=== PATIENT | female | born 1965 | race Hispanic/Latino ===

== ENCOUNTER 2017-10-26 04:34 | Emergency (ER) | payer SELFPAY ==
[2017-10-26 06:22] LABS: BASOPHILS % (AUTO) 0.3 % (0.0-5.0); EOSINOPHILS % (AUTO) 1.5 % (0.0-8.0); HEMATOCRIT 42.7 % (36-48); LYMPHOCYTES % (AUTO) 37.8 % (21.0-51.0); MEAN CORPUSCULAR HEMOGLOBIN 26.5 pg (27.0-33.0); MEAN CORPUSCULAR HGB CONC 34.3 g/dL (32.0-36.0); MEAN CORPUSCULAR VOLUME 77.3 fL (79-99); MONOCYTES % (AUTO) 5.7 % (3.0-13.0); NEUTROPHILS % (AUTO) 54.7 % (40.0-77.0); NUCLEATED RED BLOOD CELLS 0.1 % (0.0-0.19); PLATELET COUNT (AUTO) 179 K/uL (130-400); RED BLOOD CELL COUNT(AUTO) 5.53 MIL/uL (4.00-5.50); RED CELL DISTRIBUTION WIDTH 14.6 % (11.0-15.5); WHITE BLOOD COUNT (AUTO) 5.3 K/uL (4.8-10.8)
[2017-10-26 06:33] LABS: CREATININE 0.6 mg/dL (0.5-1.5); POTASSIUM 3.7 mmol/L (3.5-5.1)
[2017-10-26 06:36] LABS: APPEARANCE,URINE CLEAR (CLEAR); BILIRUBIN,URINE NEGATIVE (NEGATIVE); COLOR,URINE YELLOW (YELLOW); GLUCOSE, URINE (UA) >=1000 mg/dL (NEGATIVE); KETONES,URINE NEGATIVE (NEGATIVE); LEUKOCYTE ESTERASE ,URINE SMALL (NEGATIVE); NITRATE,URINE NEGATIVE (NEGATIVE); OCCULT BLOOD,URINE NEGATIVE (NEGATIVE); PROTEIN,URINE NEGATIVE (NEGATIVE); UROBILINOGEN,URINE 0.2 mg/dL (0.2-1.0)
[2017-10-26 06:39] LABS: ALBUMIN 3.9 g/dL (3.5-5.0); BILIRUBIN,TOTAL 0.3 mg/dL (0.2-1.0); TOTAL PROTEIN, SERUM 8.1 g/dL (6.0-8.3)
[2017-10-26 06:51] LABS: BACTERIA,URINE Few /HPF (None Seen); RBC,URINE 0-1 /HPF (0-1); SQUAMOUS EPITHELIAL CELL,UR Few /LPF (0-2)
[2017-10-26] MEDS ORDERED: IOPAMIDOL-370 100 ML VIAL IV ONE (08:42)
[2017-10-26] MEDS ORDERED: ONDANSETRON HCL 4 MG/2 ML VIAL ONE (09:49)
[2017-10-26] MEDS ORDERED: DiphenhydrAMINE HCL 50 MG/ML VIAL ONE (09:49)
[2017-10-26] MEDS ORDERED: METOCLOPRAMIDE 10 MG/2 ML VIAL ONE (09:49)
[2017-10-26] MEDS ORDERED: KETOROLAC TROMETHAMINE 30MG/ML ONE (09:49)
== END 2017-10-26 12:24 | disposition home or self-care (01) ==
LOC: EDH 04:34
DX: G44.209 Tension-type headache, unspecified, not intractable (principal); R10.9 Unspecified abdominal pain; R10.2 Pelvic and perineal pain; E11.9 Type 2 diabetes mellitus without complications; D64.9 Anemia, unspecified; Z90.49 Acquired absence of other specified parts of digestive tract; Z98.890 Other specified postprocedural states; Z88.5 Allergy status to narcotic agent
CPT/HCPCS: 36415; 74177; 80053; 81001; 85025; 96374; 96375; 99285; J1200; J1885; J2405; J2765; Q9967

== ENCOUNTER 2019-01-03 02:27 | Emergency (ER) | payer SELFPAY ==
[2019-01-03 03:21] LABS: BASOPHILS % (AUTO) 0.3 % (0.0-5.0); EOSINOPHILS % (AUTO) 1.8 % (0.0-8.0); HEMATOCRIT 40.2 % (36-48); MEAN CORPUSCULAR HEMOGLOBIN 26.4 pg (27.0-33.0); MEAN CORPUSCULAR HGB CONC 33.8 g/dL (32.0-36.0); NEUTROPHILS % (AUTO) 53.9 % (40.0-77.0); PLATELET COUNT (AUTO) 180 K/uL (130-400); RED BLOOD CELL COUNT(AUTO) 5.15 MIL/uL (4.00-5.50); RED CELL DISTRIBUTION WIDTH 14.1 % (11.0-15.5); WHITE BLOOD COUNT (AUTO) 5.6 K/uL (4.8-10.8)
[2019-01-03 03:22] LABS: APPEARANCE,URINE Clear (CLEAR); BILIRUBIN,URINE Negative (NEGATIVE); COLOR,URINE Yellow (YELLOW); GLUCOSE, URINE (UA) >=1000 mg/dL (NEGATIVE); KETONES,URINE Negative (NEGATIVE); LEUKOCYTE ESTERASE ,URINE Negative (NEGATIVE); NITRATE,URINE Negative (NEGATIVE); OCCULT BLOOD,URINE Negative (NEGATIVE); PH,URINE 5.5 (5.0-8.0); PROTEIN,URINE Negative (NEGATIVE); UROBILINOGEN,URINE 0.2 mg/dL (0.2-1.0)
[2019-01-03 03:28] LABS: CREATININE 0.7 mg/dL (0.5-1.5); POTASSIUM 3.8 mmol/L (3.5-5.1)
[2019-01-03 03:29] LABS: AMPHET/METH SCREEN,URINE NEGATIVE (NEGATIVE); BARBITURATE SCREEN, URINE NEGATIVE (NEGATIVE); BENZODIAZEPINES SCREEN,URINE NEGATIVE (NEGATIVE); CANNABINOID SCREEN,URINE NEGATIVE (NEGATIVE); COCAINE SCREEN,URINE NEGATIVE (NEGATIVE); OPIATE SCREEN,URINE NEGATIVE (NEGATIVE); PHENCYCLIDINE SCREEN,URINE NEGATIVE (NEGATIVE)
[2019-01-03 03:32] LABS: BILIRUBIN,TOTAL 0.3 mg/dL (0.2-1.0); TOTAL PROTEIN, SERUM 8.2 g/dL (6.0-8.3)
[2019-01-03 03:33] LABS: INR 0.84 (0.85-1.15); PARTIAL THROMBOPLASTIN TIME 27.3 SEC (26.3-35.5); PROTHROMBIN TIME 8.9 SEC (9.6-11.6)
== END 2019-01-03 05:27 | disposition home or self-care (01) ==
LOC: EDH 02:27
DX: E11.65 Type 2 diabetes mellitus with hyperglycemia (principal); E86.0 Dehydration; R53.1 Weakness; Z90.49 Acquired absence of other specified parts of digestive tract; Z98.890 Other specified postprocedural states; Z88.6 Allergy status to analgesic agent
CPT/HCPCS: 36415; 71045; 80053; 80305; 81003; 82150; 82550; 83690; 84484; 85025; 85610; 85730; 93005; 96360; 96374

== ENCOUNTER 2019-04-04 19:18 | Emergency (ER) | payer SELFPAY ==
[2019-04-04] MEDS ORDERED: FAMOTIDINE/PF 20 MG/2 ML VIAL IV ONE (19:55)
[2019-04-04 20:18] LABS: BASOPHILS % (AUTO) 0.3 % (0.0-5.0); EOSINOPHILS % (AUTO) 1.8 % (0.0-8.0); HEMATOCRIT 39.5 % (36-48); LYMPHOCYTES % (AUTO) 39.3 % (21.0-51.0); MEAN CORPUSCULAR HEMOGLOBIN 26.6 pg (27.0-33.0); MEAN CORPUSCULAR HGB CONC 33.3 g/dL (32.0-36.0); MEAN CORPUSCULAR VOLUME 79.9 fL (79-99); MONOCYTES % (AUTO) 8.8 % (3.0-13.0); NEUTROPHILS % (AUTO) 49.8 % (40.0-77.0); NUCLEATED RED BLOOD CELLS 0.1 % (0.0-0.19); PLATELET COUNT (AUTO) 137 K/uL (130-400); RED BLOOD CELL COUNT(AUTO) 4.94 MIL/uL (4.00-5.50); RED CELL DISTRIBUTION WIDTH 13.9 % (11.0-15.5); WHITE BLOOD COUNT (AUTO) 3.5 K/uL (4.8-10.8)
[2019-04-04 20:27] LABS: CREATININE 0.7 mg/dL (0.5-1.5); POTASSIUM 3.2 mmol/L (3.5-5.1)
[2019-04-04 20:34] LABS: ALBUMIN 3.7 g/dL (3.5-5.0); BILIRUBIN,DIRECT 0.1 mg/dL (0.0-0.3); BILIRUBIN,TOTAL 0.3 mg/dL (0.2-1.0); TOTAL PROTEIN, SERUM 7.7 g/dL (6.0-8.3)
[2019-04-04] MEDS ORDERED: SODIUM CHLORIDE 0.9% 1000ML 1,000 ML IV ONE (20:45)
[2019-04-04 20:49] LABS: B-TYPE NATRIURETIC PEPTIDE 13 pg/mL (0-100)
[2019-04-04 21:14] LABS: APPEARANCE,URINE Clear (CLEAR); BILIRUBIN,URINE Negative (NEGATIVE); COLOR,URINE Yellow (YELLOW); GLUCOSE, URINE (UA) >=1000 mg/dL (NEGATIVE); KETONES,URINE Trace mg/dL (NEGATIVE); LEUKOCYTE ESTERASE ,URINE Negative (NEGATIVE); NITRATE,URINE Negative (NEGATIVE); OCCULT BLOOD,URINE Negative (NEGATIVE); PROTEIN,URINE Trace mg/dL (NEGATIVE)
[2019-04-04 21:33] LABS: BACTERIA,URINE Few /HPF (None Seen); MUCUS,URINE Few LPF (None Seen); RBC,URINE 0-1 /HPF (0-1); WBC,URINE 0-1 /HPF (0-1); YEAST,URINE BUDDING Few /HPF (None Seen)
== END 2019-04-04 22:39 | disposition home or self-care (01) ==
LOC: EDH 19:18
DX: R10.13 Epigastric pain (principal); R19.7 Diarrhea, unspecified; B96.81 Helicobacter pylori [H. pylori] as the cause of diseases classified elsewhere; E11.9 Type 2 diabetes mellitus without complications; Z88.5 Allergy status to narcotic agent
CPT/HCPCS: 36415; 80048; 80076; 81001; 82550; 83690; 83880; 84484; 85025; 86677; 93005; 96361; 96374; 99285; J3490; J7030

== ENCOUNTER 2020-01-07 01:17 | Observation (INO) | payer SELFPAY ==
[2020-01-07] MEDS ORDERED: NITROGLYCERIN 1GM/1 INCH PACKET TD ONE (01:37)
[2020-01-07] MEDS ORDERED: ASPIRIN 325 MG TABLET ONE (01:37)
[2020-01-07] MEDS ORDERED: ACETAMINOPHEN EXTRA STRENGTH 500 MG TABLET ONE (01:38)
[2020-01-07 01:55] LABS: BASOPHILS % (AUTO) 0.2 % (0.0-5.0); EOSINOPHILS % (AUTO) 1.1 % (0.0-8.0); HEMATOCRIT 40.1 % (36-48); LYMPHOCYTES % (AUTO) 44.9 % (21.0-51.0); MEAN CORPUSCULAR HEMOGLOBIN 26.4 pg (27.0-33.0); MEAN CORPUSCULAR HGB CONC 33.9 g/dL (32.0-36.0); MEAN CORPUSCULAR VOLUME 77.7 fL (79-99); MONOCYTES % (AUTO) 6.8 % (3.0-13.0); PLATELET COUNT (AUTO) 179 K/uL (130-400); RED BLOOD CELL COUNT(AUTO) 5.16 MIL/uL (4.00-5.50); RED CELL DISTRIBUTION WIDTH 12.7 % (11.0-15.5); WHITE BLOOD COUNT (AUTO) 5.3 K/uL (4.8-10.8)
[2020-01-07 02:10] LABS: INR 0.9 (0.85-1.15); PARTIAL THROMBOPLASTIN TIME 25.4 SEC (26.3-35.5); PROTHROMBIN TIME 9.8 SEC (9.6-11.6)
[2020-01-07 02:14] LABS: CREATININE 0.8 mg/dL (0.5-1.5); POTASSIUM 3.8 mmol/L (3.5-5.1)
[2020-01-07 02:19] LABS: ALBUMIN 4.2 g/dL (3.5-5.0); BILIRUBIN,TOTAL 0.3 mg/dL (0.2-1.0); TOTAL PROTEIN, SERUM 8.2 g/dL (6.0-8.3)
[2020-01-07 02:29] LABS: B-TYPE NATRIURETIC PEPTIDE 10 pg/mL (0-100)
[2020-01-07] MEDS ORDERED: LACTULOSE 20 GM/30 ML UDCUP PO PRN (03:00)
[2020-01-07] MEDS ORDERED: ONDANSETRON HCL 4 MG/2 ML VIAL IV PRN (03:00)
[2020-01-07] MEDS ORDERED: NITROGLYCERIN 0.4 MG SL TAB SL PRN (03:00)
[2020-01-07] MEDS ORDERED: HYDRALAZINE HCL 20 MG/ML VIAL IV PRN (03:00)
[2020-01-07] MEDS ORDERED: ACETAMINOPHEN 325 MG TAB PO PRN (03:00)
[2020-01-07] MEDS: SODIUM CHLORIDE 0.9% 1000ML 1,000 ML IV SCH ×2 (05:10→16:58)
[2020-01-07 05:30] VITALS: BP 160/77
--- NOTE | 2020-01-07 05:30 | NUR ---
ADMISSION PT TRANSFERRED FROM ER INTO ROOM 308, AWAKE, ALERT AND VERBALLY RESPONSIVE. NO C/O PAIN OR DISCOMFORT AT THIS TIME. TELEMETRY PLACED. PT ORIENTED TO ROOM, CALL GRAMAJO WITHIN REACH, BED IN LOWEST POSITION Addendum: 01/07/20 at 0653 by YESSICA LARA RN Amended: Links added.
[2020-01-07 05:38] LABS: HEMOGLOBIN A1C 11.5 % (4.0-6.0); THYROID STIMULATING HORMONE 2.82 uIU/mL (0.36-3.74)
[2020-01-07 07:18] VITALS: BP 139/69
[2020-01-07] MEDS ORDERED: INSLAN SQ (07:41)
[2020-01-07] MEDS ORDERED: SITA100T12 PO (07:41)
[2020-01-07] MEDS ORDERED: LISI10TA7 PO (07:41)
[2020-01-07] MEDS ORDERED: ATOR40TA69 PO (07:41)
[2020-01-07] MEDS: INSULIN HUMULIN R 100 UNIT/ML 3ML SQ SCH ×3 (07:50→18:00)
[2020-01-07] MEDS ORDERED: ASPIRIN 81MG TAB.CHEW ONE (08:00)
[2020-01-07] MEDS: FAMOTIDINE 20MG TAB 20 MG TAB PO SCH ×2 (08:26→21:17)
[2020-01-07] MEDS: ASPIRIN 81MG TAB.CHEW PO SCH (08:26)
[2020-01-07] MEDS: METOPROLOL TARTRATE 25 MG TAB PO SCH ×2 (08:27→21:17)
[2020-01-07] MEDS: ENOXAPARIN SODIUM 40 MG/0.4 ML SYRINGE SQ SCH (08:36)
[2020-01-07] MEDS: ACETAMINOPHEN 325 MG TAB PO PRN (08:38)
[2020-01-07] MEDS ORDERED: LISINOPRIL 10 MG TABLET PO SCH ×2 (09:00→21:00)
[2020-01-07 10:48] VITALS: BP 110/59
[2020-01-07 15:43] VITALS: BP 103/53
--- NOTE | 2020-01-07 16:25 | NUR ---
CM NOTE/IA MEET WITH PATIENT IN ROOM. PER PATIENT IS INDEPENDENT WITH ADLS, LIVES WITH SPOUSE, DOESNT DRIVE AT THE MOMENT DUE TO CATARACT BUT SPOUSE DRIVES TO APPOINTMENTS, NO DME IN USE, NO COMMUNITY RESOURCES IN USE, AND FEELS SAFE TO RETURN HOME ONCE DISCHARGE. PATIENT IS UNINSURED, SELF PAY PACKET ALONG WITH GOOD RX COUPON GIVEN, PATIENT VERBALIZED UNDERSTANDING OF PACKET AND COUPON. Addendum: 01/07/20 at 1626 by ALEXUS CASAS RN CM Amended: Links added.
[2020-01-07 20:00] VITALS: BP 118/60
[2020-01-07] MEDS ORDERED: ATORVASTATIN CALCIUM 20 MG TABLET PO SCH (21:00)
[2020-01-08] VITALS: BP 138/68
[2020-01-08] MEDS: SODIUM CHLORIDE 0.9% 1000ML 1,000 ML IV SCH ×2 (01:42→09:37)
[2020-01-08] MEDS: ACETAMINOPHEN 325 MG TAB PO PRN (02:27)
[2020-01-08 03:56] VITALS: BP 131/62
[2020-01-08] MEDS ORDERED: KETOROLAC TROMETHAMINE 15MG/ML IV PRN (05:15)
[2020-01-08 05:30] LABS: BASOPHILS % (AUTO) 0.2 % (0.0-5.0); EOSINOPHILS % (AUTO) 1.3 % (0.0-8.0); HEMATOCRIT 34.1 % (36-48); LYMPHOCYTES % (AUTO) 37.1 % (21.0-51.0); MEAN CORPUSCULAR HEMOGLOBIN 26.4 pg (27.0-33.0); MEAN CORPUSCULAR HGB CONC 33.7 g/dL (32.0-36.0); MEAN CORPUSCULAR VOLUME 78.2 fL (79-99); NEUTROPHILS % (AUTO) 55.2 % (40.0-77.0); PLATELET COUNT (AUTO) 133 K/uL (130-400); RED BLOOD CELL COUNT(AUTO) 4.36 MIL/uL (4.00-5.50); RED CELL DISTRIBUTION WIDTH 12.7 % (11.0-15.5); WHITE BLOOD COUNT (AUTO) 5.4 K/uL (4.8-10.8)
[2020-01-08 05:37] LABS: CREATININE 0.6 mg/dL (0.5-1.5); POTASSIUM 3.5 mmol/L (3.5-5.1)
--- NOTE | 2020-01-08 06:00 | NUR ---
PATIENT COMPLAINED ON AND OFF PAIN ON RIGHT FLANK. SPOKE WITH YESIKA NAVAL ENGINEER, SHE ORDERED URINALYSIS, AND TORADOL PRN IV. COMFORT MEasures rendered. pt denied any dyspnea nor chest pain overnight. no headache nor dizziness nor nausea nor vomiting,
[2020-01-08] MEDS: INSULIN HUMULIN R 100 UNIT/ML 3ML SQ SCH ×4 (06:35→16:41)
[2020-01-08 08:00] VITALS: BP 135/61
[2020-01-08 08:39] LABS: APPEARANCE,URINE Clear (CLEAR); BILIRUBIN,URINE Negative (NEGATIVE); COLOR,URINE Yellow (YELLOW); GLUCOSE, URINE (UA) Negative (NEGATIVE); KETONES,URINE Negative (NEGATIVE); LEUKOCYTE ESTERASE ,URINE Small (NEGATIVE); NITRATE,URINE Negative (NEGATIVE); OCCULT BLOOD,URINE Negative (NEGATIVE); PROTEIN,URINE Negative (NEGATIVE); UROBILINOGEN,URINE 0.2 mg/dL (0.2-1.0)
[2020-01-08 08:58] LABS: BACTERIA,URINE Rare /HPF (None Seen); RBC,URINE None Seen /HPF (0-1)
[2020-01-08] MEDS ORDERED: LINAGLIPTIN 5 MG TABLET PO SCH (09:00)
[2020-01-08] MEDS: ASPIRIN 81MG TAB.CHEW PO SCH (09:06)
[2020-01-08] MEDS: FAMOTIDINE 20MG TAB 20 MG TAB PO SCH (09:07)
[2020-01-08] MEDS: METOPROLOL TARTRATE 25 MG TAB PO SCH (09:07)
[2020-01-08] MEDS: ENOXAPARIN SODIUM 40 MG/0.4 ML SYRINGE SQ SCH (09:08)
[2020-01-08 11:00] VITALS: BP 131/60
--- NOTE | 2020-01-08 11:30 | NUR ---
Jamil BUCHANAN, FOUNTAIN ATTENDANT Jamil BUCHANAN, FOUNTAIN ATTENDANT ROUNDING AT THIS TIME. UPDATED ON PATIENT STATUS, RIGHT FLANK PAIN CONTINUES AND PENDING URINE CULTURE RESULTS. Jamil BUCHANAN ORDERED TO ADVANCE PATIENTS DIET TOLERATED SINCE PATIENT STILL NPO.
[2020-01-08 16:00] VITALS: BP 130/58
== END 2020-01-08 18:00 | disposition home or self-care (01) ==
LOC: EDH 01:17 → EDHIP 01:18 → INTOOBSV 01:18 → OBSVTOIN 01:18 → 3BH 04:47
PROVIDERS: ADMIT Internal Medicine; ATTEND Internal Medicine
DX: I16.0 Hypertensive urgency (principal); E11.65 Type 2 diabetes mellitus with hyperglycemia; E78.5 Hyperlipidemia, unspecified; E78.00 Pure hypercholesterolemia, unspecified; Z90.721 Acquired absence of ovaries, unilateral; Z88.5 Allergy status to narcotic agent
CPT/HCPCS: 36415 ×2; 71045; 74176; 80048; 80053; 80061; 81001; 82550; 82948 ×6; 83036; 83690 ×2; 83880; 84443; 84484 ×3; 85025 ×2; 85610; 85730; 87088; 93005 ×3; 96361 ×2; 96372 ×3; 96374; 99291; A4600; G0378 ×24; J1650 ×2; J1815 ×3; J1885; J7030

== ENCOUNTER 2020-06-04 07:46 | Emergency (ER) | payer OTHER ==
[~2020-06-04 07:46] MED LIST: ATOR40TA69 PO; INSLAN SQ; LISI10TA7 PO; SITA100T12 PO
[2020-06-04] MEDS ORDERED: CLONIDINE HCL 0.2 MG TABLET PO ONE (08:22)
[2020-06-04] MEDS ORDERED: ACETAMINOPHEN EXTRA STRENGTH 500 MG TABLET ONE (08:24)
[2020-06-04 09:03] LABS: BASOPHILS % (AUTO) 0.2 % (0.0-5.0); EOSINOPHILS % (AUTO) 2.4 % (0.0-8.0); HEMATOCRIT 38.7 % (36-48); LYMPHOCYTES % (AUTO) 40.2 % (21.0-51.0); MEAN CORPUSCULAR HEMOGLOBIN 26.4 pg (27.0-33.0); MEAN CORPUSCULAR HGB CONC 33.6 g/dL (32.0-36.0); MEAN CORPUSCULAR VOLUME 78.7 fL (79-99); PLATELET COUNT (AUTO) 186 K/uL (130-400); RED BLOOD CELL COUNT(AUTO) 4.92 MIL/uL (4.00-5.50); WHITE BLOOD COUNT (AUTO) 4.7 K/uL (4.8-10.8)
[2020-06-04 09:34] LABS: ALBUMIN 3.9 g/dL (3.5-5.0); BILIRUBIN,TOTAL 0.3 mg/dL (0.2-1.0); CREATININE 0.8 mg/dL (0.5-1.5); POTASSIUM 3.7 mmol/L (3.5-5.1)
== END 2020-06-04 10:36 | disposition home or self-care (01) ==
LOC: EDH 07:46
DX: R51 Headache (principal); I10 Essential (primary) hypertension; E11.9 Type 2 diabetes mellitus without complications; E78.00 Pure hypercholesterolemia, unspecified; Z98.890 Other specified postprocedural states; Z88.6 Allergy status to analgesic agent
CPT/HCPCS: 36415; 70450; 80053; 82550; 85025

== ENCOUNTER 2020-09-19 14:07 | Emergency (ER) | payer OTHER, SELFPAY ==
[~2020-09-19 14:07] MED LIST changes: +LISI10TA24 PO; -LISI10TA7 PO
[2020-09-19] MEDS ORDERED: IBUPROFEN 600 MG TABLET ONE (15:29)
[2020-09-19] MEDS ORDERED: ONDANSETRON ODT 4MG TAB ONE (15:30)
[2020-09-19] MEDS ORDERED: AZITHROMYCIN 250 MG TABLET PO ONE (15:42)
[2020-09-19 16:09] LABS: BASOPHILS % (AUTO) 0.3 % (0.0-5.0); EOSINOPHILS % (AUTO) 0.3 % (0.0-8.0); HEMATOCRIT 39.6 % (36-48); LYMPHOCYTES % (AUTO) 34.2 % (21.0-51.0); MEAN CORPUSCULAR HGB CONC 33.3 g/dL (32.0-36.0); MEAN CORPUSCULAR VOLUME 78.1 fL (79-99); MONOCYTES % (AUTO) 8.5 % (3.0-13.0); NEUTROPHILS % (AUTO) 56.7 % (40.0-77.0); PLATELET COUNT (AUTO) 149 K/uL (130-400); RED BLOOD CELL COUNT(AUTO) 5.07 MIL/uL (4.00-5.50); RED CELL DISTRIBUTION WIDTH 12.5 % (11.0-15.5); WHITE BLOOD COUNT (AUTO) 3.1 K/uL (4.8-10.8)
[2020-09-19 16:22] LABS: CREATININE 0.7 mg/dL (0.5-1.5); POTASSIUM 4.1 mmol/L (3.5-5.1)
[2020-09-19 16:26] LABS: ALBUMIN 3.8 g/dL (3.5-5.0); BILIRUBIN,TOTAL 0.3 mg/dL (0.2-1.0); TOTAL PROTEIN, SERUM 8.2 g/dL (6.0-8.3)
== END 2020-09-19 16:51 | disposition home or self-care (01) ==
LOC: EDH 14:07
DX: U07.1 COVID-19 (principal); E11.9 Type 2 diabetes mellitus without complications; E78.00 Pure hypercholesterolemia, unspecified; I10 Essential (primary) hypertension; Z98.890 Other specified postprocedural states
CPT/HCPCS: 36415; 71045; 80053; 85025; 87426

== ENCOUNTER 2020-10-02 00:08 | Emergency (ER) | payer SELFPAY ==
[~2020-10-02 00:08] MED LIST changes: -LISI10TA24 PO; +LISI10TA7 PO
[2020-10-02 00:48] LABS: BASOPHILS % (AUTO) 0.3 % (0.0-5.0); EOSINOPHILS % (AUTO) 1.4 % (0.0-8.0); HEMATOCRIT 38.1 % (36-48); LYMPHOCYTES % (AUTO) 32.8 % (21.0-51.0); MEAN CORPUSCULAR HEMOGLOBIN 25.9 pg (27.0-33.0); MEAN CORPUSCULAR HGB CONC 33.1 g/dL (32.0-36.0); MEAN CORPUSCULAR VOLUME 78.2 fL (79-99); MONOCYTES % (AUTO) 5.9 % (3.0-13.0); NEUTROPHILS % (AUTO) 59.3 % (40.0-77.0); PLATELET COUNT (AUTO) 323 K/uL (130-400); RED BLOOD CELL COUNT(AUTO) 4.87 MIL/uL (4.00-5.50); RED CELL DISTRIBUTION WIDTH 12.2 % (11.0-15.5); WHITE BLOOD COUNT (AUTO) 5.8 K/uL (4.8-10.8)
[2020-10-02] MEDS ORDERED: ACETAMINOPHEN EXTRA STRENGTH 500 MG TABLET ONE (00:50)
[2020-10-02 00:56] LABS: APPEARANCE,URINE Clear (CLEAR); BILIRUBIN,URINE Negative (NEGATIVE); COLOR,URINE Yellow (YELLOW); GLUCOSE, URINE (UA) >=1000 mg/dL (NEGATIVE); KETONES,URINE Negative (NEGATIVE); LEUKOCYTE ESTERASE ,URINE Trace (NEGATIVE); NITRATE,URINE Negative (NEGATIVE); OCCULT BLOOD,URINE Negative (NEGATIVE); PH,URINE 7.5 (5.0-8.0); PROTEIN,URINE Negative (NEGATIVE); UROBILINOGEN,URINE 0.2 mg/dL (0.2-1.0)
[2020-10-02 01:04] LABS: CREATININE 0.8 mg/dL (0.5-1.5); POTASSIUM 3.8 mmol/L (3.5-5.1)
[2020-10-02 01:05] LABS: INR 0.98 (0.85-1.15); PROTHROMBIN TIME 10.5 SEC (9.6-11.6)
[2020-10-02 01:07] LABS: BACTERIA,URINE Few /HPF (None Seen); RBC,URINE None Seen /HPF (0-1)
[2020-10-02 01:07] LABS: PARTIAL THROMBOPLASTIN TIME 26.5 SEC (26.3-35.5)
[2020-10-02 01:08] LABS: ALBUMIN 3.5 g/dL (3.5-5.0); BILIRUBIN,TOTAL 0.2 mg/dL (0.2-1.0); MAGNESIUM 1.7 mg/dL (1.80-2.40); PHOSPHORUS 3.4 mg/dL (2.5-4.9); TOTAL PROTEIN, SERUM 8.4 g/dL (6.0-8.3)
[2020-10-02 01:18] LABS: B-TYPE NATRIURETIC PEPTIDE 39 pg/mL (0-100)
[2020-10-02] MEDS ORDERED: MAGNESIUM 2GM PREMIX 50ML 50 ML IV ONE (02:10)
== END 2020-10-02 06:40 | disposition home or self-care (01) ==
LOC: EDH 00:08
DX: U07.1 COVID-19 (principal); I10 Essential (primary) hypertension; E11.9 Type 2 diabetes mellitus without complications; E78.5 Hyperlipidemia, unspecified; Z88.6 Allergy status to analgesic agent; Z98.890 Other specified postprocedural states
CPT/HCPCS: 36415; 71045; 80053; 81001; 83605; 83735; 83880; 84100; 84145; 84484; 85025; 85378; 85610; 85730; 86140; 87040; 93005; 96365; 96366; 99285; J3475

== ENCOUNTER 2020-10-21 19:54 | Emergency (ER) | payer OTHER, SELFPAY ==
[~2020-10-21 19:54] MED LIST changes: +LISI10TA24 PO; -LISI10TA7 PO
[2020-10-21] MEDS ORDERED: METOCLOPRAMIDE 10 MG/2 ML VIAL ONE (20:15)
[2020-10-21 20:16] LABS: APPEARANCE,URINE Clear (CLEAR); BILIRUBIN,URINE Negative (NEGATIVE); COLOR,URINE Yellow (YELLOW); GLUCOSE, URINE (UA) 500 mg/dL (NEGATIVE); KETONES,URINE Negative (NEGATIVE); LEUKOCYTE ESTERASE ,URINE Small (NEGATIVE); NITRATE,URINE Negative (NEGATIVE); OCCULT BLOOD,URINE Negative (NEGATIVE); PH,URINE 6.5 (5.0-8.0); PROTEIN,URINE Negative (NEGATIVE); UROBILINOGEN,URINE 0.2 mg/dL (0.2-1.0)
[2020-10-21] MEDS ORDERED: PANTOPRAZOLE 40 MG/VIAL ONE (20:16)
[2020-10-21] MEDS ORDERED: ONDANSETRON 4MG INJ ONE (20:16)
[2020-10-21] MEDS ORDERED: FAMOTIDINE 20MG VIAL IV ONE (20:17)
[2020-10-21 20:27] LABS: BASOPHILS % (AUTO) 0.2 % (0.0-5.0); EOSINOPHILS % (AUTO) 1.5 % (0.0-8.0); HEMATOCRIT 40.3 % (36-48); LYMPHOCYTES % (AUTO) 42.7 % (21.0-51.0); MEAN CORPUSCULAR HEMOGLOBIN 26.2 pg (27.0-33.0); MEAN CORPUSCULAR HGB CONC 33.7 g/dL (32.0-36.0); MEAN CORPUSCULAR VOLUME 77.5 fL (79-99); MONOCYTES % (AUTO) 5.6 % (3.0-13.0); NEUTROPHILS % (AUTO) 49.8 % (40.0-77.0); PLATELET COUNT (AUTO) 201 K/uL (130-400); RED CELL DISTRIBUTION WIDTH 13.1 % (11.0-15.5)
[2020-10-21 20:30] LABS: BACTERIA,URINE Rare /HPF (None Seen); RBC,URINE 0-1 /HPF (0-1); SQUAMOUS EPITHELIAL CELL,UR Rare /HPF (0-2)
[2020-10-21 20:54] LABS: CREATININE 0.8 mg/dL (0.5-1.5); POTASSIUM 3.5 mmol/L (3.5-5.1)
[2020-10-21 20:58] LABS: ALBUMIN 4.4 g/dL (3.5-5.0); BILIRUBIN,TOTAL 0.5 mg/dL (0.2-1.0); TOTAL PROTEIN, SERUM 8.7 g/dL (6.0-8.3)
[2020-10-22 04:56] LABS: ABG OXYGEN SATURATION 62.4 % (95.0-99.0); BASE EXCESS,VENOUS BLOOD GAS 0.6 (-2.0-3.0); PCO2,VENOUS BLOOD GAS 45 (32-45); PH,VENOUS BLOOD GAS 7.384 (7.350-7.450)
== END 2020-10-21 22:05 | disposition home or self-care (01) ==
LOC: EDH 19:54
DX: K29.00 Acute gastritis without bleeding (principal); E86.0 Dehydration; I10 Essential (primary) hypertension; E11.9 Type 2 diabetes mellitus without complications; E78.00 Pure hypercholesterolemia, unspecified; Z88.6 Allergy status to analgesic agent; Z98.890 Other specified postprocedural states
CPT/HCPCS: 36415; 36600; 71045; 80053; 81001; 82010; 82803; 83605; 83690; 84484; 85025; 93005; 96374; 96375; 99285; C9113; J2405; J2765; J3490

== ENCOUNTER 2020-11-14 23:00 | Emergency (ER) | payer SELFPAY ==
[2020-11-14] MEDS ORDERED: METOCLOPRAMIDE 10 MG/2 ML VIAL ONE (23:25)
[2020-11-14] MEDS ORDERED: HYDROMORPHONE HCL 0.5 MG/0.5 ML ML ONE (23:26)
[2020-11-14] MEDS ORDERED: HYDRALAZINE HCL 20 MG/ML VIAL ONE (23:26)
[2020-11-14 23:39] LABS: BASOPHILS % (AUTO) 0.2 % (0.0-5.0); EOSINOPHILS % (AUTO) 0.9 % (0.0-8.0); HEMATOCRIT 36.4 % (36-48); MEAN CORPUSCULAR HEMOGLOBIN 26.4 pg (27.0-33.0); MEAN CORPUSCULAR HGB CONC 33.8 g/dL (32.0-36.0); MEAN CORPUSCULAR VOLUME 78.1 fL (79-99); MONOCYTES % (AUTO) 5.5 % (3.0-13.0); NEUTROPHILS % (AUTO) 56.2 % (40.0-77.0); PLATELET COUNT (AUTO) 179 K/uL (130-400); RED BLOOD CELL COUNT(AUTO) 4.66 MIL/uL (4.00-5.50); RED CELL DISTRIBUTION WIDTH 13.2 % (11.0-15.5); WHITE BLOOD COUNT (AUTO) 5.7 K/uL (4.8-10.8)
[2020-11-14 23:47] LABS: CREATININE 0.8 mg/dL (0.5-1.5); POTASSIUM 3.6 mmol/L (3.5-5.1)
[2020-11-14 23:52] LABS: ALBUMIN 3.9 g/dL (3.5-5.0); BILIRUBIN,TOTAL 0.2 mg/dL (0.2-1.0); TOTAL PROTEIN, SERUM 7.7 g/dL (6.0-8.3)
[2020-11-15] MEDS ORDERED: HYDROMORPHONE HCL 0.5 MG/0.5 ML ML ONE (04:17)
[2020-11-15] MEDS ORDERED: ACETAZOLAMIDE SODIUM 500 MG VIAL ONE (06:23)
[2020-11-15] MEDS ORDERED: LATANOPROST 2.5 ML DROPS OU SCH (07:15)
== END 2020-11-15 07:33 | disposition home or self-care (01) ==
LOC: EDH 23:00
DX: I10 Essential (primary) hypertension (principal); R51.9 Headache, unspecified; M54.2 Cervicalgia; Z98.890 Other specified postprocedural states; E11.9 Type 2 diabetes mellitus without complications; E78.00 Pure hypercholesterolemia, unspecified; Z88.6 Allergy status to analgesic agent; Z20.822 Contact with and (suspected) exposure to COVID-19
CPT/HCPCS: 36415; 70450; 80053; 85025; 87426; 96365; 96375 ×2; 96376; 99285; C9803; J0360; J1120; J1170 ×2; J2765; U0003

== ENCOUNTER 2020-12-05 23:32 | Emergency (ER) | payer OTHER ==
[2020-12-05 23:57] LABS: BASOPHILS % (AUTO) 0.2 % (0.0-5.0); EOSINOPHILS % (AUTO) 1.4 % (0.0-8.0); HEMATOCRIT 36.4 % (36-48); LYMPHOCYTES % (AUTO) 43.7 % (21.0-51.0); MEAN CORPUSCULAR HEMOGLOBIN 26.3 pg (27.0-33.0); MEAN CORPUSCULAR HGB CONC 33.5 g/dL (32.0-36.0); MEAN CORPUSCULAR VOLUME 78.4 fL (79-99); NEUTROPHILS % (AUTO) 48.3 % (40.0-77.0); PLATELET COUNT (AUTO) 236 K/uL (130-400); RED BLOOD CELL COUNT(AUTO) 4.64 MIL/uL (4.00-5.50); RED CELL DISTRIBUTION WIDTH 14.3 % (11.0-15.5); WHITE BLOOD COUNT (AUTO) 5.6 K/uL (4.8-10.8)
[2020-12-06 00:07] LABS: APPEARANCE,URINE Clear (CLEAR); BILIRUBIN,URINE Negative (NEGATIVE); COLOR,URINE Yellow (YELLOW); GLUCOSE, URINE (UA) 500 mg/dL (NEGATIVE); KETONES,URINE Negative (NEGATIVE); LEUKOCYTE ESTERASE ,URINE Moderate (NEGATIVE); NITRATE,URINE Negative (NEGATIVE); OCCULT BLOOD,URINE Negative (NEGATIVE); PH,URINE 6.5 (5.0-8.0); PROTEIN,URINE Negative (NEGATIVE); UROBILINOGEN,URINE 0.2 mg/dL (0.2-1.0)
[2020-12-06 00:17] LABS: BILIRUBIN,TOTAL 0.2 mg/dL (0.2-1.0); CREATININE 0.7 mg/dL (0.5-1.5)
[2020-12-06 00:20] LABS: B-TYPE NATRIURETIC PEPTIDE 14 pg/mL (0-100)
[2020-12-06 00:25] LABS: INR 0.97 (0.85-1.15); PROTHROMBIN TIME 10.6 SEC (9.6-11.6)
[2020-12-06 00:26] LABS: PARTIAL THROMBOPLASTIN TIME 25.4 SEC (26.3-35.5)
[2020-12-06 00:37] LABS: BACTERIA,URINE Few /HPF (None Seen); MUCUS,URINE Moderate LPF (None Seen); RBC,URINE 0-1 /HPF (0-1); SQUAMOUS EPITHELIAL CELL,UR Moderate /HPF (0-2)
[2020-12-06] MEDS ORDERED: LABETALOL 20 MG/4 ML DISP.SYRIN IV ONE (00:37)
[2020-12-06] MEDS ORDERED: CEFTRIAXONE SODIUM 1 GM ONE (02:32)
== END 2020-12-06 03:00 | disposition home or self-care (01) ==
LOC: EDH 23:32
DX: N39.0 Urinary tract infection, site not specified (principal); R07.89 Other chest pain; I10 Essential (primary) hypertension; E11.9 Type 2 diabetes mellitus without complications; E78.00 Pure hypercholesterolemia, unspecified; Z88.6 Allergy status to analgesic agent
CPT/HCPCS: 36415; 71045; 80053; 81001; 82550; 82948; 83880; 84484; 85025; 85610; 85730; 87088; 93005; 96374; 96375; 99285; J0696

== ENCOUNTER 2021-06-18 11:41 | Emergency (ER) | payer SELFPAY ==
[~2021-06-18] VITALS: Ht 162.6 cm; Wt 65.8 kg
[2021-06-18 12:11] LABS: BASOPHILS % (AUTO) 0.4 % (0.0-5.0); EOSINOPHILS % (AUTO) 1.2 % (0.0-8.0); LYMPHOCYTES % (AUTO) 34.2 % (21.0-51.0); MEAN CORPUSCULAR HEMOGLOBIN 25.4 pg (27.0-33.0); MEAN CORPUSCULAR VOLUME 77.1 fL (79-99); PLATELET COUNT (AUTO) 228 K/uL (130-400); RED BLOOD CELL COUNT(AUTO) 5.19 MIL/uL (4.00-5.50); RED CELL DISTRIBUTION WIDTH 13.3 % (11.0-15.5); WHITE BLOOD COUNT (AUTO) 5.6 K/uL (4.8-10.8)
[2021-06-18 12:18] LABS: APPEARANCE,URINE Cloudy (CLEAR); BILIRUBIN,URINE Negative (NEGATIVE); COLOR,URINE Yellow (YELLOW); GLUCOSE, URINE (UA) 500 mg/dL (NEGATIVE); KETONES,URINE Trace mg/dL (NEGATIVE); LEUKOCYTE ESTERASE ,URINE Moderate (NEGATIVE); NITRATE,URINE Negative (NEGATIVE); OCCULT BLOOD,URINE Negative (NEGATIVE); PROTEIN,URINE POS 2+ mg/dL (NEGATIVE)
[2021-06-18 12:21] LABS: CREATININE 0.8 mg/dL (0.5-1.5); POTASSIUM 4.1 mmol/L (3.5-5.1)
[2021-06-18 12:25] LABS: ALBUMIN 4.3 g/dL (3.5-5.0); BILIRUBIN,TOTAL 0.3 mg/dL (0.2-1.0); TOTAL PROTEIN, SERUM 8.7 g/dL (6.0-8.3)
[2021-06-18] MEDS ORDERED: MEPERIDINE-PF 25 MG/ML SYG IVP STA (12:49)
[2021-06-18] MEDS ORDERED: FAMOTIDINE 20MG TAB PO ONE (13:00)
[2021-06-18] MEDS ORDERED: KETOROLAC 30MG VIAL (30MG/ML) IVP ONE (13:00)
[2021-06-18] MEDS ORDERED: ONDANSETRON 4MG INJ IVP ONE (13:00)
[2021-06-18] MEDS ORDERED: LACTATED RINGERS 1000ML 1,000 ML IV ONE (13:00)
[2021-06-18 13:04] LABS: BACTERIA,URINE Few /HPF (None Seen); SQUAMOUS EPITHELIAL CELL,UR Moderate /HPF (0-2)
[2021-06-18] MEDS ORDERED: CEFTRIAXONE 1G VIAL IVP STA (14:00)
[2021-06-18] MEDS ORDERED: ONDA4TAB4 PO (14:20)
[2021-06-18] MEDS ORDERED: IBUP-2088 PO (14:20)
[2021-06-18] MEDS ORDERED: CIPR-278 PO (14:20)
[2021-06-18 15:22] VITALS: BP 163/71
== END 2021-06-18 15:30 | disposition home or self-care (01) ==
LOC: EDH 11:41
DX: N12 Tubulo-interstitial nephritis, not specified as acute or chronic (principal); E11.9 Type 2 diabetes mellitus without complications; I10 Essential (primary) hypertension; E78.00 Pure hypercholesterolemia, unspecified; Z79.1 Long term (current) use of non-steroidal anti-inflammatories (NSAID); Z79.4 Long term (current) use of insulin; Z79.899 Other long term (current) drug therapy; Z88.5 Allergy status to narcotic agent; Z90.49 Acquired absence of other specified parts of digestive tract
CPT/HCPCS: 36415; 76705; 80053; 81001; 82150; 83690; 85025; 87088; 96361; 96374; 96375; 99284; J0696; J1885; J2175; J2405; J7120

== ENCOUNTER 2021-09-17 22:59 | Emergency (ER) | payer MEDICAID ==
[~2021-09-17 22:59] MED LIST changes: +CIPR-278 PO; +IBUP-2088 PO; +ONDA4TAB4 PO
[2021-09-17 23:23] LABS: BASOPHILS % (AUTO) 0.2 % (0.0-5.0); EOSINOPHILS % (AUTO) 1.7 % (0.0-8.0); HEMATOCRIT 39.9 % (36-48); LYMPHOCYTES % (AUTO) 30.6 % (21.0-51.0); MEAN CORPUSCULAR HEMOGLOBIN 25.8 pg (27.0-33.0); MEAN CORPUSCULAR HGB CONC 32.6 g/dL (32.0-36.0); MEAN CORPUSCULAR VOLUME 79.3 fL (79-99); MONOCYTES % (AUTO) 8.1 % (3.0-13.0); NEUTROPHILS % (AUTO) 59.2 % (40.0-77.0); PLATELET COUNT (AUTO) 172 K/uL (130-400); RED BLOOD CELL COUNT(AUTO) 5.03 MIL/uL (4.00-5.50); RED CELL DISTRIBUTION WIDTH 13.3 % (11.0-15.5); WHITE BLOOD COUNT (AUTO) 5.9 K/uL (4.8-10.8)
[2021-09-17] MEDS ORDERED: ACETAMINOPHEN 500 MG TABLET PO ONE (23:30)
[2021-09-17 23:35] LABS: CARBON DIOXIDE 23 mmol/L (21-32); CHLORIDE 101 mmol/L (101-111); CREATININE 0.8 mg/dL (0.5-1.5); GLOMERULAR FILTR. RATE CALC 79 mL/min (>60); GLUCOSE,RANDOM 352 mg/dL (70-105); POTASSIUM 3.8 mmol/L (3.5-5.1); SODIUM SERUM 135 mmol/L (136-145); UREA NITROGEN, BLOOD 18 mg/dL (7-18)
[2021-09-17 23:42] LABS: CRP QUANTITATIVE < 2.00 mg/L (0.00-9.0)
[2021-09-17 23:48] LABS: ALANINE AMINOTRANSFERASE 41 U/L (12-78); ALBUMIN 3.9 g/dL (3.5-5.0); ASPARTATE AMINOTRANSFERASE 24 U/L (10-37); BILIRUBIN,TOTAL 0.3 mg/dL (0.2-1.0); TOTAL PROTEIN, SERUM 7.9 g/dL (6.0-8.3)
[2021-09-17 23:51] LABS: APPEARANCE,URINE Clear (CLEAR); BILIRUBIN,URINE Negative (NEGATIVE); COLOR,URINE Yellow (YELLOW); GLUCOSE, URINE (UA) >=1000 mg/dL (NEGATIVE); KETONES,URINE Negative (NEGATIVE); LEUKOCYTE ESTERASE ,URINE Negative (NEGATIVE); NITRATE,URINE Negative (NEGATIVE); OCCULT BLOOD,URINE Negative (NEGATIVE); PROTEIN,URINE POS 1+ mg/dL (NEGATIVE); UROBILINOGEN,URINE 0.2 mg/dL (0.2-1.0)
[2021-09-17 23:57] LABS: BACTERIA,URINE None Seen /HPF (None Seen); RBC,URINE 0-1 /HPF (0-1); SQUAMOUS EPITHELIAL CELL,UR Rare /HPF (0-2); WBC,URINE 0-1 /HPF (0-1); YEAST,URINE BUDDING None Seen /HPF (None Seen)
[2021-09-18 01:43] VITALS: BP 147/69
== END 2021-09-18 01:42 | disposition home or self-care (01) ==
LOC: EDH 22:59
DX: I10 Essential (primary) hypertension (principal); E11.9 Type 2 diabetes mellitus without complications; E78.00 Pure hypercholesterolemia, unspecified; Z88.5 Allergy status to narcotic agent; Z79.1 Long term (current) use of non-steroidal anti-inflammatories (NSAID); Z79.4 Long term (current) use of insulin; Z79.899 Other long term (current) drug therapy
CPT/HCPCS: 36415; 70450; 71045; 80053; 81001; 84484; 85025; 86140; 93005

== ENCOUNTER 2021-09-24 11:38 | Emergency (ER) | payer MEDICAID ==
[~2021-09-24] VITALS: Ht 154.9 cm; Wt 65.8 kg
[2021-09-24 11:59] LABS: APPEARANCE,URINE Clear (CLEAR); BILIRUBIN,URINE Negative (NEGATIVE); COLOR,URINE Yellow (YELLOW); GLUCOSE, URINE (UA) >=1000 mg/dL (NEGATIVE); KETONES,URINE Negative (NEGATIVE); LEUKOCYTE ESTERASE ,URINE Trace (NEGATIVE); NITRATE,URINE Negative (NEGATIVE); OCCULT BLOOD,URINE Negative (NEGATIVE); PH,URINE 5.5 (5.0-8.0); PROTEIN,URINE Negative (NEGATIVE); UROBILINOGEN,URINE 0.2 mg/dL (0.2-1.0)
[2021-09-24] MEDS ORDERED: KETOROLAC 15MG/ML VIAL (15MG/ML) IM SCH (12:30)
[2021-09-24 12:56] LABS: BASOPHILS % (AUTO) 0.2 % (0.0-5.0); EOSINOPHILS % (AUTO) 1.4 % (0.0-8.0); HEMATOCRIT 37.9 % (36-48); LYMPHOCYTES % (AUTO) 33.5 % (21.0-51.0); MEAN CORPUSCULAR HEMOGLOBIN 26.1 pg (27.0-33.0); MEAN CORPUSCULAR HGB CONC 33.5 g/dL (32.0-36.0); MONOCYTES % (AUTO) 5.8 % (3.0-13.0); NEUTROPHILS % (AUTO) 58.9 % (40.0-77.0); PLATELET COUNT (AUTO) 189 K/uL (130-400); RED BLOOD CELL COUNT(AUTO) 4.86 MIL/uL (4.00-5.50); RED CELL DISTRIBUTION WIDTH 13.2 % (11.0-15.5); WHITE BLOOD COUNT (AUTO) 4.3 K/uL (4.8-10.8)
[2021-09-24 13:10] LABS: CREATININE 0.7 mg/dL (0.5-1.5); POTASSIUM 4.2 mmol/L (3.5-5.1)
[2021-09-24 13:13] LABS: BACTERIA,URINE Rare /HPF (None Seen); RBC,URINE 0-1 /HPF (0-1); SQUAMOUS EPITHELIAL CELL,UR Rare /HPF (0-2); WBC,URINE 0-1 /HPF (0-1)
[2021-09-24 13:14] LABS: ALBUMIN 3.9 g/dL (3.5-5.0); BILIRUBIN,TOTAL 0.2 mg/dL (0.2-1.0); TOTAL PROTEIN, SERUM 8.1 g/dL (6.0-8.3)
[2021-09-24] MEDS ORDERED: HYDROCODONE/ACETAMINOPHEN 5/325 MG TAB PO ONE (14:00)
[2021-09-24] MEDS ORDERED: CEPHALEXIN 500 MG CAPSULE PO ONE (14:00)
[2021-09-24] MEDS ORDERED: CEPH500B PO (14:01)
[2021-09-24] MEDS ORDERED: ACET1TAB25 PO (14:01)
[2021-09-24 14:12] VITALS: BP 157/72
== END 2021-09-24 14:17 | disposition home or self-care (01) ==
LOC: EDH 11:38
DX: N39.0 Urinary tract infection, site not specified (principal); E11.9 Type 2 diabetes mellitus without complications; E78.00 Pure hypercholesterolemia, unspecified; I10 Essential (primary) hypertension; Z88.5 Allergy status to narcotic agent; Z79.1 Long term (current) use of non-steroidal anti-inflammatories (NSAID); Z79.4 Long term (current) use of insulin; Z79.899 Other long term (current) drug therapy; Z90.49 Acquired absence of other specified parts of digestive tract
CPT/HCPCS: 36415; 80053; 81001; 82150; 82550; 83690; 85025; 96372; 99283; J1885

== ENCOUNTER 2021-10-28 11:47 | Emergency (ER) | payer MEDICAID ==
[~2021-10-28] VITALS: Ht 154.9 cm; Wt 68.9 kg
[~2021-10-28 11:47] MED LIST changes: +ACET1TAB25 PO; +CEPH500B PO
[2021-10-28] MEDS ORDERED: ACETAMINOPHEN 500 MG TABLET PO ONE (12:00)
[2021-10-28] MEDS ORDERED: KETOROLAC 30MG VIAL (30MG/ML) IVP ONE (12:00)
[2021-10-28] MEDS ORDERED: ONDANSETRON 4MG INJ IVP ONE (12:00)
[2021-10-28 12:25] LABS: BASOPHILS % (AUTO) 0.2 % (0.0-5.0); EOSINOPHILS % (AUTO) 1.2 % (0.0-8.0); HEMATOCRIT 41.1 % (36-48); LYMPHOCYTES % (AUTO) 34.1 % (21.0-51.0); MEAN CORPUSCULAR HEMOGLOBIN 25.1 pg (27.0-33.0); MEAN CORPUSCULAR HGB CONC 31.9 g/dL (32.0-36.0); MEAN CORPUSCULAR VOLUME 78.7 fL (79-99); MONOCYTES % (AUTO) 4.9 % (3.0-13.0); NEUTROPHILS % (AUTO) 59.4 % (40.0-77.0); PLATELET COUNT (AUTO) 183 K/uL (130-400); RED BLOOD CELL COUNT(AUTO) 5.22 MIL/uL (4.00-5.50); RED CELL DISTRIBUTION WIDTH 13.2 % (11.0-15.5); WHITE BLOOD COUNT (AUTO) 5.7 K/uL (4.8-10.8)
[2021-10-28 12:36] LABS: APPEARANCE,URINE CLEAR (CLEAR); BILIRUBIN,URINE NEGATIVE (NEGATIVE); COLOR,URINE YELLOW (YELLOW); GLUCOSE, URINE (UA) 250 mg/dL (NEGATIVE); KETONES,URINE NEGATIVE (NEGATIVE); LEUKOCYTE ESTERASE ,URINE TRACE (NEGATIVE); NITRATE,URINE NEGATIVE (NEGATIVE); OCCULT BLOOD,URINE NEGATIVE (NEGATIVE); PROTEIN,URINE NEGATIVE (NEGATIVE); UROBILINOGEN,URINE 0.2 mg/dL (0.2-1.0)
[2021-10-28 12:41] VITALS: BP 163/82
[2021-10-28 12:45] LABS: CREATININE 0.7 mg/dL (0.5-1.5); POTASSIUM 4.1 mmol/L (3.5-5.1)
[2021-10-28 12:49] LABS: ALBUMIN 4.1 g/dL (3.5-5.0); BILIRUBIN,TOTAL 0.3 mg/dL (0.2-1.0); TOTAL PROTEIN, SERUM 8.4 g/dL (6.0-8.3)
[2021-10-28 12:55] LABS: BACTERIA,URINE Rare /HPF (None Seen); RBC,URINE None Seen /HPF (0-1); WBC,URINE 0-1 /HPF (0-1)
[2021-10-28] MEDS ORDERED: LACTULOSE 20 GM/30 ML UDCUP PO ONE (13:30)
[2021-10-28] MEDS ORDERED: CEFTRIAXONE 1G VIAL IVP ONE (13:30)
[2021-10-28] MEDS ORDERED: TAMS-1 PO (13:40)
[2021-10-28] MEDS ORDERED: DICY20TA2 PO (13:40)
[2021-10-28] MEDS ORDERED: ONDA4TAB10 PO (13:40)
[2021-10-28] MEDS ORDERED: LACT10PA5 PO (13:40)
[2021-10-28] MEDS ORDERED: CEPH500B PO (13:40)
== END 2021-10-28 14:20 | disposition home or self-care (01) ==
LOC: EDH 11:47
DX: N20.0 Calculus of kidney (principal); N39.0 Urinary tract infection, site not specified; K59.00 Constipation, unspecified; E11.65 Type 2 diabetes mellitus with hyperglycemia; I10 Essential (primary) hypertension; E78.00 Pure hypercholesterolemia, unspecified; Z79.1 Long term (current) use of non-steroidal anti-inflammatories (NSAID); Z79.4 Long term (current) use of insulin; Z79.899 Other long term (current) drug therapy; Z88.5 Allergy status to narcotic agent; Z90.49 Acquired absence of other specified parts of digestive tract
CPT/HCPCS: 36415; 71045; 74176; 80053; 81001; 83690; 84484; 85025; 96374; 96375; 99285; J0696; J1885; J2405

== ENCOUNTER 2021-10-30 03:34 | Observation (INO) | payer MEDICAID ==
[~2021-10-30] VITALS: Ht 154.9 cm; Wt 68.6 kg
[~2021-10-30 03:34] MED LIST changes: +DICY20TA2 PO; +LACT10PA5 PO; +ONDA4TAB10 PO; +TAMS-1 PO
[2021-10-30] MEDS ORDERED: NITROGLYCERIN 1GM OINT 1 INCH/1GM TD ONE (03:52)
[2021-10-30 04:19] LABS: BASOPHILS % (AUTO) 0.2 % (0.0-5.0); HEMATOCRIT 35.6 % (36-48); MEAN CORPUSCULAR HEMOGLOBIN 25.2 pg (27.0-33.0); MEAN CORPUSCULAR HGB CONC 32.3 g/dL (32.0-36.0); MEAN CORPUSCULAR VOLUME 77.9 fL (79-99); MONOCYTES % (AUTO) 7.4 % (3.0-13.0); NEUTROPHILS % (AUTO) 54.2 % (40.0-77.0); PLATELET COUNT (AUTO) 162 K/uL (130-400); RED BLOOD CELL COUNT(AUTO) 4.57 MIL/uL (4.00-5.50); WHITE BLOOD COUNT (AUTO) 5.1 K/uL (4.8-10.8)
[2021-10-30 04:26] LABS: CREATININE 0.7 mg/dL (0.5-1.5); POTASSIUM 3.8 mmol/L (3.5-5.1)
[2021-10-30 04:31] LABS: ALBUMIN 3.8 g/dL (3.5-5.0); BILIRUBIN,TOTAL 0.3 mg/dL (0.2-1.0); TOTAL PROTEIN, SERUM 7.7 g/dL (6.0-8.3)
[2021-10-30 05:05] LABS: APPEARANCE,URINE CLEAR (CLEAR); BILIRUBIN,URINE NEGATIVE (NEGATIVE); COLOR,URINE STRAW (YELLOW); GLUCOSE, URINE (UA) 100 mg/dL (NEGATIVE); KETONES,URINE NEGATIVE (NEGATIVE); LEUKOCYTE ESTERASE ,URINE NEGATIVE (NEGATIVE); NITRATE,URINE NEGATIVE (NEGATIVE); OCCULT BLOOD,URINE NEGATIVE (NEGATIVE); PROTEIN,URINE NEGATIVE (NEGATIVE); UROBILINOGEN,URINE 0.2 mg/dL (0.2-1.0)
[2021-10-30 05:15] LABS: BACTERIA,URINE None Seen /HPF (None Seen); RBC,URINE None Seen /HPF (0-1); SQUAMOUS EPITHELIAL CELL,UR Few /HPF (0-2); WBC,URINE None Seen /HPF (0-1); YEAST,URINE BUDDING None Seen /HPF (None Seen)
[2021-10-30] MEDS ORDERED: ONDANSETRON 4MG INJ IVP PRN (08:30)
[2021-10-30] MEDS ORDERED: KETOROLAC 15MG/ML VIAL (15MG/ML) IV PRN (08:30)
[2021-10-30] MEDS ORDERED: PANTOPRAZOLE 40 MG TAB DR PO SCH (08:30)
[2021-10-30] MEDS: CEPHALEXIN 500 MG CAPSULE PO SCH ×3 (08:56→20:41)
[2021-10-30] MEDS: PANTOPRAZOLE 40 MG TAB DR PO SCH (08:56)
[2021-10-30] MEDS: ASPIRIN 81 MG EC TAB PO SCH (08:56)
[2021-10-30 09:02] LABS: CHOLESTEROL 169 mg/dL (<200); CREATINE KINASE, TOTAL 104 U/L (21-232); HDL CHOLESTEROL 61 mg/dL (35-85); LDL DIRECT 90 mg/dL (0-99); MYOGLOBIN 29 ng/mL (10-92); THYROID STIMULATING HORMONE 1.55 uIU/mL (0.36-3.74); TRIGLYCERIDES 83 mg/dL (30-200)
[2021-10-30 09:08] LABS: % IRON SATURATION 18.9 % (22-44)
[2021-10-30 09:25] LABS: CRP QUANTITATIVE < 2.00 mg/L (0.00-9.0)
[2021-10-30 09:40] LABS: AMPHET/METH SCREEN,URINE NEGATIVE (NEGATIVE); BARBITURATE SCREEN, URINE NEGATIVE (NEGATIVE); BENZODIAZEPINES SCREEN,URINE NEGATIVE (NEGATIVE); CANNABINOID SCREEN,URINE NEGATIVE (NEGATIVE); COCAINE SCREEN,URINE NEGATIVE (NEGATIVE); OPIATE SCREEN,URINE NEGATIVE (NEGATIVE); PHENCYCLIDINE SCREEN,URINE NEGATIVE (NEGATIVE)
[2021-10-30] MEDS ORDERED: 0.9%NACL 1000ML 1,000 ML IV ONE (09:57)
[2021-10-30] MEDS: 0.9%NACL 1000ML 1,000 ML IV SCH (11:05)
[2021-10-30] MEDS: INSULIN HUMULIN R 100 UNIT/ML 3ML SQ SCH ×3 (11:30→21:07)
[2021-10-30] MEDS: NITROGLYCERIN PATCH 0.2 MG/HR TD SCH (11:39)
[2021-10-30] MEDS ORDERED: POLYETHYLENE GLYCOL 3350 17 GM POWD.PACK PO ONE (13:30)
[2021-10-30] MEDS ORDERED: DOCUSATE SODIUM 100 MG CAP PO SCH (13:30)
[2021-10-30] MEDS ORDERED: POLYETHYLENE GLYCOL 3350 17 GM POWD.PACK ONE (14:46)
[2021-10-30] MEDS: ACETAMINOPHEN 500 MG TABLET PO PRN ×2 (16:23→23:31)
[2021-10-30 20:00] VITALS: BP 126/68
[2021-10-30] MEDS: ATORVASTATIN 40 MG TABLET PO SCH (20:41)
[2021-10-31] VITALS (7 sets, daily range): BP systolic 97–186; BP diastolic 47–87
[2021-10-31] MEDS ORDERED: CETI10TA57 PO (01:31)
[2021-10-31] MEDS: 0.9%NACL 1000ML 1,000 ML IV SCH (05:01)
[2021-10-31] MEDS: INSULIN HUMULIN R 100 UNIT/ML 3ML SQ SCH ×4 (06:08→20:54)
[2021-10-31 06:38] LABS: BASOPHILS % (AUTO) 0.2 % (0.0-5.0); EOSINOPHILS % (AUTO) 1.1 % (0.0-8.0); HEMATOCRIT 34.5 % (36-48); LYMPHOCYTES % (AUTO) 47.9 % (21.0-51.0); MEAN CORPUSCULAR VOLUME 78.6 fL (79-99); NEUTROPHILS % (AUTO) 43.6 % (40.0-77.0); PLATELET COUNT (AUTO) 173 K/uL (130-400); RED BLOOD CELL COUNT(AUTO) 4.39 MIL/uL (4.00-5.50); RED CELL DISTRIBUTION WIDTH 13.3 % (11.0-15.5); WHITE BLOOD COUNT (AUTO) 4.7 K/uL (4.8-10.8)
[2021-10-31 06:56] LABS: CREATININE 0.6 mg/dL (0.5-1.5); MAGNESIUM 1.8 mg/dL (1.80-2.40); POTASSIUM 3.8 mmol/L (3.5-5.1)
[2021-10-31] MEDS ORDERED: REGADENOSON 0.4 MG/5 ML PF SYG IVP SCH (08:30)
[2021-10-31] MEDS: CEPHALEXIN 500 MG CAPSULE PO SCH ×3 (09:37→20:46)
[2021-10-31] MEDS: ASPIRIN 81 MG EC TAB PO SCH (09:37)
[2021-10-31] MEDS: NITROGLYCERIN PATCH 0.2 MG/HR TD SCH (09:37)
[2021-10-31] MEDS: PANTOPRAZOLE 40 MG TAB DR PO SCH (09:37)
[2021-10-31] MEDS: ATORVASTATIN 40 MG TABLET PO SCH (20:46)
[2021-10-31] MEDS: ACETAMINOPHEN 500 MG TABLET PO PRN (21:00)
[2021-11-01] MEDS ORDERED: NITROGLYCERIN 0.4 MG SL TAB SL ONE (00:51)
[2021-11-01] MEDS: NITROGLYCERIN 0.4 MG SL TAB SL PRN ×2 (01:23→01:52)
[2021-11-01 03:36] VITALS: BP 121/57
[2021-11-01 04:36] LABS: BASOPHILS % (AUTO) 0.4 % (0.0-5.0); EOSINOPHILS % (AUTO) 1.5 % (0.0-8.0); HEMATOCRIT 32.4 % (36-48); LYMPHOCYTES % (AUTO) 38.8 % (21.0-51.0); MEAN CORPUSCULAR HEMOGLOBIN 25.4 pg (27.0-33.0); MONOCYTES % (AUTO) 5.9 % (3.0-13.0); NEUTROPHILS % (AUTO) 53.2 % (40.0-77.0); PLATELET COUNT (AUTO) 174 K/uL (130-400); RED BLOOD CELL COUNT(AUTO) 4.21 MIL/uL (4.00-5.50); RED CELL DISTRIBUTION WIDTH 13.1 % (11.0-15.5); WHITE BLOOD COUNT (AUTO) 5.4 K/uL (4.8-10.8)
[2021-11-01 04:54] LABS: ALBUMIN 3.1 g/dL (3.5-5.0); BILIRUBIN,TOTAL 0.2 mg/dL (0.2-1.0); CREATININE 0.7 mg/dL (0.5-1.5); POTASSIUM 3.6 mmol/L (3.5-5.1); TOTAL PROTEIN, SERUM 6.6 g/dL (6.0-8.3)
[2021-11-01] MEDS: INSULIN HUMULIN R 100 UNIT/ML 3ML SQ SCH (06:46)
[2021-11-01 07:15] VITALS: BP 143/66
[2021-11-01] MEDS ORDERED: LACTULOSE 20 GM/30 ML UDCUP PR SCH (09:00)
[2021-11-01] MEDS: NITROGLYCERIN PATCH 0.2 MG/HR TD SCH (09:09)
[2021-11-01] MEDS: PANTOPRAZOLE 40 MG TAB DR PO SCH (09:09)
[2021-11-01] MEDS: 0.9%NACL 1000ML 1,000 ML IV SCH (09:10)
[2021-11-01] MEDS: ASPIRIN 81 MG EC TAB PO SCH (09:10)
[2021-11-01] MEDS: CEPHALEXIN 500 MG CAPSULE PO SCH (09:10)
[2021-11-01 11:15] VITALS: BP 157/74
[2021-11-01] MEDS ORDERED: PANT40TA PO (11:25)
[2021-11-01] MEDS ORDERED: AEC81 PO (11:25)
== END 2021-11-01 12:54 | disposition home or self-care (01) ==
LOC: EDH 03:34 → EDHIP 03:35 → UNDOADMOB 08:21 → EDHIP 08:21 → 4DH 10-31 01:15
PROVIDERS: ADMIT Internal Medicine; ATTEND Internal Medicine
DX: R07.89 Other chest pain (principal); Z20.822 Contact with and (suspected) exposure to COVID-19; I20.0 Unstable angina; I16.1 Hypertensive emergency; I10 Essential (primary) hypertension; E78.5 Hyperlipidemia, unspecified; E11.319 Type 2 diabetes mellitus with unspecified diabetic retinopathy without macular edema; D50.9 Iron deficiency anemia, unspecified; E78.00 Pure hypercholesterolemia, unspecified; E11.65 Type 2 diabetes mellitus with hyperglycemia; H54.61 Unqualified visual loss, right eye, normal vision left eye; Z87.442 Personal history of urinary calculi; Z79.899 Other long term (current) drug therapy; Z87.440 Personal history of urinary (tract) infections; Z90.49 Acquired absence of other specified parts of digestive tract; Z86.16 Personal history of COVID-19
CPT/HCPCS: 36415 ×3; 71045; 76705; 76770; 78452; 80048; 80053 ×2; 80061; 80305; 81001; 82550 ×4; 82728; 82948 ×10; 83036; 83540; 83550; 83735; 83874 ×4; 83880; 84145; 84443; 84484 ×6; 85025 ×3; 85651; 86140; 87635; 93005 ×2; 93017; 93306; 96361 ×2; 96372 ×2; 96374; 99285; A9500 ×2; G0378 ×49; J1815 ×3; J1885; J2785; J7030 ×2; 96376

== ENCOUNTER 2022-03-18 21:34 | Emergency (ER) | payer MEDICAID ==
[~2022-03-18] VITALS: Ht 154.9 cm; Wt 68.0 kg
[~2022-03-18 21:34] MED LIST changes: -ACET1TAB25 PO; +AEC81 PO; +CETI10TA57 PO; -CIPR-278 PO; -DICY20TA2 PO; -IBUP-2088 PO; -LACT10PA5 PO; -ONDA4TAB10 PO; -ONDA4TAB4 PO; +PANT40TA PO; -TAMS-1 PO
[2022-03-18] MEDS ORDERED: LABETALOL 20MG VIAL IV ONE (22:30)
[2022-03-18 22:32] LABS: BASOPHILS % (AUTO) 0.2 % (0.0-5.0); EOSINOPHILS % (AUTO) 1.2 % (0.0-8.0); HEMATOCRIT 35.2 % (36-48); LYMPHOCYTES % (AUTO) 34.2 % (21.0-51.0); MEAN CORPUSCULAR HEMOGLOBIN 25.9 pg (27.0-33.0); MEAN CORPUSCULAR HGB CONC 33.5 g/dL (32.0-36.0); MEAN CORPUSCULAR VOLUME 77.2 fL (79-99); MONOCYTES % (AUTO) 5.5 % (3.0-13.0); NEUTROPHILS % (AUTO) 58.7 % (40.0-77.0); PLATELET COUNT (AUTO) 185 K/uL (130-400); RED BLOOD CELL COUNT(AUTO) 4.56 MIL/uL (4.00-5.50); WHITE BLOOD COUNT (AUTO) 5.6 K/uL (4.8-10.8)
[2022-03-18 22:36] LABS: APPEARANCE,URINE Clear (CLEAR); BILIRUBIN,URINE Negative (NEGATIVE); COLOR,URINE Yellow (YELLOW); GLUCOSE, URINE (UA) >=1000 mg/dL (NEGATIVE); KETONES,URINE Negative (NEGATIVE); LEUKOCYTE ESTERASE ,URINE Negative (NEGATIVE); NITRATE,URINE Negative (NEGATIVE); OCCULT BLOOD,URINE Negative (NEGATIVE); PH,URINE 6.5 (5.0-8.0); PROTEIN,URINE Trace mg/dL (NEGATIVE); UROBILINOGEN,URINE 0.2 mg/dL (0.2-1.0)
[2022-03-18 22:48] LABS: AMPHET/METH SCREEN,URINE NEGATIVE (NEGATIVE); BARBITURATE SCREEN, URINE NEGATIVE (NEGATIVE); BENZODIAZEPINES SCREEN,URINE NEGATIVE (NEGATIVE); CANNABINOID SCREEN,URINE NEGATIVE (NEGATIVE); COCAINE SCREEN,URINE NEGATIVE (NEGATIVE); OPIATE SCREEN,URINE NEGATIVE (NEGATIVE); PHENCYCLIDINE SCREEN,URINE NEGATIVE (NEGATIVE)
[2022-03-18 22:49] LABS: CREATININE 0.7 mg/dL (0.5-1.5)
[2022-03-18 22:56] LABS: ALBUMIN 3.6 g/dL (3.5-5.0); TOTAL PROTEIN, SERUM 7.6 g/dL (6.0-8.3)
[2022-03-18 23:02] LABS: BACTERIA,URINE None Seen /HPF (None Seen); RBC,URINE None Seen /HPF (0-1); WBC,URINE None Seen /HPF (0-1)
[2022-03-18] MEDS ORDERED: LABETALOL 20MG SYG IV ONE (23:02)
[2022-03-18 23:09] LABS: B-TYPE NATRIURETIC PEPTIDE 41 pg/mL (0-100)
[2022-03-18] MEDS ORDERED: CLON0.1T PO (23:50)
[2022-03-19 00:40] VITALS: BP 132/74
== END 2022-03-19 00:41 | disposition home or self-care (01) ==
LOC: EDH 21:34
DX: I10 Essential (primary) hypertension (principal); E11.9 Type 2 diabetes mellitus without complications; E78.00 Pure hypercholesterolemia, unspecified; Z88.5 Allergy status to narcotic agent; Z79.82 Long term (current) use of aspirin; Z79.4 Long term (current) use of insulin; Z79.899 Other long term (current) drug therapy; Z87.440 Personal history of urinary (tract) infections; Z87.442 Personal history of urinary calculi; Z90.49 Acquired absence of other specified parts of digestive tract; Z90.721 Acquired absence of ovaries, unilateral
CPT/HCPCS: 36415; 70450; 71045; 80053; 80305; 81001; 83880; 84484; 85025; 93005; 96374

== ENCOUNTER 2022-05-16 18:29 | Emergency (ER) | payer MEDICAID ==
[~2022-05-16] VITALS: Ht 154.9 cm; Wt 74.8 kg
[~2022-05-16 18:29] MED LIST changes: +CLON0.1T PO
[2022-05-16 19:00] LABS: BASOPHILS % (AUTO) 0.2 % (0.0-5.0); EOSINOPHILS % (AUTO) 1.1 % (0.0-8.0); HEMATOCRIT 35.5 % (36-48); LYMPHOCYTES % (AUTO) 34.4 % (21.0-51.0); MEAN CORPUSCULAR HGB CONC 33.2 g/dL (32.0-36.0); MEAN CORPUSCULAR VOLUME 78.2 fL (79-99); MONOCYTES % (AUTO) 6.2 % (3.0-13.0); NEUTROPHILS % (AUTO) 57.6 % (40.0-77.0); PLATELET COUNT (AUTO) 183 K/uL (130-400); RED BLOOD CELL COUNT(AUTO) 4.54 MIL/uL (4.00-5.50); RED CELL DISTRIBUTION WIDTH 13.2 % (11.0-15.5); WHITE BLOOD COUNT (AUTO) 6.3 K/uL (4.8-10.8)
[2022-05-16 19:01] LABS: APPEARANCE,URINE CLEAR (CLEAR); BILIRUBIN,URINE NEGATIVE (NEGATIVE); COLOR,URINE YELLOW (YELLOW); GLUCOSE, URINE (UA) 500 mg/dL (NEGATIVE); KETONES,URINE NEGATIVE (NEGATIVE); LEUKOCYTE ESTERASE ,URINE SMALL (NEGATIVE); NITRATE,URINE NEGATIVE (NEGATIVE); OCCULT BLOOD,URINE TRACE-INTACT (NEGATIVE); PROTEIN,URINE NEGATIVE (NEGATIVE); UROBILINOGEN,URINE 0.2 mg/dL (0.2-1.0)
[2022-05-16 19:12] LABS: CREATININE 0.9 mg/dL (0.5-1.5); POTASSIUM 4.1 mmol/L (3.5-5.1)
[2022-05-16 19:19] LABS: BACTERIA,URINE Few /HPF (None Seen); MUCUS,URINE Rare LPF (None Seen); SQUAMOUS EPITHELIAL CELL,UR Few /HPF (0-2)
[2022-05-16 19:30] LABS: ALBUMIN 3.9 g/dL (3.5-5.0); TOTAL PROTEIN, SERUM 7.9 g/dL (6.0-8.3)
[2022-05-16] MEDS ORDERED: KETOROLAC 30MG VIAL (30MG/ML) IVP ONE (19:30)
[2022-05-16] MEDS ORDERED: ONDANSETRON 4MG INJ IVP ONE (19:30)
[2022-05-16] MEDS ORDERED: KETO10 PO (20:27)
[2022-05-16] MEDS ORDERED: TAMS-1 PO (20:27)
[2022-05-16 20:29] VITALS: BP 130/81
== END 2022-05-16 20:33 | disposition home or self-care (01) ==
LOC: EDH 18:29
DX: N20.0 Calculus of kidney (principal); E11.9 Type 2 diabetes mellitus without complications; E78.00 Pure hypercholesterolemia, unspecified; I10 Essential (primary) hypertension; Z88.6 Allergy status to analgesic agent; Z79.899 Other long term (current) drug therapy; Z79.82 Long term (current) use of aspirin; Z79.4 Long term (current) use of insulin; Z90.89 Acquired absence of other organs; Z98.890 Other specified postprocedural states
CPT/HCPCS: 99284; 74176; 96374; 96375; 84484; 80053; 85025; 86140; 81001; 36415; J2405; J1885

== ENCOUNTER 2022-05-28 00:06 | Observation (INO) | payer MEDICAID ==
[~2022-05-28] VITALS: Ht 154.9 cm; Wt 69.9 kg
[~2022-05-28 00:06] MED LIST changes: +KETO10 PO; +TAMS-1 PO
[2022-05-28 00:44] LABS: CREATININE 0.7 mg/dL (0.5-1.5); POTASSIUM 3.6 mmol/L (3.5-5.1)
[2022-05-28 00:46] LABS: BASOPHILS % (AUTO) 0.3 % (0.0-5.0); EOSINOPHILS % (AUTO) 2.1 % (0.0-8.0); LYMPHOCYTES % (AUTO) 43.4 % (21.0-51.0); MEAN CORPUSCULAR HEMOGLOBIN 26.3 pg (27.0-33.0); MEAN CORPUSCULAR HGB CONC 33.7 g/dL (32.0-36.0); MONOCYTES % (AUTO) 6.7 % (3.0-13.0); NEUTROPHILS % (AUTO) 47.3 % (40.0-77.0); PLATELET COUNT (AUTO) 189 K/uL (130-400); RED BLOOD CELL COUNT(AUTO) 4.49 MIL/uL (4.00-5.50); WHITE BLOOD COUNT (AUTO) 6.3 K/uL (4.8-10.8)
[2022-05-28 00:52] LABS: ALBUMIN 3.7 g/dL (3.5-5.0); TOTAL PROTEIN, SERUM 7.8 g/dL (6.0-8.3)
[2022-05-28] MEDS ORDERED: ACETAMINOPHEN 325 MG TAB PO PRN ×2 (03:00)
[2022-05-28] MEDS ORDERED: ASPIRIN 81MG CHEW TAB PO ONE (03:00)
[2022-05-28] MEDS ORDERED: CLONIDINE HCL 0.1 MG TABLET PO PRN (03:00)
[2022-05-28] MEDS ORDERED: ONDANSETRON 4MG INJ IV PRN (03:00)
[2022-05-28] MEDS ORDERED: HYDROCODONE/ACETAMINOPHEN 5/325 MG TAB PO ONE (04:30)
[2022-05-28] MEDS ORDERED: CYCLOBENZAPRINE HCL 10 MG TABLET PO ONE (04:30)
[2022-05-28] MEDS: NITROGLYCERIN 1GM OINT 1 INCH/1GM TD SCH ×2 (04:32→11:52)
[2022-05-28] MEDS: INSULIN HUMULIN R 100 UNIT/ML 3ML SQ SCH ×2 (07:44→11:52)
[2022-05-28 07:49] VITALS: BP 120/76
[2022-05-28] MEDS ORDERED: ENOXAPARIN SODIUM 40 MG/0.4 ML SYRINGE SQ SCH (09:00)
[2022-05-28] MEDS ORDERED: FAMOTIDINE 20MG TAB PO SCH (09:00)
[2022-05-28] MEDS ORDERED: ASPIRIN 81MG CHEW TAB PO SCH (09:00)
== END 2022-05-28 12:40 | disposition home or self-care (01) ==
LOC: EDH 00:06 → INTOOBSV 00:07 → EDHIP 00:07
PROVIDERS: ADMIT Hospitalist; ATTEND Hospitalist
DX: K52.9 Noninfective gastroenteritis and colitis, unspecified (principal); R07.89 Other chest pain; I16.0 Hypertensive urgency; E11.65 Type 2 diabetes mellitus with hyperglycemia; E78.5 Hyperlipidemia, unspecified; E11.319 Type 2 diabetes mellitus with unspecified diabetic retinopathy without macular edema; H54.61 Unqualified visual loss, right eye, normal vision left eye; I10 Essential (primary) hypertension; Z87.442 Personal history of urinary calculi; Z90.49 Acquired absence of other specified parts of digestive tract; Z79.899 Other long term (current) drug therapy
CPT/HCPCS: 96372; 99285; 83036; 84484 ×3; 80053; 83880; 85025; 82948 ×2; 36415; 71045; 93005; G0378 ×2; J1650; J1815 ×2

== ENCOUNTER 2022-06-19 16:35 | Emergency (ER) | payer MEDICAID ==
[~2022-06-19] VITALS: Ht 154.9 cm; Wt 70.3 kg
[~2022-06-19 16:35] MED LIST changes: -CEPH500B PO
[2022-06-19] MEDS ORDERED: LACTATED RINGERS 1000ML 1,000 ML IV ONE (17:00)
[2022-06-19] MEDS ORDERED: ACETAMINOPHEN 325 MG TAB PO ONE (17:00)
[2022-06-19 17:16] LABS: BASOPHILS % (AUTO) 0.3 % (0.0-5.0); EOSINOPHILS % (AUTO) 0.8 % (0.0-8.0); HEMATOCRIT 34.5 % (36-48); LYMPHOCYTES % (AUTO) 25.4 % (21.0-51.0); MEAN CORPUSCULAR HEMOGLOBIN 26.2 pg (27.0-33.0); MEAN CORPUSCULAR HGB CONC 33.6 g/dL (32.0-36.0); MEAN CORPUSCULAR VOLUME 78.1 fL (79-99); MONOCYTES % (AUTO) 7.2 % (3.0-13.0); NEUTROPHILS % (AUTO) 66.2 % (40.0-77.0); PLATELET COUNT (AUTO) 174 K/uL (130-400); RED BLOOD CELL COUNT(AUTO) 4.42 MIL/uL (4.00-5.50); WHITE BLOOD COUNT (AUTO) 7.1 K/uL (4.8-10.8)
[2022-06-19 17:30] LABS: CREATININE 0.8 mg/dL (0.5-1.5); POTASSIUM 4.3 mmol/L (3.5-5.1)
[2022-06-19 17:44] LABS: ALBUMIN 3.7 g/dL (3.5-5.0); TOTAL PROTEIN, SERUM 7.4 g/dL (6.0-8.3)
[2022-06-19 19:16] LABS: APPEARANCE,URINE CLEAR (CLEAR); BILIRUBIN,URINE NEGATIVE (NEGATIVE); COLOR,URINE COLORLESS (YELLOW); GLUCOSE, URINE (UA) >=1000 mg/dL (NEGATIVE); KETONES,URINE NEGATIVE (NEGATIVE); LEUKOCYTE ESTERASE ,URINE NEGATIVE Leu/uL (NEGATIVE); NITRATE,URINE NEGATIVE (NEGATIVE); OCCULT BLOOD,URINE NEGATIVE (NEGATIVE); PROTEIN,URINE NEGATIVE (NEGATIVE); UROBILINOGEN,URINE 0.2 mg/dL (0.2-1.0)
[2022-06-19 19:24] LABS: RBC,URINE 0-1 /HPF (0-1); SQUAMOUS EPITHELIAL CELL,UR FEW /HPF (0-2)
[2022-06-19] MEDS ORDERED: ONDA4TAB10 PO (21:10)
[2022-06-19] MEDS ORDERED: CEPH500B PO (21:10)
[2022-06-19 21:25] VITALS: BP 153/74
== END 2022-06-19 21:32 | disposition home or self-care (01) ==
LOC: EDH 16:35
DX: N39.0 Urinary tract infection, site not specified (principal); E11.9 Type 2 diabetes mellitus without complications; E78.00 Pure hypercholesterolemia, unspecified; I10 Essential (primary) hypertension; Z90.49 Acquired absence of other specified parts of digestive tract; Z88.6 Allergy status to analgesic agent; Z79.899 Other long term (current) drug therapy
CPT/HCPCS: 99285; 74176; 96360; 84484; 80053; 83690; 85025; 87088; 81001; 36415; 93005; J7120

== ENCOUNTER 2022-07-18 08:53 | Emergency (ER) | payer MEDICAID ==
[~2022-07-18] VITALS: Ht 154.9 cm; Wt 68.9 kg
[~2022-07-18 08:53] MED LIST changes: +CEPH500B PO; +ONDA4TAB10 PO
[2022-07-18 09:58] LABS: BASOPHILS % (AUTO) 0.5 % (0.0-5.0); EOSINOPHILS % (AUTO) 1.1 % (0.0-8.0); HEMATOCRIT 36.5 % (36-48); LYMPHOCYTES % (AUTO) 26.4 % (21.0-51.0); MEAN CORPUSCULAR HEMOGLOBIN 25.9 pg (27.0-33.0); MEAN CORPUSCULAR HGB CONC 33.4 g/dL (32.0-36.0); MEAN CORPUSCULAR VOLUME 77.5 fL (79-99); MONOCYTES % (AUTO) 10.6 % (3.0-13.0); NEUTROPHILS % (AUTO) 61.1 % (40.0-77.0); PLATELET COUNT (AUTO) 156 K/uL (130-400); RED BLOOD CELL COUNT(AUTO) 4.71 MIL/uL (4.00-5.50); RED CELL DISTRIBUTION WIDTH 12.9 % (11.0-15.5); WHITE BLOOD COUNT (AUTO) 3.7 K/uL (4.8-10.8)
[2022-07-18 10:08] LABS: CREATININE 0.6 mg/dL (0.5-1.5); POTASSIUM 3.7 mmol/L (3.5-5.1)
[2022-07-18 10:13] LABS: ALBUMIN 3.7 g/dL (3.5-5.0); TOTAL PROTEIN, SERUM 7.8 g/dL (6.0-8.3)
[2022-07-18 10:28] LABS: APPEARANCE,URINE CLEAR (CLEAR); BILIRUBIN,URINE NEGATIVE (NEGATIVE); COLOR,URINE COLORLESS (YELLOW); GLUCOSE, URINE (UA) 300 mg/dL (NEGATIVE); KETONES,URINE NEGATIVE (NEGATIVE); LEUKOCYTE ESTERASE ,URINE NEGATIVE Leu/uL (NEGATIVE); NITRATE,URINE NEGATIVE (NEGATIVE); PROTEIN,URINE 30 mg/dL (NEGATIVE); UROBILINOGEN,URINE 0.2 mg/dL (0.2-1.0)
[2022-07-18 10:29] LABS: INR 0.93 (0.85-1.15); PROTHROMBIN TIME 9.6 SEC (9.6-11.6)
[2022-07-18 10:31] LABS: PARTIAL THROMBOPLASTIN TIME 25.9 SEC (26.3-35.5)
[2022-07-18 11:11] LABS: WBC,URINE 0-1 /HPF (0-1)
[2022-07-18] MEDS ORDERED: ACETAMINOPHEN 500 MG TABLET PO ONE (12:30)
[2022-07-18 12:52] VITALS: BP 145/88
== END 2022-07-18 12:51 | disposition home or self-care (01) ==
LOC: EDH 08:53
DX: B34.9 Viral infection, unspecified (principal); E11.65 Type 2 diabetes mellitus with hyperglycemia; E78.00 Pure hypercholesterolemia, unspecified; I10 Essential (primary) hypertension; Z88.5 Allergy status to narcotic agent; Z79.84 Long term (current) use of oral hypoglycemic drugs; Z79.82 Long term (current) use of aspirin; Z79.4 Long term (current) use of insulin; Z79.1 Long term (current) use of non-steroidal anti-inflammatories (NSAID); Z20.822 Contact with and (suspected) exposure to COVID-19; Z79.899 Other long term (current) drug therapy
CPT/HCPCS: 99285; 71045; 87635; 82550; 84484; 80053; 85025; 85610; 85730; 87040 ×2; 87088; 87804 ×2; 83605; 81001; 36415; 93005; 84145; C9803

== ENCOUNTER 2022-07-24 20:13 | Emergency (ER) | payer MEDICAID ==
[~2022-07-24] VITALS: Ht 165.1 cm; Wt 71.2 kg
[2022-07-24 20:26] VITALS: BP 173/82
[2022-07-24 21:09] LABS: BASOPHILS % (AUTO) 0.2 % (0.0-5.0); HEMATOCRIT 36.5 % (36-48); LYMPHOCYTES % (AUTO) 39.6 % (21.0-51.0); MEAN CORPUSCULAR HEMOGLOBIN 25.8 pg (27.0-33.0); MEAN CORPUSCULAR HGB CONC 32.9 g/dL (32.0-36.0); MEAN CORPUSCULAR VOLUME 78.5 fL (79-99); MONOCYTES % (AUTO) 5.4 % (3.0-13.0); NEUTROPHILS % (AUTO) 52.6 % (40.0-77.0); PLATELET COUNT (AUTO) 241 K/uL (130-400); RED BLOOD CELL COUNT(AUTO) 4.65 MIL/uL (4.00-5.50); RED CELL DISTRIBUTION WIDTH 13.1 % (11.0-15.5); WHITE BLOOD COUNT (AUTO) 5.6 K/uL (4.8-10.8)
[2022-07-24 21:23] LABS: CREATININE 0.6 mg/dL (0.5-1.5); POTASSIUM 4.3 mmol/L (3.5-5.1)
== END 2022-07-24 22:21 | disposition home or self-care (01) ==
LOC: EDH 20:13
DX: B34.9 Viral infection, unspecified (principal); J06.9 Acute upper respiratory infection, unspecified; E11.9 Type 2 diabetes mellitus without complications; I10 Essential (primary) hypertension; E78.00 Pure hypercholesterolemia, unspecified; Z79.1 Long term (current) use of non-steroidal anti-inflammatories (NSAID); Z79.82 Long term (current) use of aspirin; Z79.84 Long term (current) use of oral hypoglycemic drugs; Z79.4 Long term (current) use of insulin; Z20.822 Contact with and (suspected) exposure to COVID-19; Z79.899 Other long term (current) drug therapy; Z88.6 Allergy status to analgesic agent
CPT/HCPCS: 99285; 71045; 87635; 84484; 80048; 85025; 87804 ×2; 36415; 93005; C9803

== ENCOUNTER 2022-07-29 22:59 | Emergency (ER) | payer MEDICAID ==
[~2022-07-29] VITALS: Ht 154.9 cm; Wt 70.8 kg
[2022-07-29] MEDS ORDERED: ACETAMINOPHEN 325 MG TAB PO ONE (23:30)
[2022-07-29 23:44] LABS: BASOPHILS % (AUTO) 0.1 % (0.0-5.0); EOSINOPHILS % (AUTO) 0.1 % (0.0-8.0); HEMATOCRIT 40.1 % (36-48); LYMPHOCYTES % (AUTO) 9.7 % (21.0-51.0); MEAN CORPUSCULAR HEMOGLOBIN 25.8 pg (27.0-33.0); MEAN CORPUSCULAR HGB CONC 32.9 g/dL (32.0-36.0); MEAN CORPUSCULAR VOLUME 78.3 fL (79-99); MONOCYTES % (AUTO) 3.2 % (3.0-13.0); NEUTROPHILS % (AUTO) 86.5 % (40.0-77.0); PLATELET COUNT (AUTO) 245 K/uL (130-400); RED BLOOD CELL COUNT(AUTO) 5.12 MIL/uL (4.00-5.50); RED CELL DISTRIBUTION WIDTH 12.8 % (11.0-15.5); WHITE BLOOD COUNT (AUTO) 7.6 K/uL (4.8-10.8)
[2022-07-29 23:59] LABS: APPEARANCE,URINE CLEAR (CLEAR); BILIRUBIN,URINE NEGATIVE (NEGATIVE); COLOR,URINE LIGHT-YELLOW (YELLOW); GLUCOSE, URINE (UA) >=1000 mg/dL (NEGATIVE); KETONES,URINE 40 mg/dL (NEGATIVE); LEUKOCYTE ESTERASE ,URINE 250 Leu/uL (NEGATIVE); NITRATE,URINE NEGATIVE (NEGATIVE); OCCULT BLOOD,URINE SMALL (NEGATIVE); PH,URINE 5.5 (5.0-8.0); PROTEIN,URINE 100 mg/dL (NEGATIVE); UROBILINOGEN,URINE 0.2 mg/dL (0.2-1.0)
[2022-07-30 00:01] LABS: SQUAMOUS EPITHELIAL CELL,UR RARE /HPF (0-2)
[2022-07-30 00:08] LABS: CREATININE 0.8 mg/dL (0.5-1.5); TOTAL PROTEIN, SERUM 8.8 g/dL (6.0-8.3)
[2022-07-30] MEDS ORDERED: MAG/ALUM/SIMETH 30 ML UDCUP PO SCH (00:30)
[2022-07-30] MEDS ORDERED: FAMOTIDINE 20MG VIAL IV ONE (00:30)
[2022-07-30] MEDS ORDERED: CEFTRIAXONE 1G VIAL IVP ONE (00:30)
[2022-07-30] MEDS ORDERED: INSULIN HUMULIN R 100 UNIT/ML 3ML IV ONE (00:30)
[2022-07-30] MEDS ORDERED: ONDANSETRON 4MG INJ IVP ONE (00:30)
[2022-07-30] MEDS ORDERED: 0.9%NACL 1000ML 1,000 ML IV ONE (00:30)
[2022-07-30] MEDS ORDERED: PANTOPRAZOLE 40 MG/VIAL ONE (02:27)
[2022-07-30] MEDS ORDERED: HYOSCYAMINE SULFATE 0.125 MG TAB.SUBL SL SCH (02:30)
[2022-07-30] MEDS ORDERED: SUCRALFATE 1 GM TABLET PO SCH (02:30)
[2022-07-30] MEDS ORDERED: PANTOPRAZOLE 40 MG/VIAL IVP ONE (02:30)
[2022-07-30] MEDS ORDERED: FENTANYL CITRATE PF 50 MCG/1 ML 2ML VIAL IVP ONE (04:30)
[2022-07-30] MEDS ORDERED: MACR100 PO (04:54)
[2022-07-30] MEDS ORDERED: SUCR1TAB28 PO (04:54)
[2022-07-30] MEDS ORDERED: PANT40TA55 PO (04:54)
[2022-07-30 05:12] VITALS: BP 132/74
== END 2022-07-30 05:13 | disposition home or self-care (01) ==
LOC: EDH 22:59
DX: N30.00 Acute cystitis without hematuria (principal); E11.65 Type 2 diabetes mellitus with hyperglycemia; Z20.822 Contact with and (suspected) exposure to COVID-19; E78.00 Pure hypercholesterolemia, unspecified; I10 Essential (primary) hypertension; Z88.5 Allergy status to narcotic agent; Z79.899 Other long term (current) drug therapy; Z79.82 Long term (current) use of aspirin; Z79.4 Long term (current) use of insulin; Z79.84 Long term (current) use of oral hypoglycemic drugs; Z90.89 Acquired absence of other organs; Z98.890 Other specified postprocedural states
CPT/HCPCS: 99285; 71045; 87635; 84484; 80053; 83690; 85025; 87040 ×2; 87088; 87804 ×2; 82948; 83605; 81001; 36415; 93005 ×2; 96375; 74176; 96374; C9803; J1815; J3010; J7030; J0696; J2405; S0028; S0164; C9113; J3490

== ENCOUNTER 2022-08-20 07:34 | Emergency (ER) | payer MEDICAID ==
[~2022-08-20] VITALS: Ht 154.9 cm; Wt 69.9 kg
[~2022-08-20 07:34] MED LIST changes: +MACR100 PO; +PANT40TA55 PO; +SUCR1TAB28 PO
[2022-08-20 07:58] LABS: APPEARANCE,URINE CLEAR (CLEAR); BILIRUBIN,URINE NEGATIVE (NEGATIVE); COLOR,URINE LIGHT-YELLOW (YELLOW); GLUCOSE, URINE (UA) 300 mg/dL (NEGATIVE); KETONES,URINE NEGATIVE (NEGATIVE); LEUKOCYTE ESTERASE ,URINE NEGATIVE Leu/uL (NEGATIVE); NITRATE,URINE NEGATIVE (NEGATIVE); OCCULT BLOOD,URINE NEGATIVE (NEGATIVE); PH,URINE 5.5 (5.0-8.0); PROTEIN,URINE 20 mg/dL (NEGATIVE); UROBILINOGEN,URINE 0.2 mg/dL (0.2-1.0)
[2022-08-20 08:06] LABS: BASOPHILS % (AUTO) 0.2 % (0.0-5.0); EOSINOPHILS % (AUTO) 0.8 % (0.0-8.0); HEMATOCRIT 38.9 % (36-48); MEAN CORPUSCULAR HEMOGLOBIN 25.5 pg (27.0-33.0); MEAN CORPUSCULAR HGB CONC 32.9 g/dL (32.0-36.0); MEAN CORPUSCULAR VOLUME 77.5 fL (79-99); MONOCYTES % (AUTO) 5.1 % (3.0-13.0); NEUTROPHILS % (AUTO) 75.5 % (40.0-77.0); PLATELET COUNT (AUTO) 223 K/uL (130-400); RED BLOOD CELL COUNT(AUTO) 5.02 MIL/uL (4.00-5.50); RED CELL DISTRIBUTION WIDTH 13.2 % (11.0-15.5); WHITE BLOOD COUNT (AUTO) 8.4 K/uL (4.8-10.8)
[2022-08-20 08:07] LABS: RBC,URINE 0-1 /HPF (0-1); SQUAMOUS EPITHELIAL CELL,UR RARE /HPF (0-2)
[2022-08-20] MEDS: 0.9%NACL 1000ML 1,000 ML IV ONE (08:08)
[2022-08-20 08:13] LABS: CREATININE 0.8 mg/dL (0.5-1.5); POTASSIUM 3.8 mmol/L (3.5-5.1)
[2022-08-20 08:23] LABS: ALBUMIN 3.6 g/dL (3.5-5.0); TOTAL PROTEIN, SERUM 7.9 g/dL (6.0-8.3)
[2022-08-20] MEDS: KETOROLAC 30MG VIAL (30MG/ML) IVP ONE (08:29)
[2022-08-20] MEDS: ONDANSETRON 4MG INJ IVP ONE (08:30)
[2022-08-20] MEDS ORDERED: ONDA4TAB10 PO (09:16)
[2022-08-20] MEDS ORDERED: HYOS0.124 SL (09:16)
[2022-08-20 09:44] VITALS: BP 148/69
== END 2022-08-20 09:50 | disposition home or self-care (01) ==
LOC: EDH 07:34
DX: R10.11 Right upper quadrant pain (principal); E11.9 Type 2 diabetes mellitus without complications; E78.00 Pure hypercholesterolemia, unspecified; I10 Essential (primary) hypertension; Z88.6 Allergy status to analgesic agent; Z79.899 Other long term (current) drug therapy; Z79.82 Long term (current) use of aspirin; Z79.84 Long term (current) use of oral hypoglycemic drugs; Z79.4 Long term (current) use of insulin; Z90.89 Acquired absence of other organs; Z98.890 Other specified postprocedural states
CPT/HCPCS: 99285; 96374; 76705; 96361; 96375; 84484; 80053; 83690; 85025; 81001; 36415; 93005; J7030; J2405; J1885

== ENCOUNTER 2022-08-27 00:51 | Emergency (ER) | payer MEDICAID ==
[~2022-08-27] VITALS: Ht 154.9 cm; Wt 69.9 kg
[~2022-08-27 00:51] MED LIST changes: +HYOS0.124 SL
[2022-08-27 01:19] VITALS: BP 158/77
[2022-08-27 01:21] LABS: BASOPHILS % (AUTO) 0.2 % (0.0-5.0); EOSINOPHILS % (AUTO) 1.2 % (0.0-8.0); HEMATOCRIT 35.7 % (36-48); LYMPHOCYTES % (AUTO) 19.8 % (21.0-51.0); MEAN CORPUSCULAR HEMOGLOBIN 25.5 pg (27.0-33.0); MEAN CORPUSCULAR HGB CONC 32.2 g/dL (32.0-36.0); MEAN CORPUSCULAR VOLUME 79.2 fL (79-99); MONOCYTES % (AUTO) 6.1 % (3.0-13.0); NEUTROPHILS % (AUTO) 72.4 % (40.0-77.0); PLATELET COUNT (AUTO) 171 K/uL (130-400); RED BLOOD CELL COUNT(AUTO) 4.51 MIL/uL (4.00-5.50); RED CELL DISTRIBUTION WIDTH 13.5 % (11.0-15.5); WHITE BLOOD COUNT (AUTO) 5.8 K/uL (4.8-10.8)
[2022-08-27 01:29] LABS: CREATININE 0.8 mg/dL (0.5-1.5); POTASSIUM 3.7 mmol/L (3.5-5.1)
[2022-08-27 01:33] LABS: ALBUMIN 3.4 g/dL (3.5-5.0); TOTAL PROTEIN, SERUM 7.3 g/dL (6.0-8.3)
[2022-08-27] MEDS ORDERED: ONDANSETRON 4MG INJ IVP ONE (02:00)
[2022-08-27] MEDS ORDERED: 0.9%NACL 1000ML 2,000 ML IV ONE (02:00)
[2022-08-27] MEDS ORDERED: DIPHENOXYLATE HCL/ATROPINE 2.5/0.025 MG TAB PO ONE (02:00)
[2022-08-27] MEDS ORDERED: DIPH1TAB PO (02:02)
[2022-08-27] MEDS ORDERED: ONDA-104 PO (02:02)
== END 2022-08-27 03:33 | disposition home or self-care (01) ==
LOC: EDH 00:53
DX: A08.4 Viral intestinal infection, unspecified (principal); E11.9 Type 2 diabetes mellitus without complications; E78.00 Pure hypercholesterolemia, unspecified; I10 Essential (primary) hypertension; Z90.49 Acquired absence of other specified parts of digestive tract; Z98.890 Other specified postprocedural states; Z88.5 Allergy status to narcotic agent; Z79.899 Other long term (current) drug therapy
CPT/HCPCS: 99283; 96374; 80053; 85025; 36415; J7030; J2405; 96361

== ENCOUNTER 2022-09-17 05:06 | Emergency (ER) | payer MEDICAID ==
[~2022-09-17] VITALS: Ht 154.9 cm; Wt 70.3 kg
[~2022-09-17 05:06] MED LIST changes: +DIPH1TAB PO; +ONDA-104 PO
[2022-09-17] MEDS ORDERED: IBUPROFEN 400 MG TABLET ONE (05:11)
[2022-09-17] MEDS ORDERED: ALBUHFA IH (05:49)
[2022-09-17] MEDS ORDERED: D-ME118S47 PO (05:49)
[2022-09-17] MEDS ORDERED: GUAIFENESIN-DM 200/20 MG 10 ML PO ONE (06:00)
[2022-09-17 06:14] VITALS: BP 147/74
== END 2022-09-17 06:18 | disposition home or self-care (01) ==
LOC: EDH 05:06
DX: U07.1 COVID-19 (principal); I10 Essential (primary) hypertension; E78.00 Pure hypercholesterolemia, unspecified; E11.9 Type 2 diabetes mellitus without complications; Z88.5 Allergy status to narcotic agent; Z79.899 Other long term (current) drug therapy; Z90.89 Acquired absence of other organs

== ENCOUNTER 2022-10-22 18:33 | Emergency (ER) | payer MEDICAID ==
[~2022-10-22] VITALS: Ht 154.9 cm; Wt 69.9 kg
[~2022-10-22 18:33] MED LIST changes: +ALBUHFA IH; +D-ME118S47 PO
[2022-10-22 18:42] VITALS: BP 195/80
[2022-10-22] MEDS ORDERED: IBUP-2070 PO (21:47)
[2022-10-22] MEDS ORDERED: BACI30OI6 TP (21:47)
[2022-10-22] MEDS ORDERED: IBUPROFEN 600 MG TABLET PO ONE (22:00)
== END 2022-10-22 22:11 | disposition home or self-care (01) ==
LOC: EDH 18:33
DX: T23.142A Burn of first degree of multiple left fingers (nail), including thumb, initial encounter (principal); E11.9 Type 2 diabetes mellitus without complications; E78.00 Pure hypercholesterolemia, unspecified; I10 Essential (primary) hypertension; Z79.82 Long term (current) use of aspirin; Z79.84 Long term (current) use of oral hypoglycemic drugs; Z79.899 Other long term (current) drug therapy; Z88.5 Allergy status to narcotic agent; Z90.49 Acquired absence of other specified parts of digestive tract; Z98.890 Other specified postprocedural states; W86.8XXA Exposure to other electric current, initial encounter; Y93.E4 Activity, ironing; Y92.89 Other specified places as the place of occurrence of the external cause; Y99.8 Other external cause status
CPT/HCPCS: 99282

== ENCOUNTER 2023-01-12 20:37 | Emergency (ER) | payer MEDICAID ==
[~2023-01-12] VITALS: Ht 154.9 cm; Wt 69.4 kg
[~2023-01-12 20:37] MED LIST changes: +BACI30OI6 TP; +IBUP-2070 PO; +PHEN-847 PO
[2023-01-12] MEDS ORDERED: ONDANSETRON 4MG INJ ONE (20:51)
[2023-01-12] MEDS ORDERED: ONDANSETRON 4MG INJ IVP ONE (21:00)
[2023-01-12] MEDS ORDERED: 0.9%NACL 1000ML 1,000 ML IV ONE (21:00)
[2023-01-12 21:08] LABS: BASOPHILS % (AUTO) 0.1 % (0.0-5.0); EOSINOPHILS % (AUTO) 1.9 % (0.0-8.0); HEMATOCRIT 38.4 % (36-48); MEAN CORPUSCULAR HEMOGLOBIN 26.1 pg (27.0-33.0); MEAN CORPUSCULAR VOLUME 81.4 fL (79-99); MONOCYTES % (AUTO) 6.5 % (3.0-13.0); NEUTROPHILS % (AUTO) 67.3 % (40.0-77.0); PLATELET COUNT (AUTO) 198 K/uL (130-400); RED BLOOD CELL COUNT(AUTO) 4.72 MIL/uL (4.00-5.50); RED CELL DISTRIBUTION WIDTH 13.2 % (11.0-15.5); WHITE BLOOD COUNT (AUTO) 8.6 K/uL (4.8-10.8)
[2023-01-12 21:27] LABS: CREATININE 0.9 mg/dL (0.5-1.5); POTASSIUM 3.9 mmol/L (3.5-5.1)
[2023-01-12] MEDS ORDERED: LOPERAMIDE HCL 2 MG CAP PO ONE (21:30)
[2023-01-12 21:32] LABS: ALBUMIN 4.2 g/dL (3.5-5.0); TOTAL PROTEIN, SERUM 8.3 g/dL (6.0-8.3)
[2023-01-12 23:03] VITALS: BP 127/63
[2023-01-12 23:10] LABS: APPEARANCE,URINE CLEAR (CLEAR); BILIRUBIN,URINE NEGATIVE (NEGATIVE); COLOR,URINE COLORLESS (YELLOW); GLUCOSE, URINE (UA) 500 mg/dL (NEGATIVE); KETONES,URINE NEGATIVE (NEGATIVE); LEUKOCYTE ESTERASE ,URINE NEGATIVE Leu/uL (NEGATIVE); NITRATE,URINE NEGATIVE (NEGATIVE); OCCULT BLOOD,URINE NEGATIVE (NEGATIVE); PROTEIN,URINE NEGATIVE (NEGATIVE); UROBILINOGEN,URINE 0.2 mg/dL (0.2-1.0)
[2023-01-12 23:11] LABS: SQUAMOUS EPITHELIAL CELL,UR RARE /HPF (0-2); WBC,URINE 0-1 /HPF (0-1)
[2023-01-12] MEDS ORDERED: LOPE2CAP PO (23:31)
[2023-01-12] MEDS ORDERED: ONDA4TAB10 PO (23:31)
== END 2023-01-12 23:54 | disposition home or self-care (01) ==
LOC: EDH 20:37
DX: K52.9 Noninfective gastroenteritis and colitis, unspecified (principal); I10 Essential (primary) hypertension; E11.9 Type 2 diabetes mellitus without complications; E78.00 Pure hypercholesterolemia, unspecified; Z79.82 Long term (current) use of aspirin; Z79.84 Long term (current) use of oral hypoglycemic drugs; Z79.899 Other long term (current) drug therapy; Z88.5 Allergy status to narcotic agent; Z90.49 Acquired absence of other specified parts of digestive tract; Z98.890 Other specified postprocedural states
CPT/HCPCS: 99284; 96374; 96361; 80053; 83690; 85025; 81001; 36415; J7030; J2405

== ENCOUNTER 2023-02-10 15:21 | Emergency (ER) | payer MEDICAID ==
[~2023-02-10] VITALS: Ht 154.9 cm; Wt 67.1 kg
[~2023-02-10 15:21] MED LIST changes: +LOPE2CAP PO
[2023-02-10 17:36] LABS: BASOPHILS % (AUTO) 0.1 % (0.0-5.0); HEMATOCRIT 35.6 % (36-48); LYMPHOCYTES % (AUTO) 21.2 % (21.0-51.0); MEAN CORPUSCULAR HEMOGLOBIN 25.8 pg (27.0-33.0); MEAN CORPUSCULAR HGB CONC 32.6 g/dL (32.0-36.0); MEAN CORPUSCULAR VOLUME 79.3 fL (79-99); MONOCYTES % (AUTO) 5.5 % (3.0-13.0); PLATELET COUNT (AUTO) 245 K/uL (130-400); RED BLOOD CELL COUNT(AUTO) 4.49 MIL/uL (4.00-5.50); RED CELL DISTRIBUTION WIDTH 12.9 % (11.0-15.5)
[2023-02-10 17:46] LABS: APPEARANCE,URINE CLEAR (CLEAR); BILIRUBIN,URINE NEGATIVE (NEGATIVE); COLOR,URINE COLORLESS (YELLOW); GLUCOSE, URINE (UA) >=1000 mg/dL (NEGATIVE); KETONES,URINE NEGATIVE (NEGATIVE); LEUKOCYTE ESTERASE ,URINE NEGATIVE Leu/uL (NEGATIVE); NITRATE,URINE NEGATIVE (NEGATIVE); OCCULT BLOOD,URINE NEGATIVE (NEGATIVE); PROTEIN,URINE 10 mg/dL (NEGATIVE); UROBILINOGEN,URINE 0.2 mg/dL (0.2-1.0)
[2023-02-10 17:48] LABS: RBC,URINE 0-1 /HPF (0-1); WBC,URINE 0-1 /HPF (0-1)
[2023-02-10 18:02] LABS: ALBUMIN 3.5 g/dL (3.5-5.0); CREATININE 0.8 mg/dL (0.5-1.5); POTASSIUM 4.4 mmol/L (3.5-5.1); TOTAL PROTEIN, SERUM 7.9 g/dL (6.0-8.3)
[2023-02-10] MEDS ORDERED: MONT-39 PO (19:03)
[2023-02-10] MEDS ORDERED: BENZ200C53 PO (19:03)
[2023-02-10 19:05] VITALS: BP 161/78
== END 2023-02-10 19:16 | disposition home or self-care (01) ==
LOC: EDH 15:21
DX: R05.9 Cough, unspecified (principal); E11.9 Type 2 diabetes mellitus without complications; E78.00 Pure hypercholesterolemia, unspecified; I10 Essential (primary) hypertension; Z79.4 Long term (current) use of insulin; Z79.82 Long term (current) use of aspirin; Z79.84 Long term (current) use of oral hypoglycemic drugs; Z79.899 Other long term (current) drug therapy; Z88.5 Allergy status to narcotic agent; Z90.49 Acquired absence of other specified parts of digestive tract
CPT/HCPCS: 36415; 70450; 71045; 80053; 81001; 83605; 84484; 85025

== ENCOUNTER 2023-04-18 02:23 | Emergency (ER) | payer MEDICAID ==
[~2023-04-18] VITALS: Ht 154.9 cm; Wt 69.9 kg
[~2023-04-18 02:23] MED LIST changes: +BENZ200C53 PO; +MONT-39 PO
[2023-04-18] MEDS ORDERED: ASPIRIN 325MG TAB PO ONE (03:00)
[2023-04-18 03:29] LABS: BASOPHILS # (AUTO) 0.02 K/uL (0.00-0.20); BASOPHILS % (AUTO) 0.3 % (0.0-5.0); EOSINOPHILS # (AUTO) 0.08 K/uL (0.00-0.70); EOSINOPHILS % (AUTO) 1.3 % (0.0-8.0); HEMATOCRIT 38.7 % (36-48); IMMATURE GRANULOCYTE ABSOLUTE 0.02 K/uL (0-1); LYMPHOCYTES # (AUTO) 1.9 K/uL (1.0-4.8); LYMPHOCYTES % (AUTO) 32.2 % (21.0-51.0); MEAN CORPUSCULAR HEMOGLOBIN 25.6 pg (27.0-33.0); MEAN CORPUSCULAR HGB CONC 33.1 g/dL (32.0-36.0); MEAN CORPUSCULAR VOLUME 77.4 fL (79-99); MONOCYTES # (AUTO) 0.4 K/uL (0.1-1.0); NEUTROPHILS # (AUTO) 3.6 K/uL (1.8-7.7); NEUTROPHILS % (AUTO) 59.9 % (40.0-77.0); PLATELET COUNT (AUTO) 180 K/uL (130-400); RED CELL DISTRIBUTION WIDTH 13.2 % (11.0-15.5)
[2023-04-18 03:37] LABS: CREATININE 0.8 mg/dL (0.5-1.5); POTASSIUM 3.6 mmol/L (3.5-5.1)
[2023-04-18] MEDS ORDERED: DIAZEPAM 5 MG/ML 2 ML SYG IVP ONE (04:00)
[2023-04-18] MEDS ORDERED: NAPR-1192 PO (04:40)
[2023-04-18] MEDS ORDERED: CYCL10TA16 PO (04:40)
[2023-04-18 04:53] VITALS: BP 148/77; PULSE 75; RESP 16; O2SAT 100
== END 2023-04-18 05:06 | disposition home or self-care (01) ==
LOC: EDH 02:23
DX: M62.838 Other muscle spasm (principal); I16.0 Hypertensive urgency; E11.9 Type 2 diabetes mellitus without complications; E78.00 Pure hypercholesterolemia, unspecified; Z79.4 Long term (current) use of insulin; Z79.82 Long term (current) use of aspirin; Z79.84 Long term (current) use of oral hypoglycemic drugs; Z79.899 Other long term (current) drug therapy; Z88.5 Allergy status to narcotic agent; Z90.49 Acquired absence of other specified parts of digestive tract
CPT/HCPCS: 99285; 96374; 71045; 84484; 80048; 85025; 85378; 36415; 93005; J3360

== ENCOUNTER 2023-06-10 20:32 | Emergency (ER) | payer MEDICAID ==
[~2023-06-10] VITALS: Ht 154.9 cm; Wt 69.4 kg
[~2023-06-10 20:32] MED LIST changes: +BROM118S48 PO; +CYCL10TA16 PO; -D-ME118S47 PO; +NAPR-1192 PO
[2023-06-10] MEDS ORDERED: METOCLOPRAMIDE 10 MG/2 ML VIAL IVP ONE (22:00)
[2023-06-10] MEDS ORDERED: DiphenhydrAMINE HCL 50 MG/ML VIAL IV ONE (22:00)
[2023-06-10] MEDS ORDERED: KETOROLAC 15MG/ML VIAL (15MG/ML) IV ONE (22:00)
[2023-06-10 22:29] LABS: BASOPHILS # (AUTO) 0.01 K/uL (0.00-0.20); BASOPHILS % (AUTO) 0.2 % (0.0-5.0); EOSINOPHILS # (AUTO) 0.08 K/uL (0.00-0.70); EOSINOPHILS % (AUTO) 1.3 % (0.0-8.0); IMMATURE GRANULOCYTE ABSOLUTE 0.01 K/uL (0-1); LYMPHOCYTES # (AUTO) 2.2 K/uL (1.0-4.8); LYMPHOCYTES % (AUTO) 34.9 % (21.0-51.0); MEAN CORPUSCULAR HEMOGLOBIN 25.9 pg (27.0-33.0); MEAN CORPUSCULAR HGB CONC 33.1 g/dL (32.0-36.0); MEAN CORPUSCULAR VOLUME 78.3 fL (79-99); MONOCYTES # (AUTO) 0.3 K/uL (0.1-1.0); MONOCYTES % (AUTO) 5.4 % (3.0-13.0); NEUTROPHILS # (AUTO) 3.7 K/uL (1.8-7.7); PLATELET COUNT (AUTO) 202 K/uL (130-400); RED CELL DISTRIBUTION WIDTH 13.8 % (11.0-15.5); WHITE BLOOD COUNT (AUTO) 6.3 K/uL (4.8-10.8)
[2023-06-10 22:40] LABS: CREATININE 0.8 mg/dL (0.5-1.5); POTASSIUM 4.3 mmol/L (3.5-5.1)
[2023-06-10 22:45] LABS: ALBUMIN 3.6 g/dL (3.5-5.0); BILIRUBIN,TOTAL 0.2 mg/dL (0.2-1.0); TOTAL PROTEIN, SERUM 7.5 g/dL (6.0-8.3)
[2023-06-10 23:13] LABS: APPEARANCE,URINE CLEAR (CLEAR); BILIRUBIN,URINE NEGATIVE (NEGATIVE); COLOR,URINE COLORLESS (YELLOW); GLUCOSE, URINE (UA) 500 mg/dL (NEGATIVE); KETONES,URINE NEGATIVE (NEGATIVE); LEUKOCYTE ESTERASE ,URINE NEGATIVE Leu/uL (NEGATIVE); NITRATE,URINE NEGATIVE (NEGATIVE); OCCULT BLOOD,URINE NEGATIVE (NEGATIVE); PROTEIN,URINE NEGATIVE (NEGATIVE); UROBILINOGEN,URINE 0.2 mg/dL (0.2-1.0)
[2023-06-10 23:16] LABS: ADD UA MICROSCOPIC YES
[2023-06-10 23:17] LABS: RBC,URINE 0-1 /HPF (0-1); SQUAMOUS EPITHELIAL CELL,UR RARE /HPF (0-2)
[2023-06-10 23:20] VITALS: BP 151/78; PULSE 80; RESP 16; O2SAT 99
== END 2023-06-10 23:29 | disposition home or self-care (01) ==
LOC: EDH 20:32
DX: I10 Essential (primary) hypertension (principal); R51.9 Headache, unspecified; R53.1 Weakness; E11.9 Type 2 diabetes mellitus without complications; E78.00 Pure hypercholesterolemia, unspecified; Z79.4 Long term (current) use of insulin; Z79.82 Long term (current) use of aspirin; Z79.84 Long term (current) use of oral hypoglycemic drugs; Z79.899 Other long term (current) drug therapy; Z88.5 Allergy status to narcotic agent; Z90.49 Acquired absence of other specified parts of digestive tract
CPT/HCPCS: 99285; 96374; 70450; 96375; 80053; 85025; 81001; 36415; J1200; J2765; J1885

== ENCOUNTER 2023-06-13 19:03 | Emergency (ER) | payer MEDICAID ==
[2023-06-13 19:40] LABS: BASOPHILS # (AUTO) 0.02 K/uL (0.00-0.20); BASOPHILS % (AUTO) 0.4 % (0.0-5.0); EOSINOPHILS # (AUTO) 0.08 K/uL (0.00-0.70); EOSINOPHILS % (AUTO) 1.4 % (0.0-8.0); HEMATOCRIT 34.9 % (36-48); IMMATURE GRANULOCYTE ABSOLUTE 0.01 K/uL (0-1); LYMPHOCYTES % (AUTO) 34.9 % (21.0-51.0); MEAN CORPUSCULAR HEMOGLOBIN 25.8 pg (27.0-33.0); MEAN CORPUSCULAR HGB CONC 32.7 g/dL (32.0-36.0); MONOCYTES # (AUTO) 0.4 K/uL (0.1-1.0); MONOCYTES % (AUTO) 6.7 % (3.0-13.0); NEUTROPHILS # (AUTO) 3.2 K/uL (1.8-7.7); NEUTROPHILS % (AUTO) 56.4 % (40.0-77.0); PLATELET COUNT (AUTO) 206 K/uL (130-400); RED BLOOD CELL COUNT(AUTO) 4.42 MIL/uL (4.00-5.50); RED CELL DISTRIBUTION WIDTH 13.4 % (11.0-15.5); WHITE BLOOD COUNT (AUTO) 5.7 K/uL (4.8-10.8)
[2023-06-13 19:42] LABS: APPEARANCE,URINE CLEAR (CLEAR); BILIRUBIN,URINE NEGATIVE (NEGATIVE); COLOR,URINE COLORLESS (YELLOW); GLUCOSE, URINE (UA) 150 mg/dL (NEGATIVE); KETONES,URINE NEGATIVE (NEGATIVE); LEUKOCYTE ESTERASE ,URINE NEGATIVE Leu/uL (NEGATIVE); NITRATE,URINE NEGATIVE (NEGATIVE); OCCULT BLOOD,URINE NEGATIVE (NEGATIVE); PH,URINE 6.5 (5.0-8.0); PROTEIN,URINE NEGATIVE (NEGATIVE); UROBILINOGEN,URINE 0.2 mg/dL (0.2-1.0)
[2023-06-13 19:45] LABS: ADD UA MICROSCOPIC YES
[2023-06-13 19:47] LABS: SQUAMOUS EPITHELIAL CELL,UR RARE /HPF (0-2); WBC,URINE 0-1 /HPF (0-1)
[2023-06-13] MEDS ORDERED: KETOROLAC 60 MG VIAL (30MG/ML) IM ONE (19:53)
[2023-06-13 20:00] LABS: POTASSIUM 5.3 mmol/L (3.5-5.1)
[2023-06-13] MEDS ORDERED: KETOROLAC 30MG VIAL (30MG/ML) IVP ONE (20:00)
[2023-06-13] MEDS ORDERED: FAMOTIDINE 20MG VIAL IV ONE (20:00)
[2023-06-13] MEDS ORDERED: METOCLOPRAMIDE 10 MG/2 ML VIAL IVP ONE (20:00)
[2023-06-13 20:05] LABS: ALBUMIN 3.7 g/dL (3.5-5.0); BILIRUBIN,TOTAL 0.3 mg/dL (0.2-1.0); TOTAL PROTEIN, SERUM 7.6 g/dL (6.0-8.3)
[2023-06-13 20:17] LABS: B-TYPE NATRIURETIC PEPTIDE 10 pg/mL (0-100)
[2023-06-13 21:31] VITALS: BP 156/77; PULSE 75; RESP 16; O2SAT 98
== END 2023-06-13 21:32 | disposition home or self-care (01) ==
LOC: EDH 19:03
DX: I10 Essential (primary) hypertension (principal); G44.209 Tension-type headache, unspecified, not intractable; E11.9 Type 2 diabetes mellitus without complications; E78.00 Pure hypercholesterolemia, unspecified; Z79.4 Long term (current) use of insulin; Z79.82 Long term (current) use of aspirin; Z79.84 Long term (current) use of oral hypoglycemic drugs; Z79.899 Other long term (current) drug therapy; Z88.5 Allergy status to narcotic agent; Z90.49 Acquired absence of other specified parts of digestive tract
CPT/HCPCS: 99285; 96374; 70450; 71045; 96375; 84484; 80053; 83880; 85025; 81001; 36415; 96372; 93005; J1885; J2765; S0028; J3490

== ENCOUNTER 2023-09-28 07:02 | Emergency (ER) | payer MEDICAID ==
[~2023-09-28] VITALS: Ht 154.9 cm; Wt 69.9 kg
[2023-09-28 07:57] LABS: BASOPHILS # (AUTO) 0.01 K/uL (0.00-0.20); BASOPHILS % (AUTO) 0.2 % (0.0-5.0); EOSINOPHILS # (AUTO) 0.01 K/uL (0.00-0.70); EOSINOPHILS % (AUTO) 0.2 % (0.0-8.0); HEMATOCRIT 35.1 % (36-48); IMMATURE GRANULOCYTE ABSOLUTE 0.01 K/uL (0-1); LYMPHOCYTES % (AUTO) 16.5 % (21.0-51.0); MEAN CORPUSCULAR HEMOGLOBIN 26.9 pg (27.0-33.0); MEAN CORPUSCULAR HGB CONC 33.9 g/dL (32.0-36.0); MEAN CORPUSCULAR VOLUME 79.4 fL (79-99); MONOCYTES # (AUTO) 0.5 K/uL (0.1-1.0); MONOCYTES % (AUTO) 8.3 % (3.0-13.0); NEUTROPHILS # (AUTO) 4.6 K/uL (1.8-7.7); NEUTROPHILS % (AUTO) 74.6 % (40.0-77.0); PLATELET COUNT (AUTO) 163 K/uL (130-400); RED BLOOD CELL COUNT(AUTO) 4.42 MIL/uL (4.00-5.50); RED CELL DISTRIBUTION WIDTH 12.8 % (11.0-15.5); WHITE BLOOD COUNT (AUTO) 6.2 K/uL (4.8-10.8)
[2023-09-28 08:07] LABS: INR < 0.93 (0.85-1.15); PROTHROMBIN TIME 10.3 SEC (9.6-11.6)
[2023-09-28 08:09] LABS: ALBUMIN 3.6 g/dL (3.5-5.0); BILIRUBIN,TOTAL 0.2 mg/dL (0.2-1.0); CREATININE 0.6 mg/dL (0.5-1.5); PARTIAL THROMBOPLASTIN TIME 29.1 SEC (26.3-35.5); TOTAL PROTEIN, SERUM 7.8 g/dL (6.0-8.3)
[2023-09-28 08:53] LABS: B-TYPE NATRIURETIC PEPTIDE 37 pg/mL (0-100)
[2023-09-28 08:59] LABS: APPEARANCE,URINE CLEAR (CLEAR); BILIRUBIN,URINE NEGATIVE (NEGATIVE); COLOR,URINE COLORLESS (YELLOW); GLUCOSE, URINE (UA) >=1000 mg/dL (NEGATIVE); KETONES,URINE NEGATIVE (NEGATIVE); LEUKOCYTE ESTERASE ,URINE NEGATIVE Leu/uL (NEGATIVE); NITRATE,URINE NEGATIVE (NEGATIVE); PH,URINE 5.5 (5.0-8.0); PROTEIN,URINE 30 mg/dL (NEGATIVE); UROBILINOGEN,URINE 0.2 mg/dL (0.2-1.0)
[2023-09-28 09:14] LABS: ADD UA MICROSCOPIC YES; RBC,URINE 0-1 /HPF (0-1); SQUAMOUS EPITHELIAL CELL,UR RARE /HPF (0-2); WBC,URINE 0-1 /HPF (0-1)
[2023-09-28 10:02] LABS: SARS-CoV-2, RNA, NAAT POSITIVE SARS CoV-2 (NEGATIVE)
[2023-09-28 10:25] VITALS: BP 142/57; PULSE 86; RESP 18; O2SAT 99
[2023-09-28] MEDS ORDERED: NIRM1TAB PO (11:44)
[2023-09-28] MEDS ORDERED: BENZ-39 PO (11:48)
[2023-09-28] MEDS ORDERED: ALBUHFA IH (11:48)
[2023-09-28] MEDS ORDERED: BUDE180H IH (11:48)
== END 2023-09-28 12:18 | disposition home or self-care (01) ==
LOC: EDH 07:02
DX: U07.1 COVID-19 (principal); J06.9 Acute upper respiratory infection, unspecified; I10 Essential (primary) hypertension; E11.9 Type 2 diabetes mellitus without complications; E78.00 Pure hypercholesterolemia, unspecified; Z90.49 Acquired absence of other specified parts of digestive tract; Z90.710 Acquired absence of both cervix and uterus; Z79.82 Long term (current) use of aspirin; Z79.899 Other long term (current) drug therapy; Z98.890 Other specified postprocedural states
CPT/HCPCS: 36415; 71045; 80053; 81001; 82550; 83880; 84484; 85025; 85610; 85730; 87635; 93005

== ENCOUNTER 2024-02-21 23:21 | Emergency (ER) | payer MEDICAID ==
[~2024-02-21] VITALS: Ht 154.9 cm; Wt 69.9 kg
[~2024-02-21 23:21] MED LIST changes: -AEC81 PO; -ALBUHFA IH; +ASPI-1005 PO; -BACI30OI6 TP; -BENZ200C53 PO; -BROM118S48 PO; -CEPH500B PO; -CLON0.1T PO; -CYCL10TA16 PO; -DIPH1TAB PO; -HYOS0.124 SL; -IBUP-2070 PO; -INSLAN SQ; +INSU100V12 SQ; -KETO10 PO; -LISI10TA24 PO; +LISI2.5T13 PO; -LOPE2CAP PO; -MACR100 PO; +METO25TA3 PO; -MONT-39 PO; -NAPR-1192 PO; -ONDA-104 PO; -ONDA4TAB10 PO; -PANT40TA PO; -PANT40TA55 PO; -PHEN-847 PO; -SUCR1TAB28 PO; -TAMS-1 PO
[2024-02-21 23:54] LABS: BASOPHILS # (AUTO) 0.01 K/uL (0.00-0.20); BASOPHILS % (AUTO) 0.2 % (0.0-5.0); EOSINOPHILS # (AUTO) 0.09 K/uL (0.00-0.70); EOSINOPHILS % (AUTO) 1.8 % (0.0-8.0); IMMATURE GRANULOCYTE ABSOLUTE 0.02 K/uL (0-1); LYMPHOCYTES # (AUTO) 2.1 K/uL (1.0-4.8); LYMPHOCYTES % (AUTO) 43.1 % (21.0-51.0); MEAN CORPUSCULAR HEMOGLOBIN 25.9 pg (27.0-33.0); MEAN CORPUSCULAR HGB CONC 32.8 g/dL (32.0-36.0); MEAN CORPUSCULAR VOLUME 78.9 fL (79-99); MONOCYTES # (AUTO) 0.3 K/uL (0.1-1.0); MONOCYTES % (AUTO) 6.1 % (3.0-13.0); NEUTROPHILS # (AUTO) 2.4 K/uL (1.8-7.7); NEUTROPHILS % (AUTO) 48.4 % (40.0-77.0); PLATELET COUNT (AUTO) 202 K/uL (130-400); RED BLOOD CELL COUNT(AUTO) 4.56 MIL/uL (4.00-5.50); RED CELL DISTRIBUTION WIDTH 13.5 % (11.0-15.5); WHITE BLOOD COUNT (AUTO) 4.9 K/uL (4.8-10.8)
[2024-02-22 00:17] LABS: ALBUMIN 3.7 g/dL (3.5-5.0); CREATININE 0.9 mg/dL (0.5-1.0); POTASSIUM 4.4 mmol/L (3.5-5.1)
[2024-02-22 00:18] LABS: APPEARANCE,URINE CLEAR (CLEAR); BILIRUBIN,URINE NEGATIVE (NEGATIVE); COLOR,URINE COLORLESS (YELLOW); GLUCOSE, URINE (UA) >=1000 mg/dL (NEGATIVE); KETONES,URINE NEGATIVE (NEGATIVE); LEUKOCYTE ESTERASE ,URINE 25 Leu/uL (NEGATIVE); NITRATE,URINE NEGATIVE (NEGATIVE); OCCULT BLOOD,URINE NEGATIVE (NEGATIVE); PH,URINE 5.5 (5.0-8.0); PROTEIN,URINE 10 mg/dL (NEGATIVE); UROBILINOGEN,URINE 0.2 mg/dL (0.2-1.0)
[2024-02-22 00:19] LABS: BILIRUBIN,TOTAL 0.1 mg/dL (0.2-1.0); TOTAL PROTEIN, SERUM 7.7 g/dL (6.0-8.3)
[2024-02-22 00:19] LABS: ADD UA MICROSCOPIC YES
[2024-02-22 00:22] LABS: SQUAMOUS EPITHELIAL CELL,UR RARE /HPF (0-2)
[2024-02-22] MEDS: PANTOPRAZOLE 40 MG/VIAL IVP ONE (00:50)
[2024-02-22] MEDS: INSULIN HUMULIN R 100 UNIT/ML 3ML IV ONE (00:50)
[2024-02-22] MEDS: 0.9%NACL 1000ML 1,000 ML IV ONE (00:50)
[2024-02-22] MEDS: KETOROLAC 15MG/ML VIAL (15MG/ML) IV ONE (00:51)
[2024-02-22 01:59] VITALS: BP 135/64; PULSE 70; RESP 16; O2SAT 97
[2024-02-22] MEDS ORDERED: SENN8.6T32 PO (02:08)
== END 2024-02-22 02:44 | disposition home or self-care (01) ==
LOC: EDH 23:21
DX: R10.31 Right lower quadrant pain (principal); I10 Essential (primary) hypertension; E11.65 Type 2 diabetes mellitus with hyperglycemia; K59.00 Constipation, unspecified; N20.0 Calculus of kidney; E78.00 Pure hypercholesterolemia, unspecified; Z79.82 Long term (current) use of aspirin; Z79.84 Long term (current) use of oral hypoglycemic drugs; Z79.899 Other long term (current) drug therapy; Z88.5 Allergy status to narcotic agent; Z90.49 Acquired absence of other specified parts of digestive tract; Z90.710 Acquired absence of both cervix and uterus
CPT/HCPCS: 99285; 71045; 84484; 80053; 83690; 85025; 82948; 82010; 81001; 36415 ×2; 93005; 74176; 96374; 96375; 96361; J1815; J7030; J1885; S0164; C9113

== ENCOUNTER 2024-05-08 19:19 | Emergency (ER) | payer MEDICAID ==
[~2024-05-08] VITALS: Ht 154.9 cm; Wt 69.4 kg
[~2024-05-08 19:19] MED LIST changes: +SENN8.6T32 PO
[2024-05-08 19:57] LABS: BASOPHILS # (AUTO) 0.02 K/uL (0.00-0.20); BASOPHILS % (AUTO) 0.2 % (0.0-5.0); EOSINOPHILS # (AUTO) 0.06 K/uL (0.00-0.70); EOSINOPHILS % (AUTO) 0.7 % (0.0-8.0); HEMATOCRIT 33.9 % (36-48); IMMATURE GRANULOCYTE ABSOLUTE 0.03 K/uL (0-1); LYMPHOCYTES # (AUTO) 1.7 K/uL (1.0-4.8); LYMPHOCYTES % (AUTO) 19.4 % (21.0-51.0); MEAN CORPUSCULAR HEMOGLOBIN 25.9 pg (27.0-33.0); MEAN CORPUSCULAR HGB CONC 32.7 g/dL (32.0-36.0); MONOCYTES # (AUTO) 0.5 K/uL (0.1-1.0); MONOCYTES % (AUTO) 5.2 % (3.0-13.0); NEUTROPHILS # (AUTO) 6.4 K/uL (1.8-7.7); NEUTROPHILS % (AUTO) 74.2 % (40.0-77.0); PLATELET COUNT (AUTO) 174 K/uL (130-400); RED BLOOD CELL COUNT(AUTO) 4.29 MIL/uL (4.00-5.50); RED CELL DISTRIBUTION WIDTH 13.7 % (11.0-15.5); WHITE BLOOD COUNT (AUTO) 8.7 K/uL (4.8-10.8)
[2024-05-08 20:06] LABS: CREATININE 0.9 mg/dL (0.5-1.0); POTASSIUM 3.9 mmol/L (3.5-5.1)
[2024-05-08] MEDS: ONDANSETRON 4MG INJ IVP ONE (20:16)
[2024-05-08] MEDS: LACTATED RINGERS 1000ML 1,000 ML IV ONE (20:16)
[2024-05-08] MEDS: PANTOPRAZOLE 40 MG/VIAL IVP ONE (20:16)
[2024-05-08 20:18] LABS: ALBUMIN 3.3 g/dL (3.5-5.0); BILIRUBIN,DIRECT 0.1 mg/dL (0.0-0.3); BILIRUBIN,TOTAL 0.1 mg/dL (0.2-1.0); TOTAL PROTEIN, SERUM 6.8 g/dL (6.0-8.3)
[2024-05-08] MEDS ORDERED: IOHEXOL-350 75 ML VIAL IV ONE (21:10)
[2024-05-08 21:36] LABS: ADD UA MICROSCOPIC YES; APPEARANCE,URINE CLEAR (CLEAR); BILIRUBIN,URINE NEGATIVE (NEGATIVE); COLOR,URINE COLORLESS (YELLOW); GLUCOSE, URINE (UA) >=1000 mg/dL (NEGATIVE); KETONES,URINE NEGATIVE (NEGATIVE); LEUKOCYTE ESTERASE ,URINE NEGATIVE Leu/uL (NEGATIVE); NITRATE,URINE NEGATIVE (NEGATIVE); PH,URINE 5.5 (5.0-8.0); PROTEIN,URINE 20 mg/dL (NEGATIVE); UROBILINOGEN,URINE 0.2 mg/dL (0.2-1.0)
[2024-05-08 21:45] LABS: MUCUS,URINE RARE LPF (None Seen); RBC,URINE 0-1 /HPF (0-1); SQUAMOUS EPITHELIAL CELL,UR RARE /HPF (0-2); WBC,URINE 0-1 /HPF (0-1)
[2024-05-08] MEDS ORDERED: DICY10 PO (22:16)
[2024-05-08] MEDS ORDERED: METR375C2 PO (22:16)
[2024-05-08 22:25] VITALS: BP 159/67; PULSE 75; RESP 17; TEMP 98.5; O2SAT 96
== END 2024-05-08 22:26 | disposition home or self-care (01) ==
LOC: EDH 19:19
DX: K52.9 Noninfective gastroenteritis and colitis, unspecified (principal); E11.9 Type 2 diabetes mellitus without complications; E78.00 Pure hypercholesterolemia, unspecified; I10 Essential (primary) hypertension; Z79.82 Long term (current) use of aspirin; Z79.84 Long term (current) use of oral hypoglycemic drugs; Z79.899 Other long term (current) drug therapy; Z88.5 Allergy status to narcotic agent; Z90.49 Acquired absence of other specified parts of digestive tract; Z90.710 Acquired absence of both cervix and uterus; Z98.890 Other specified postprocedural states
CPT/HCPCS: 99285; 74177; 96374; 96375; 82550; 80076; 84484; 80048; 83690; 85025; 81001; 36415; 93005; J7120; J2405; J2470; Q9967

== ENCOUNTER 2024-05-17 18:11 | Emergency (ER) | payer MEDICAID ==
[~2024-05-17] VITALS: Ht 162.6 cm; Wt 68.5 kg
[~2024-05-17 18:11] MED LIST changes: +DICY10 PO; +METR375C2 PO
[2024-05-17 18:39] VITALS: TEMP 98.7
[2024-05-17] MEDS: NITROGLYCERIN 0.4 MG SL TAB SL PRN (18:39)
[2024-05-17 18:40] LABS: BASOPHILS # (AUTO) 0.02 K/uL (0.00-0.20); BASOPHILS % (AUTO) 0.4 % (0.0-5.0); EOSINOPHILS # (AUTO) 0.08 K/uL (0.00-0.70); EOSINOPHILS % (AUTO) 1.5 % (0.0-8.0); HEMATOCRIT 35.2 % (36-48); IMMATURE GRANULOCYTE ABSOLUTE 0.01 K/uL (0-1); LYMPHOCYTES # (AUTO) 1.8 K/uL (1.0-4.8); LYMPHOCYTES % (AUTO) 34.5 % (21.0-51.0); MEAN CORPUSCULAR HEMOGLOBIN 26.2 pg (27.0-33.0); MEAN CORPUSCULAR HGB CONC 33.5 g/dL (32.0-36.0); MEAN CORPUSCULAR VOLUME 78.2 fL (79-99); MONOCYTES # (AUTO) 0.3 K/uL (0.1-1.0); MONOCYTES % (AUTO) 6.2 % (3.0-13.0); NEUTROPHILS % (AUTO) 57.2 % (40.0-77.0); PLATELET COUNT (AUTO) 208 K/uL (130-400); RED CELL DISTRIBUTION WIDTH 13.5 % (11.0-15.5); WHITE BLOOD COUNT (AUTO) 5.3 K/uL (4.8-10.8)
[2024-05-17 18:48] LABS: CREATININE 0.8 mg/dL (0.5-1.0)
[2024-05-17 19:01] LABS: B-TYPE NATRIURETIC PEPTIDE 29 pg/mL (0-100)
[2024-05-17 19:50] LABS: APPEARANCE,URINE CLEAR (CLEAR); BILIRUBIN,URINE NEGATIVE (NEGATIVE); COLOR,URINE COLORLESS (YELLOW); GLUCOSE, URINE (UA) >=1000 mg/dL (NEGATIVE); KETONES,URINE NEGATIVE (NEGATIVE); LEUKOCYTE ESTERASE ,URINE NEGATIVE Leu/uL (NEGATIVE); NITRATE,URINE NEGATIVE (NEGATIVE); PROTEIN,URINE 20 mg/dL (NEGATIVE); UROBILINOGEN,URINE 0.2 mg/dL (0.2-1.0)
[2024-05-17 19:52] LABS: ADD UA MICROSCOPIC YES
[2024-05-17 19:53] LABS: RBC,URINE 0-1 /HPF (0-1)
[2024-05-17 22:23] VITALS: BP 158/68; PULSE 76; RESP 18; O2SAT 97
== END 2024-05-17 22:50 | disposition home or self-care (01) ==
LOC: EDH 18:11
DX: R07.89 Other chest pain (principal); I10 Essential (primary) hypertension; E11.9 Type 2 diabetes mellitus without complications; E78.00 Pure hypercholesterolemia, unspecified; Z79.82 Long term (current) use of aspirin; Z79.84 Long term (current) use of oral hypoglycemic drugs; Z79.899 Other long term (current) drug therapy; Z98.890 Other specified postprocedural states; Z88.5 Allergy status to narcotic agent
CPT/HCPCS: 36415; 71045; 80048; 81001; 82550; 83880; 84484; 85025; 93005

== ENCOUNTER → 2024-06-02 | Outpatient (CLI) | payer MEDICAID | END | disposition home or self-care (01) | LOC: SHCH 11:09 | PROVIDERS: ATTEND Internal Medicine Cardiovascular Disease | DX: I65.23 Occlusion and stenosis of bilateral carotid arteries (principal) | CPT/HCPCS: 93880 ==

== ENCOUNTER → 2024-06-02 | Outpatient (CLI) | payer MEDICAID ==
--- NOTE | 2024-06-03 10:52 | HMCSR ---
APPROVED REPORT EXAM: Two-dimensional and M-mode echocardiogram with Doppler and color Doppler. Study Details: Hx: HTN, DM, high cholesterol INDICATION ICD: G45.9 Transient cerebral ischemic attack, unspecified Contrast Details Indication: Rule out PFO Agent/Amount Used: Agitated Saline 2D Dimensions RVDd3.6 cmLVEF(%)68.1 (>50%)LVED Vol(simp.)58.3 mL IVSd0.9 (0.7-1.1cm)FS(%)38 %LVES Vol(simp.)23.7 mL LVDd4.0 (3.8-5.6cm)LA (2D)4.0 (1.6-4.0cm)LVEF(%, simp.)59 % PWd1.1 (0.7-1.1cm)Ao Root(2D)3.0 (2.0-3.7cm)LA ESV INDEX (4CH)24.70 mL/m2 IVSs1.3 cmLVOT diam2.1 (1.8-2.4cm)LA ESV INDEX (2CH)21.70 mL/m2 LVDs2.5 (2.5-4.0cm)LA ESV INDEX (BP)22.40 mL/m2 PWs1.2 cm Aortic Valve AoV VTI0.3 mAo Mean GR4.0 mmHgLVOT VTI0.21 m HARPREET (VMAX)2.4 cm2AVA (VTI) 2.4 cm2 Mitral Valve MV E Vmax76.2 cm/sDECEL Jqhf555 ms MV A Vmax81.5 cm/sP 1/2 T56 ms E/A ratio0.9MVA (PHT)3.9 cm2 TDI E/E' Ofavgi71.3E/E' Qcvukmc95.2 Medial E' Peak V7.40 cm/sLateral E' Peak V7.50 cm/s Pulmonary Valve PV VTI0.21 mPV Mean GR3 mmHg Tricuspid Valve TR Vmax1.7 m/sRAP (EST) 3 mcVuGQVH19.2 mmHg TR Peak GR11.2 mmHg Left Ventricle The left ventricle is normal size. There is normal LV segmental wall motion. There is normal left vicenta tricular wall thickness. LVEF is 60-65%. Stage I diastolic dysfunction. Right Ventricle The right ventricle is normal size. The right ventricular systolic function is normal. Atria The left atrium size is normal. Negative bubble study. No evidence of PFO by agitated saline. The rig ht atrium size is normal. Aortic Valve The aortic valve is trileaflet normal in structure. Left coronary annular calcification noted. No aor tic regurgitation is present. There is no aortic valvular stenosis. Mitral Valve The mitral valve is normal in structure. There is no mitral valve regurgitation noted. There is no mi tral valve stenosis. Tricuspid Valve The tricuspid valve is normal in structure. There is trace of tricuspid valve regurgitation noted. Pulmonic Valve The pulmonary valve is normal in structure. There is trace of pulmonic valvular regurgitation. Great Vessels The aortic root is normal in size. The IVC is normal in size and collapses >50% with inspiration. Pericardium There is no pericardial effusion. Other Information Quality : Fair Conclusion LVEF is 60-65%. There is normal LV segmental wall motion. Stage I diastolic dysfunction.
== END | disposition home or self-care (01) ==
LOC: RAH 13:37
PROVIDERS: ATTEND Internal Medicine Cardiovascular Disease
DX: I35.8 Other nonrheumatic aortic valve disorders (principal); I51.89 Other ill-defined heart diseases; G45.9 Transient cerebral ischemic attack, unspecified
CPT/HCPCS: 93306; 93880; A4216

== ENCOUNTER 2024-06-04 05:08 | Emergency (ER) | payer MEDICAID ==
[2024-06-04 05:26] LABS: BASOPHILS # (AUTO) 0.01 K/uL (0.00-0.20); BASOPHILS % (AUTO) 0.2 % (0.0-5.0); EOSINOPHILS # (AUTO) 0.08 K/uL (0.00-0.70); EOSINOPHILS % (AUTO) 1.5 % (0.0-8.0); HEMATOCRIT 36.9 % (36-48); IMMATURE GRANULOCYTE ABSOLUTE 0.02 K/uL (0-1); LYMPHOCYTES # (AUTO) 1.8 K/uL (1.0-4.8); LYMPHOCYTES % (AUTO) 33.7 % (21.0-51.0); MEAN CORPUSCULAR HEMOGLOBIN 26.3 pg (27.0-33.0); MEAN CORPUSCULAR HGB CONC 33.6 g/dL (32.0-36.0); MEAN CORPUSCULAR VOLUME 78.3 fL (79-99); MONOCYTES # (AUTO) 0.4 K/uL (0.1-1.0); MONOCYTES % (AUTO) 6.8 % (3.0-13.0); NEUTROPHILS # (AUTO) 3.1 K/uL (1.8-7.7); NEUTROPHILS % (AUTO) 57.4 % (40.0-77.0); PLATELET COUNT (AUTO) 178 K/uL (130-400); RED BLOOD CELL COUNT(AUTO) 4.71 MIL/uL (4.00-5.50); RED CELL DISTRIBUTION WIDTH 13.3 % (11.0-15.5); WHITE BLOOD COUNT (AUTO) 5.5 K/uL (4.8-10.8)
--- NOTE | 2024-06-04 05:36 | ERN ---
General Chief Complaint: Chest Pain Stated Complaint: CHEST PAIN, HIGH BLOOD PRESSURE Time Seen by MD: 05:13 Source: patient, EMS History of Present Illness Initial Comments Patient is a 59-year-old female coming in to be evaluated for headache that woke her up in the morning as well as chest pressure. Patient states that she has been seen here in the hospital two weeks ago for the same reason. Patient had a cardiac test performed but has not gotten the results. Patient states that she woke up she had pressure in her chest radiating to her left neck region and she took some Tylenol at her blood pressure medications she noticed her blood pressure was high. Allergies: Coded Allergies: morphine (Unverified Allergy, Unknown, 04/05/19) Home Meds Active Scripts Dicyclomine HCl (Bentyl) 10 Mg Cap, 10 MG PO BID PRN for colic for 3 Days, #10 CAP Prov:CATIE THOMASON MD 05/08/24 Metronidazole (Flagyl) 375 Mg Capsule, 375 MG PO BID for 7 Days, #14 CAP Prov:CATIE THOMASON MD 05/08/24 Sennosides (Senna) 8.6 Mg Tablet, 8.6 MG PO At bedtime for 30 Days, #30 TAB Prov:ORTIZ BARCENAS MD 02/22/24 Lisinopril (Lisinopril) 2.5 Mg Tablet, 2.5 MG PO DAILY for 30 Days, #30 TAB 1 Refill Prov:CAROL EL MD 01/02/24 Metoprolol Succinate (Toprol Xl) 25 Mg Tab.er.24h, 25 MG PO DAILY for 30 Days, #30 TAB 1 Refill Prov:CAROL EL MD 01/02/24 Aspirin (ASPIRIN 81MG CHEW TAB) 81 Mg Tab.chew, 81 MG PO DAILY for 30 Days, #30 TAB.CHEW 2 Refills Prov:CAROL EL MD 01/02/24 Reported Medications Insulin Detemir (Levemir) 100 Unit/Ml Vial, 28 UNIT SQ BIDMEALS, VIAL 01/01/24 Cetirizine HCl (Cetirizine HCl) 10 Mg Tablet, 10 MG PO DAILY, TAB 10/31/21 Sitagliptin Phosphate (Januvia) 100 Mg Tablet, 100 MG PO DAILY, TAB 01/07/20 Atorvastatin Calcium (LIPITOR) 40 Mg Tablet, 40 MG PO HS, TAB 01/07/20 Past Medical History Past Medical History: Diabetes-Type II, High Cholesterol, Hypertension Medical History Other: Right eye blindness, defective vision with left eye Past Surgical History: Appendectomy, Other, Surgical History Other: RIGHT OOPHRECTOMY, Family History Family History: Negative Social History Social History: Negative, Lives with family, Other Female( History) History: Not Applicable ROS Dictation CONSTITUTIONAL: No chills, no fever, no weakness, no diaphoresis, no malaise. HEAD/FACE: No signs of trauma. EENT: No eye pain, no blurred vision, no tearing, no double vision, no ear pain, no ear discharge, no nose pain, no nasal congestion, no throat pain, no throat swelling, no mouth pain. RESPIRATORY: No cough, no orthopnea, no SOB, no stridor, no wheezing. CARDIOVASCULAR: No chest pain, no edema, no palpitations, no syncope. GASTROINTESTINAL/ABDOMINAL: No abdominal pain, no constipation, no diarrhea, no nausea, no vomiting. GENITOURINARY: No abnormal discharge, no dysuria, no frequent urination, no hematuria. No complaints of pain in the genitals. MUSCULOSKELETAL: No back pain, no gout, no joint pain, no joint swelling, no muscle pain, no muscle stiffness, no neck pain. INTEGUMENTARY: No change in color, no change in hair/nails, no dryness, no lesion, no lumps, no rash. NEUROLOGICAL/PSYCH: No anxiety, not depressed, no emotional problem, no headache, no numbness, no pre-existing deficit, no history of seizures, no tremors, no weakness. HEMATOLOGIC/LYMPHATIC: Not anemic, no history of blood clots, no apparent bleeding, no bruising, glands not swollen. All Systems Negative, Except as Noted. Physical Exam Physical Exam Dictation VITAL SIGNS: Reviewed. GENERAL APPEARANCE: Alert, oriented x3, no acute distress, obese. HEAD AND FACE: Non-traumatic. EYES: PERRL, pink conjunctivas, eyelid no trauma, anterior chamber clear. EARS: Pinnas intact and no signs of trauma or erythema. Ear canals clear and no discharge. TMs no erythema. NOSE: No discharge, no bleeding. OROPHARYNX: Mouth normal, teeth no caries, tongue pink. Pharynx clear, no erythema. Tonsils no exudates, no abscesses noted. Mucous membrane moist. NECK: Supple, non-tender, no thyromegaly, no masses, no JVD, no bruits. BREAST: Deferred. CHEST: No tenderness, no crepitus, no paradoxical movement, no retractions. LUNGS: Clear, well-ventilated, symmetric, no rales, no wheezing, no rhonchi, no stridor, good breath sounds bilaterally. HEART: Regular rate, regular rhythm, no murmur, no gallops. VASCULAR: No peripheral edema. ABDOMEN: Soft, positive bowel sounds, nondistended, no guarding, nontender, no rebound, no masses no hepatomegaly, no splenomegaly, no Esteban's sign, no hernias. RECTAL: Deferred. GENITAL: Deferred. NEUROLOGICAL: Normal speech, gross motor function intact, gross sensory function intact. MUSCULOSKELETAL: Neck nontender, full range of motion, back nontender, full range of motion. EXTREMITIES: Nontender, full range of motion. SKIN: Color pink, dry, no turgor, no rash, no lacerations, no abrasions, no contusions. LYMPHATICS: Deferred. Results Laboratory and Microbiology Lab and Micro Result Laboratory Tests Test 06/04/24 05:18 06/04/24 05:44 06/04/24 06:22 06/04/24 06:24 White Blood Count 5.5 K/uL (4.8-10.8) Red Blood Count 4.71 MIL/uL (4.00-5.50) Hemoglobin 12.4 g/dL (12.0-16.0) Hematocrit 36.9 % (36-48) Mean Corpuscular Volume 78.3 fL (79-99) L Mean Corpuscular Hemoglobin 26.3 pg (27.0-33.0) L Mean Corpuscular Hemoglobin Concent 33.6 g/dL (32.0-36.0) Red Cell Distribution Width 13.3 % (11.0-15.5) Platelet Count 178 K/uL (130-400) Mean Platelet Volume 11.8 fL (7.5-10.5) H Immature Granulocyte % (Auto) 0.4 % (0-1) Neutrophils (%) (Auto) 57.4 % (40.0-77.0) Lymphocytes (%) (Auto) 33.7 % (21.0-51.0) Monocytes (%) (Auto) 6.8 % (3.0-13.0) Eosinophils (%) (Auto) 1.5 % (0.0-8.0) Basophils (%) (Auto) 0.2 % (0.0-5.0) Neutrophils # (Auto) 3.1 K/uL (1.8-7.7) Lymphocytes # (Auto) 1.8 K/uL (1.0-4.8) Monocytes # (Auto) 0.4 K/uL (0.1-1.0) Eosinophils # (Auto) 0.08 K/uL (0.00-0.70) Basophils # (Auto) 0.01 K/uL (0.00-0.20) Absolute Immature Granulocyte (auto 0.02 K/uL (0-1) Nucleated Red Blood Cells 0.0 % (0.0-0.19) Troponin I High Sensitivity 5 ng/L (4-50) 6 ng/L (4-50) B-Type Natriuretic Peptide 21 pg/mL (0-100) Troponin I < 0.05 ng/mL (0.00-0.05) Sodium Level 137 mmol/L (136-145) Potassium Level 4.1 mmol/L (3.5-5.1) Chloride Level 100 mmol/L (101-111) L Carbon Dioxide Level 31 mmol/L (21-32) Blood Urea Nitrogen 17 mg/dL (7-18) Creatinine 0.8 mg/dL (0.5-1.0) Glomerular Filtration Rate Calc 85 mL/min (>90) Random Glucose 302 mg/dL (70-105) H Total Calcium 9.6 mg/dL (8.5-10.1) Total Creatine Kinase 61 U/L (21-232) Urine Color COLORLESS (YELLOW) Urine Appearance CLEAR (CLEAR) Urine pH 6.5 (5.0-8.0) Urine Specific [place] 1.004 (1.001-1.031) Urine Protein 30 mg/dL (NEGATIVE) H Urine Glucose (UA) 500 mg/dL (NEGATIVE) H Urine Ketones NEGATIVE mg/dL (NEGATIVE) Urine Occult Blood +- (TRACE) (NEGATIVE) H Urine Nitrate NEGATIVE (NEGATIVE) Urine Bilirubin NEGATIVE mg/dL (NEGATIVE) Urine Urobilinogen 0.2 mg/dL (0.2-1.0) Urine Leukocyte Esterase NEGATIVE Jill/uL Urine RBC 0-1 /HPF (0-1) Urine WBC 2-5 /HPF (0-1) H Urine Bacteria RARE /HPF (None Seen) Labs Reviewed?: Yes EKG/XRAY/US/CT/MRI EKG Comment 06/04/2024 time 5:16 a.m. Ventricular rate [address] wave elevation or depression [place] 170 CT Scan Comment Institution : [facility] Accession No. : [id number] Patient : AMANDA APPLE Creator : Dictator : Territory Account Representative : Avid Editor : MARIS PIERCE Approver2 : Study : CT HEAD/BRAIN W/O CONTRAST Study Date : 06/04/2024 06:06:55 Report Date : [address] [address] [place] [address] IMAGING REPORT Signed PATIENT: AMBIKA PATEL V MR#: [id number] : 1965 SEX: F AGE: 59 LOCATION: [facility] ORDER 1 STATUS: [facility] REPORT#: [id number] SERVICE 0531 REASON: headache ORDERING PHYSICIAN: CATIE THOMASON MD PROCEDURE: HEAD WO - CT HEAD/BRAIN W/O CONTRAST CT HEAD/BRAIN W/O CONTRAST HISTORY: Headaches COMPARISON: 12/31/2023 TECHNIQUE: Multiple sequential axial images of the head were obtained from the base of the skull through vertex. Patient was not given contrast through intravenous route. FINDINGS: The ventricles and extraventricular CSF spaces are dilated consistent with cerebral atrophy. Nonspecific white matter changes seen. There is no midline shift, mass effect or herniation. No acute intracranial bleed is seen. Visualized portion of the paranasal sinuses are grossly within normal limits. Hyperdense material is seen in the posterior chamber of the right orbital globe unchanged. IMPRESSION: 1. No acute intracranial bleed is seen. 2. Atrophy with white matter changes. CT was performed with one or more following dose reduction techniques: automated exposure control, adjustment of the mA and kv according to patient's size, or use of a iterative reconstruction technique. DICTATED BY: MARIS PIERCE MD DATE: 06/04/24901 ELECTRONICALLY SIGNED BY: MARIS PIERCE MD DATE: 06/04/24910 [facility] MDM: Differential diagnosis: Rationale: Tests considered and ordered secondary to shared decision making include: Previous outside records reviewed: Old ER visits. Risk of complication and/or morbidity or mortality of patient management: None Medications-Per medication reconciliation Need for hospitalization: Patient does not meet criteria for hospitalization. Need for emergency major/minor surgery: No There are no social concerns with this patient. Prescription drug management Prescriptions will include symptomatic care Patient's prior external medical records from other ER visits were reviewed by me as indicated. Prior testing and results from previous visits were reviewed. Prior tests were taken into account with medical decision making and resource utilization, independent historian/historians were used to obtain complete medical history. I independently interpreted the test that were performed, results were reviewed by me and considered findings on radiology if ordered. Medical management and examination interpretation discussions were had by w ith other qualified healthcare professionals as indicated for the patient's care. ED Course Orders Procedure Category Date Status Time Cbc With Differential LAB 06/04/24 Complete 05:11 B-Type Natriuretic LAB 06/04/24 Complete Peptide 05:11 Troponin I High LAB 06/04/24 Complete Sensitivity 05:11 12 Lead Ekg Tracing- EKG 06/04/24 Resulted Technical 05:11 Chest 1vw RAD 06/04/24 Resulted 05:11 Troponin Poc Order LAB 06/04/24 Complete Only 05:11 Basic Metabolic Panel LAB 06/04/24 Complete 05:30 Creatine Kinase, Total LAB 06/04/24 Complete 05:30 Ct Head/Brain W/O CT 06/04/24 Resulted Contrast 05:31 Pantoprazole 40mg Inj PHA 06/04/24 Complete (Protonix 40mg Inj 06:00 Troponin I High LAB 06/04/24 Complete Sensitivity 06:17 Urinalysis Profile LAB 06/04/24 Complete 06:23 Ibuprofen (Motrin) PHA 06/04/24 Complete 09:24 Ibuprofen (Motrin) PHA 06/04/24 Complete 09:30 Pantoprazole 40mg Inj PHA 06/04/24 Complete (Protonix 40mg Inj 05:49 Current Medications Medications (Trade) Dose Ordered Sig/Ron Route PRN Reason Start Time Stop Time Status Last Admin Dose Admin Ibuprofen (moTRIN) 400 mg ONCE ONCE PO 06/04/24 09:30 06/04/24 09:31 DC 06/04/24 09:30 Ibuprofen (moTRIN) 400 mg STK-MED ONCE .ROUTE 06/04/24 09:24 06/04/24 09:24 DC Pantoprazole Sodium (PROTonix 40MG INJ) 40 mg ONCE ONCE IVP 06/04/24 06:00 06/04/24 06:02 DC 06/04/24 05:54 Pantoprazole Sodium (PROTonix 40MG INJ) 40 mg STK-MED ONCE .ROUTE 06/04/24 05:49 06/04/24 09:47 DC Vital Signs Date Time Temp Pulse Resp B/P (MAP) Pulse Ox O2 Delivery O2 Flow Rate FiO2 06/04/24 09:11 76 20 172/77 96 Room Air* 0 21 06/04/24 07:17 98.2 76 17 164/79 98 Room Air* 0 21 06/04/24 05:25 98.8 88 18 128/65 98 Room Air* [address] Dane Atwood. I assumed care of this patient at 7:[address] report I have reviewed the nursing notes, vital signs and available diagnostic studies. I have reviewed the charting completed by my colleague. At the time of discharge, the vital signs are within acceptable limits. Repeat examination: Patient reports the headache is gone and the chest discomfort is exacerbated by position changes and palpation on the chest wall. No focal neurologic symptoms are present and the patient is not experiencing chest pressure or shortness of breath. Vital signs have improved. Heart and lung examination are unremarkable and the chest wall palpation reproduces the pain the patient was experiencing. Patient has been able to take oral liquids. The discharge treatment plan includes continuation of usual medication. I have recommended she keep a close follow up with the patrol guard to review the results of the echo and carotid studies. I did give her some preliminary reports an encouraged her to call the patrol guard for follow-up and results. She also has a PCP follow up scheduled early next week and I recommended she discuss this musculoskeletal chest pain with her PCP as well Incidental findings discussed: Hyperglycemia Questions were invited and answered in layman's terms. I have emphasized my follow-up recommendations and reviewed ED return precautions. I have answered any questions in layman's terms. The patient understands that they will have to arrange for out-patient follow-up for recheck of today's condition. The patient is stable and appropriate for discharge from the ED. This dictation was prepared using [employer] voice recognition software. Occasional voice recognition errors may occur. When identified, these errors have been corrected. While every attempt is made to correct errors during dictation, errors may still exist. HEART Score Response (Comments) Value History: Low suspicion (0) 0 EKG: Repolarization changes 1 Age: 45-65yrs (+1) 1 Risk Factors: 3+ risk factors (+2) 2 Initial Troponin: Normal limit (0) 0 HEART Score Risk: Mod Risk for MACE (4-6) Total 4 DX & DISP Disposition: Discharge Decision to Admit Date: Jun 04, 2024 Decision to Admit Time: 10:15 Departure Impression: Primary Impression: Musculoskeletal chest wall pain Additional Impressions: Poorly-controlled hypertension, Poorly controlled diabetes mellitus, Noncritical left carotid stenosis Condition: Stable Additional Instructions: Continue your regular medications. Discuss your blood pressure control with your patrol guard as well as the results from your recent studies. Keep your appointment with your primary care physician to discuss your neck back and chest pain. Return to the emergency department for new or worsening symptoms Referrals: NEPTALI VICTORIA PA-C (PCP) Time of Disposition: 10:17 CATIE THOMASON MD Jun 04, 2024 05:36 DANE ATWOOD MD Jun 04, 2024 10:17
[2024-06-04] MEDS ORDERED: PANTOPrazole 40 MG/VIAL ONE (05:49)
[2024-06-04] MEDS: PANTOPrazole 40 MG/VIAL IVP ONE (05:54)
[2024-06-04 06:04] LABS: B-TYPE NATRIURETIC PEPTIDE 21 pg/mL (0-100)
[2024-06-04 06:43] LABS: APPEARANCE,URINE CLEAR (CLEAR); BILIRUBIN,URINE NEGATIVE (NEGATIVE); COLOR,URINE COLORLESS (YELLOW); GLUCOSE, URINE (UA) 500 mg/dL (NEGATIVE); KETONES,URINE NEGATIVE (NEGATIVE); LEUKOCYTE ESTERASE ,URINE NEGATIVE Leu/uL (NEGATIVE); NITRATE,URINE NEGATIVE (NEGATIVE); PH,URINE 6.5 (5.0-8.0); PROTEIN,URINE 30 mg/dL (NEGATIVE); UROBILINOGEN,URINE 0.2 mg/dL (0.2-1.0)
[2024-06-04 06:45] LABS: ADD UA MICROSCOPIC YES
[2024-06-04 06:46] LABS: BACTERIA,URINE RARE /HPF (None Seen); RBC,URINE 0-1 /HPF (0-1)
--- NOTE | 2024-06-04 06:48 | EKG ---
[facility] Test Date: 2024-06-04 Test Time: 05:16:27 Pat Name: AMBIKA PATEL Department: ED Room: Gender: F Food Stand Manager: [id number] : 1965 Requested By: ALEXEI CLAYTON Order Number: [id number] Reading MD: Kimberli Long Measurements Intervals [place] Rate: 88 P: 37 MI: 176 QRS: -10 QRSD: 98 T: 179 QT: 348 QTc: 422 Interpretive Statements Sinus rhythm LVH with secondary repolarization abnormality Compared to ECG 05/17/2024 18:10:02 Early repolarization now present Electronically Signed On 06-04-2024 07:23:36 CDT by Kimberli Long Please click the below link to view image of tracing.
[2024-06-04 06:51] LABS: CREATININE 0.8 mg/dL (0.5-1.0); POTASSIUM 4.1 mmol/L (3.5-5.1)
--- NOTE | 2024-06-04 07:20 | NUR ---
DENIES CHEST DISCOMFORT AT THIS TIME. PATIENT STATES WHEN CHEST DISCOMFORT ARISES IT IS DUE TO MOBILIZATION OF HEAD NECK OR SHOULDERS. DESCRIBES DISCOMFORT MORE MUSCULAR RELATED INCLUDING DISCOMFORT TO CHEST WALL UPON TOUCH.
--- NOTE | 2024-06-04 09:11 | HMCIMG ---
CT HEAD/BRAIN W/O CONTRAST HISTORY: Headaches COMPARISON: 12/31/2023 TECHNIQUE: Multiple sequential axial images of the head were obtained from the base of the skull through vertex. Patient was not given contrast through intravenous route. FINDINGS: The ventricles and extraventricular CSF spaces are dilated consistent with cerebral atrophy. Nonspecific white matter changes seen. There is no midline shift, mass effect or herniation. No acute intracranial bleed is seen. Visualized portion of the paranasal sinuses are grossly within normal limits. Hyperdense material is seen in the posterior chamber of the right orbital globe unchanged. IMPRESSION: 1. No acute intracranial bleed is seen. 2. Atrophy with white matter changes. CT was performed with one or more following dose reduction techniques: automated exposure control, adjustment of the mA and kv according to patient's size, or use of a iterative reconstruction technique.
--- NOTE | 2024-06-04 09:26 | HMCIMG ---
CHEST 1VW HISTORY: Chest pain COMPARISON: 05/17/2024 FINDINGS: A frontal projection of the chest was obtained. No acute pulmonary infiltrates is seen. The heart is normal in size. Degenerative changes are seen. No evidence of aortic calcification is seen. IMPRESSION: 1. No acute pulmonary infiltrate is seen.
[2024-06-04] MEDS: ibuPROFEN 400 MG TABLET PO ONE (09:30)
[2024-06-04] MEDS: ibuPROFEN 400 MG TABLET ONE (09:30)
[2024-06-04 10:27] VITALS: BP 166/78; PULSE 74; RESP 14; TEMP 98.1; O2SAT 96
== END 2024-06-04 10:28 | disposition home or self-care (01) ==
LOC: EDH 05:08
DX: R07.89 Other chest pain (principal); I10 Essential (primary) hypertension; E11.65 Type 2 diabetes mellitus with hyperglycemia; I65.22 Occlusion and stenosis of left carotid artery; E78.00 Pure hypercholesterolemia, unspecified; H54.40 Blindness, one eye, unspecified eye; Z88.5 Allergy status to narcotic agent; Z79.899 Other long term (current) drug therapy; Z79.82 Long term (current) use of aspirin; Z79.4 Long term (current) use of insulin; Z79.84 Long term (current) use of oral hypoglycemic drugs; Z90.49 Acquired absence of other specified parts of digestive tract; Z98.890 Other specified postprocedural states
CPT/HCPCS: 99285; 96374; 70450; 71045; 82550; 84484 ×3; 80048; 83880; 85025; 81001; 36415; 93005; J2470

== ENCOUNTER 2024-07-25 17:04 | Emergency (ER) | payer MEDICAID ==
[~2024-07-25] VITALS: Ht 154.9 cm; Wt 63.5 kg
--- NOTE | 2024-07-25 17:13 | ERN ---
ED Note History of Present Illness Stated Complaint: LEG PAIN Chief Complaint: Lower Extremity Pain/Injury Time Seen by MD: 17:08 Dictation: PATIENT IS A 59-YEAR-OLD DIABETIC FEMALE HERE WITH A ULCERATED AREA TO HER LEFT ANTERIOR GAMBLE TIBIAL AREA SHE HAS HAD FOR TWO WEEKS. NO FEVER NO CHILLS NO NAUSEA VOMITING. STATES SHE SAW HER PRIMARY CARE DOCTOR ON 07/23 AND HE STARTED HER ON KEFLEX 500 MG T.I.D.. SHE STATES IT HAS NOT GOTTEN ANY BETTER, CAME IN TODAY BECAUSE SHE WANTED FURTHER EVALUATION AND WORKUP. Allergies: Coded Allergies: morphine (Unverified Allergy, Unknown, 04/05/19) Home Meds Active Scripts Dicyclomine HCl (Bentyl) 10 Mg Cap, 10 MG PO BID PRN for colic for 3 Days, #10 CAP Prov:CATIE THOMASON MD 05/08/24 Metronidazole (Flagyl) 375 Mg Capsule, 375 MG PO BID for 7 Days, #14 CAP Prov:CATIE THOMASON MD 05/08/24 Sennosides (Senna) 8.6 Mg Tablet, 8.6 MG PO At bedtime for 30 Days, #30 TAB Prov:ORTIZ BARCENAS MD 02/22/24 Lisinopril (Lisinopril) 2.5 Mg Tablet, 2.5 MG PO DAILY for 30 Days, #30 TAB 1 Refill Prov:CAROL EL MD 01/02/24 Metoprolol Succinate (Toprol Xl) 25 Mg Tab.er.24h, 25 MG PO DAILY for 30 Days, #30 TAB 1 Refill Prov:CAROL EL MD 01/02/24 Aspirin (ASPIRIN 81MG CHEW TAB) 81 Mg Tab.chew, 81 MG PO DAILY for 30 Days, #30 TAB.CHEW 2 Refills Prov:CAROL EL MD 01/02/24 Reported Medications Insulin Detemir (Levemir) 100 Unit/Ml Vial, 28 UNIT SQ BIDMEALS, VIAL 01/01/24 Cetirizine HCl (Cetirizine HCl) 10 Mg Tablet, 10 MG PO DAILY, TAB 10/31/21 Sitagliptin Phosphate (Januvia) 100 Mg Tablet, 100 MG PO DAILY, TAB 01/07/20 Atorvastatin Calcium (LIPITOR) 40 Mg Tablet, 40 MG PO HS, TAB 01/07/20 Past Medical History Past Medical History: Diabetes-Type II, High Cholesterol, Hypertension Additional Past Medical Hx: Right eye blindness, defective vision with left eye Surgical History: Appendectomy, Other, Surgical History Other: RIGHT OOPHRECTOMY, PSYCH History: no pertinent psych hx Family History: Negative Social History: Negative, Lives with family, Other History: Not Applicable RN Note Reviewed/Agreed w/PFSH: Yes Review of System Dictation CONSTITUTIONAL: NEGATIVE EXCEPT FOR HPI HEAD/FACE: NEGATIVE EXCEPT FOR HPI EENT: NEGATIVE EXCEPT FOR HPI RESPIRATORY: NEGATIVE EXCEPT FOR HPI GASTROINTESTINAL/ABDOMINAL: NEGATIVE EXCEPT FOR HPI GENITOURINARY: NEGATIVE EXCEPT FOR HPI MUSCULOSKELETAL: NEGATIVE EXCEPT FOR HPI INTEGUMENTARY: NEGATIVE EXCEPT FOR HPI DIABETIC ULCER TO THE LEFT ANTERIOR GAMBLE TIBIAL AREA. MILD ERYTHEMA NEUROLOGICAL/PSYCH: NEGATIVE EXCEPT FOR HPI HEMATOLOGIC/LYMPHATIC: NEGATIVE EXCEPT FOR HPI ALL SYSTEMS NEGATIVE, EXCEPT NOTED ABOVE. 13 POINT REVIEW OF SYSTEMS ASSESSED AND ALL NEGATIVE EXCEPT FOR ABOVE. Initial Vital Sign VS Vital Signs Date Time Temp Pulse Resp B/P (MAP) Pulse Ox O2 Delivery O2 Flow Rate FiO2 07/25/24 17:07 98.2 86 18 194/80 98 07/25/24 17:26 Room Air* 0 21 Physical Exam Dictation VITAL SIGNS REVIEWED GENERAL APPEARANCE: ALERT, ORIENTED X 3, MODERATE ACUTE DISTRESS, WELL DEVELOPED, NOURISHED. HEAD AND FACE: NON-TRAUMATIC. EYES: PERRL, PINK CONJUNCTIVAS, EYELID NO TRAUMA, ANTERIOR CHAMBER WITH ARCUS SENILIS. EARS: PINNAS INTACT AND NO SIGNS OF TRAUMA OR ERYTHEMA EAR CANALS CLEAR AND NO DISCHARGE TM NO ERYTHEMA NOSE: NO DISCHARGE, NO BLEEDING. OROPHARYNX: MOUTH NORMAL, TONGUE PINK, PHARYNX CLEAR,NO ERYTHEMA, TONSILS NO EXUDATES, NO ABSCESSES NOTED, MUCOUS MEMBRANE MOIST NECK: SUPPLE, NON-TENDER, NO THYROMEGALY, NO MASSES, NO JVD, NO BRUITS BREAST:DEFERRED CHEST:NO TENDERNESS, NO CREPITUS, NO PARADOXICAL MOVEMENT, NO RETRACTIONS LUNGS:CLEAR, WELL-VENTILATED, SYMMETRIC, NO RALES, NO WHEEZING, NO RHONCHI, NO STRIDOR, GOOD BREATH SOUNDS BILATERALLY HEART: REGULAR RATE, REGULAR RHYTHM, NO MURMUR, NO GALLOPS VASCULAR: NO PERIPHERAL EDEMA, ABDOMEN: SOFT, POSITIVE BOWEL SOUNDS, NONDISTENDED, NO GUARDING, NONTENDER, NO REBOUND, NO MASSES NO RECTAL: DEFERRED GENITAL: DEFERRED NEUROLOGICAL: NORMAL SPEECH, MOTOR FUNCTION INTACT, SENSORY FUNCTION INTACT MUSCULOSKELETAL: NECK NONTENDER, FULL RANGE OF MOTION, BACK NONTENDER, FULL RANGE OF MOTION, EXTREMITIES: NONTENDER, FULL RANGE OF MOTION SKIN: COLOR PINK1 X 1 CM ULCER TO THE LEFT ANTERIOR TIBIAL AREA WITH SURROUNDING ERYTHEMA. NO DRAINAGE WOUND BED IS DRY. NO CALF TENDERNESS LYMPHATIC: DEFERRED Results (Laboratory/Radiology) Laboratory/Radiology Laboratory Tests Test 07/25/24 17:10 07/25/24 19:30 07/25/24 20:39 White Blood Count 5.4 K/uL (4.8-10.8) Red Blood Count 4.96 MIL/uL (4.00-5.50) Hemoglobin 13.1 g/dL (12.0-16.0) Hematocrit 39.9 % (36-48) Mean Corpuscular Volume 80.4 fL (79-99) Mean Corpuscular Hemoglobin 26.4 pg (27.0-33.0) L Mean Corpuscular Hemoglobin Concent 32.8 g/dL (32.0-36.0) Red Cell Distribution Width 13.7 % (11.0-15.5) Platelet Count 222 K/uL (130-400) Mean Platelet Volume 11.4 fL (7.5-10.5) H Immature Granulocyte % (Auto) 0.2 % (0-1) Neutrophils (%) (Auto) 56.4 % (40.0-77.0) Lymphocytes (%) (Auto) 35.4 % (21.0-51.0) Monocytes (%) (Auto) 6.5 % (3.0-13.0) Eosinophils (%) (Auto) 1.3 % (0.0-8.0) Basophils (%) (Auto) 0.2 % (0.0-5.0) Neutrophils # (Auto) 3.0 K/uL (1.8-7.7) Lymphocytes # (Auto) 1.9 K/uL (1.0-4.8) Monocytes # (Auto) 0.4 K/uL (0.1-1.0) Eosinophils # (Auto) 0.07 K/uL (0.00-0.70) Basophils # (Auto) 0.01 K/uL (0.00-0.20) Absolute Immature Granulocyte (auto 0.01 K/uL (0-1) Nucleated Red Blood Cells 0.0 % (0.0-0.19) Sodium Level 137 mmol/L (136-145) Potassium Level 3.9 mmol/L (3.5-5.1) Chloride Level 100 mmol/L (101-111) L Carbon Dioxide Level 27 mmol/L (21-32) Blood Urea Nitrogen 27 mg/dL (7-18) H Creatinine 1.3 mg/dL (0.5-1.0) H Glomerular Filtration Rate Calc 47 mL/min (>90) Random Glucose 443 mg/dL (70-105) *H Lactic Acid Level 1.3 mmol/L (0.8-2.5) Total Calcium 9.3 mg/dL (8.5-10.1) Whole Blood Glucose 391 MG/DL (70-110) H 261 MG/DL (70-110) H Labs Reviewed?: Yes ED Course ED Course Orders Procedure Category Date Status Time Blood Cult DUONG 07/25/24 In Process 17:08 Lactic Acid LAB 07/25/24 Complete 17:08 Cbc With Differential LAB 07/25/24 Complete 17:08 Basic Metabolic Panel LAB 07/25/24 Complete 17:08 Tibia/Fibula 2vws Lt RAD 07/25/24 Resulted 17:08 Ibuprofen 600 Mg PHA 07/25/24 Complete Tablet (Motrin) 17:30 0.9%Nacl 1000ml (Ns PHA 07/25/24 In Process 1000ml) 18:30 Insulin Regular, PHA 07/25/24 In Process Human 3ml (Humulin R 18:30 Bedside Glucose CPOE 07/25/24 Transmitted Fingerstick 19:22 Insulin Regular, PHA 07/25/24 Complete Human 3ml (Humulin R 20:00 Bedside Glucose CPOE 07/25/24 Transmitted Fingerstick 20:33 Current Medications Medications (Trade) Dose Ordered Sig/Ron Route PRN Reason Start Time Stop Time Status Last Admin Dose Admin Ibuprofen (moTRIN) 600 mg ONCE ONCE PO 07/25/24 17:30 07/25/24 17:31 DC 07/25/24 17:25 Insulin Human Regular (humuLIN R 100 UNIT/ML 3ML) 15 unit ONCE IV 07/25/24 18:30 07/25/24 23:59 07/25/24 18:58 Insulin Human Regular (humuLIN R 100 UNIT/ML 3ML) 15 unit ONCE ONCE IV 07/25/24 20:00 07/25/24 20:01 DC 07/25/24 20:00 Sodium Chloride 1,905 ml @ 635 mls/hr ONCE IV 07/25/24 18:30 07/26/24 18:29 07/25/24 18:57 Vital Signs Date Time Temp Pulse Resp B/P (MAP) Pulse Ox O2 Delivery O2 Flow Rate FiO2 07/25/24 20:27 97.0 78 20 157/74 98 Room Air* 0 21 07/25/24 19:05 97.2 81 18 161/80 98 Room Air* 0 21 07/25/24 17:26 97.7 81 20 176/72 98 Room Air* 0 21 07/25/24 17:07 98.2 86 18 194/80 98 2045, repeat blood sugar 261 WBCs 5.4 we will discharge patient home with a uncontrolled diabetes and leg ulcer told to continue her medications as directed and see her doctor for follow up. Medical Decision Making MDM Medical discharge making based on basic labs and x-ray WBCs 5.4 Patient had uncontrolled diabetes states she did not take her diabetic meds this morning and ate at [employer] and then [employer]. Repeat blood sugars 261 Patient states she still is going to take her diabetic medications when she gets home. She was encouraged to take them as directed, continue the antibiotics as directed until gone DX & DISP Disposition: Discharge Departure Impression: Primary Impression: Diabetic leg ulcer Additional Impressions: Uncontrolled diabetes mellitus, Dehydration Condition: Stable Additional Instructions: Follow-up with primary care provider in 1 to 2 days. Take medications as directed here in the emergency room. Okay to continue home medications unless otherwise discussed during your visit in the emergency room today. Return to your nearest emergency room if symptoms worsen or if there is no improvement. Call 911 if you need immediate assistance. Take Tylenol or Motrin [id number] as needed and if no contraindications are present. Increase oral hydration. A wound culture or urine culture was ordered here in the emergency room department please follow-up with primary care provider and advise them to get repeat ports from our facility. If you had any Pavan wrap/splints that were applied here, please do not remove them until you see your primary care or specialty. Continue antibiotics as directed until gone, take your diabetic medications as directed by your doctor. Increase your water intake. And see your primary care doctor for follow up. Referrals: NEPTALI VICTORIA PA-C (PCP) LEONID MUNOZ NP Jul 25, 2024 17:13
[2024-07-25] MEDS: ibuPROFEN 600 MG TABLET PO ONE (17:25)
[2024-07-25 17:29] LABS: BASOPHILS # (AUTO) 0.01 K/uL (0.00-0.20); BASOPHILS % (AUTO) 0.2 % (0.0-5.0); EOSINOPHILS # (AUTO) 0.07 K/uL (0.00-0.70); EOSINOPHILS % (AUTO) 1.3 % (0.0-8.0); HEMATOCRIT 39.9 % (36-48); IMMATURE GRANULOCYTE ABSOLUTE 0.01 K/uL (0-1); LYMPHOCYTES # (AUTO) 1.9 K/uL (1.0-4.8); LYMPHOCYTES % (AUTO) 35.4 % (21.0-51.0); MEAN CORPUSCULAR HEMOGLOBIN 26.4 pg (27.0-33.0); MEAN CORPUSCULAR HGB CONC 32.8 g/dL (32.0-36.0); MEAN CORPUSCULAR VOLUME 80.4 fL (79-99); MONOCYTES # (AUTO) 0.4 K/uL (0.1-1.0); MONOCYTES % (AUTO) 6.5 % (3.0-13.0); NEUTROPHILS % (AUTO) 56.4 % (40.0-77.0); PLATELET COUNT (AUTO) 222 K/uL (130-400); RED BLOOD CELL COUNT(AUTO) 4.96 MIL/uL (4.00-5.50); RED CELL DISTRIBUTION WIDTH 13.7 % (11.0-15.5); WHITE BLOOD COUNT (AUTO) 5.4 K/uL (4.8-10.8)
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
[2024-07-25 17:52] LABS: CREATININE 1.3 mg/dL (0.5-1.0); POTASSIUM 3.9 mmol/L (3.5-5.1)
--- NOTE | 2024-07-25 18:07 | HMCIMG ---
TIBIA/FIBULA 2VWS LT CLINICAL HISTORY: ANTERIOR LEFT TIBIAL DIABETIC ULCER WITH ERYTHEMA COMPARISON: None TECHNIQUE: AP and lateral images were obtained. FINDINGS: No obvious fracture or dislocation. No joint effusion. The soft tissues appear unremarkable. No radiopaque foreign bodies. IMPRESSION: No acute findings.
[2024-07-25] MEDS: 0.9%NACL 1000ML 1,905 ML IV SCH (18:57)
[2024-07-25] MEDS: INSULIN humuLIN R 100 UNIT/ML 3ML IV SCH (18:58)
[2024-07-25] MEDS: INSULIN humuLIN R 100 UNIT/ML 3ML IV ONE (20:00)
[2024-07-25 20:27] VITALS: BP 157/74; PULSE 78; RESP 20; TEMP 97; O2SAT 98
== END 2024-07-25 21:19 | disposition home or self-care (01) ==
LOC: EDH 17:04
DX: E11.622 Type 2 diabetes mellitus with other skin ulcer (principal); L97.829 Non-pressure chronic ulcer of other part of left lower leg with unspecified severity; E11.65 Type 2 diabetes mellitus with hyperglycemia; E86.0 Dehydration; E78.00 Pure hypercholesterolemia, unspecified; I10 Essential (primary) hypertension; Z79.82 Long term (current) use of aspirin; Z79.84 Long term (current) use of oral hypoglycemic drugs; Z79.899 Other long term (current) drug therapy; Z88.5 Allergy status to narcotic agent; Z90.49 Acquired absence of other specified parts of digestive tract; Z98.890 Other specified postprocedural states
CPT/HCPCS: 99284; 96374; 96361; 80048; 85025; 87040 ×2; 82948 ×2; 83605; 36415; 73590; 96376; J1815 ×2; J7030

== ENCOUNTER 2024-10-25 00:30 | Emergency (ER) | payer MEDICAID ==
[~2024-10-25] VITALS: Ht 154.9 cm; Wt 66.2 kg
[2024-10-25] MEDS: ondanSETRON 4MG INJ IVP ONE (00:55)
[2024-10-25] MEDS: 0.9%NACL 1000ML 1,000 ML IV SCH (00:55)
--- NOTE | 2024-10-25 00:56 | ERN ---
General Chief Complaint: Abdominal Pain Stated Complaint: C/O ABD PAIN RADIATING TO BACK/W/UPPER BACK PAIN Time Seen by MD: 00:32 History of Present Illness Initial Comments Patient comes in with complaint of right mid and lower abdominal pain for the last two days. She had about five episodes lasting about 15 minutes each. Some nausea. No vomiting or diarrhea. No dysuria. Patient has had some abdominal pain in the past although she states they were different etiologies one she had a kidney stone when she was constipated. Patient has had multiple ultrasounds of her gallbladder that have all been unremarkable in the past. Patient reports pain to the right lower quadrant. Patient is status post a remote appendectomy. Allergies: Coded Allergies: morphine (Unverified Allergy, Unknown, 04/05/19) Home Meds Active Scripts Dicyclomine HCl (Bentyl) 10 Mg Cap, 10 MG PO BID PRN for colic for 3 Days, #10 CAP Prov:CATIE THOMASON MD 05/08/24 Metronidazole (Flagyl) 375 Mg Capsule, 375 MG PO BID for 7 Days, #14 CAP Prov:CATIE THOMASON MD 05/08/24 Sennosides (Senna) 8.6 Mg Tablet, 8.6 MG PO At bedtime for 30 Days, #30 TAB Prov:ORTIZ BARCENAS MD 02/22/24 Lisinopril (Lisinopril) 2.5 Mg Tablet, 2.5 MG PO DAILY for 30 Days, #30 TAB 1 Refill Prov:CAROL EL MD 01/02/24 Metoprolol Succinate (Toprol Xl) 25 Mg Tab.er.24h, 25 MG PO DAILY for 30 Days, #30 TAB 1 Refill Prov:CAROL EL MD 01/02/24 Aspirin (ASPIRIN 81MG CHEW TAB) 81 Mg Tab.chew, 81 MG PO DAILY for 30 Days, #30 TAB.CHEW 2 Refills Prov:CAROL EL MD 01/02/24 Reported Medications Insulin Detemir (Levemir) 100 Unit/Ml Vial, 28 UNIT SQ BIDMEALS, VIAL 01/01/24 Cetirizine HCl (Cetirizine HCl) 10 Mg Tablet, 10 MG PO DAILY, TAB 10/31/21 Sitagliptin Phosphate (Januvia) 100 Mg Tablet, 100 MG PO DAILY, TAB 01/07/20 Atorvastatin Calcium (LIPITOR) 40 Mg Tablet, 40 MG PO HS, TAB 01/07/20 Past Medical History Past Medical History: Diabetes-Type II, High Cholesterol, Hypertension, Other Medical History Other: HX OF GASTRITIS Past Surgical History: Appendectomy, Surgical History Other: RIGHT OOPHRECTOMY, Family History Family History: Negative Social History Social History: Negative, Lives with family, Other Female( History) History: Not Applicable ROS Dictation Ten systems reviewed and negative except as noted in HPI Physical Exam Physical Exam Dictation GEN: non toxic, NAD HEENT: atrumatic, PERRL, EOMI, conjunctivae normal NECK: Soft supple nontender Heart RRR, no murmurs Chest: No deformity Lungs: Lungs clear to auscultation Ab: Soft nondistended. Some localized discomfort in the right quadrant without gross peritonitis or rebound. Back: No midline step-offs. No gross deformity. No CVA tenderness : m/s: Moving all four extremities. No gross deformity Neuro: CN 2-12 intact. Moving all four extremities. Psych: Cooperative Results Laboratory and Microbiology Lab and Micro Result Laboratory Tests Test 10/25/24 00:50 10/25/24 00:51 Urine Color COLORLESS (YELLOW) Urine Appearance CLEAR (CLEAR) Urine pH 6.0 (5.0-8.0) Urine Specific [place] 1.003 (1.001-1.031) Urine Protein NEGATIVE mg/dL (NEGATIVE) Urine Glucose (UA) >=1000 mg/dL (NEGATIVE) H Urine Ketones NEGATIVE mg/dL (NEGATIVE) Urine Occult Blood NEGATIVE (NEGATIVE) Urine Nitrate NEGATIVE (NEGATIVE) Urine Bilirubin NEGATIVE mg/dL (NEGATIVE) Urine Urobilinogen 0.2 mg/dL (0.2-1.0) Urine Leukocyte Esterase NEGATIVE Jill/uL Urine RBC None /HPF (0-1) Urine WBC 0-1 /HPF (0-1) Urine Squamous Epithelial Cells RARE /HPF (0-2) Urine Bacteria RARE /HPF (None Seen) White Blood Count 5.8 K/uL (4.8-10.8) Red Blood Count 5.20 MIL/uL (4.00-5.50) Hemoglobin 13.5 g/dL (12.0-16.0) Hematocrit 41.4 % (36-48) Mean Corpuscular Volume 79.6 fL (79-99) Mean Corpuscular Hemoglobin 26.0 pg (27.0-33.0) L Mean Corpuscular Hemoglobin Concent 32.6 g/dL (32.0-36.0) Red Cell Distribution Width 14.0 % (11.0-15.5) Platelet Count 182 K/uL (130-400) Mean Platelet Volume 11.2 fL (7.5-10.5) H Immature Granulocyte % (Auto) 0.2 % (0-1) Neutrophils (%) (Auto) 45.3 % (40.0-77.0) Lymphocytes (%) (Auto) 46.4 % (21.0-51.0) Monocytes (%) (Auto) 6.4 % (3.0-13.0) Eosinophils (%) (Auto) 1.4 % (0.0-8.0) Basophils (%) (Auto) 0.3 % (0.0-5.0) Neutrophils # (Auto) 2.6 K/uL (1.8-7.7) Lymphocytes # (Auto) 2.7 K/uL (1.0-4.8) Monocytes # (Auto) 0.4 K/uL (0.1-1.0) Eosinophils # (Auto) 0.08 K/uL (0.00-0.70) Basophils # (Auto) 0.02 K/uL (0.00-0.20) Absolute Immature Granulocyte (auto 0.01 K/uL (0-1) Nucleated Red Blood Cells 0.0 % (0.0-0.19) Sodium Level 136 mmol/L (136-145) Potassium Level 3.7 mmol/L (3.5-5.1) Chloride Level 101 mmol/L (101-111) Carbon Dioxide Level 30 mmol/L (21-32) Blood Urea Nitrogen 22 mg/dL (7-18) H Creatinine 0.7 mg/dL (0.5-1.0) Glomerular Filtration Rate Calc 100 mL/min (>90) Random Glucose 227 mg/dL (70-105) H Total Calcium 9.4 mg/dL (8.5-10.1) Total Bilirubin 0.2 mg/dL (0.2-1.0) Aspartate Amino Transf (AST/SGOT) 9 U/L (10-37) L Alanine Aminotransferase (ALT/SGPT) 16 U/L (12-78) Alkaline Phosphatase 96 U/L (50-136) Total Protein 8.0 g/dL (6.0-8.3) Albumin 4.1 g/dL (3.5-5.0) Amylase Level 41 U/L (25-115) Lipase 45 U/L (16-77) Labs Reviewed?: Yes EKG/XRAY/US/CT/MRI CT Scan Comment Statrad read: No acute findings within the abdomen or pelvis to explain the patient's symptoms MDM Multiple differentials considered. We will do labs. CT abdomen pelvis. Etiology of the patient's symptom is unclear after evaluation. Labs reviewed. CT abdomen and pelvis also unremarkable and unrevealing. Patient appears well. Patient discharged instructions to follow with primary care physician. Return for worsening symptoms. ED Course Orders Procedure Category Date Status Time Vital Signs Per CPOE 10/25/24 Transmitted Routine 00:42 Saline Lock Iv CPOE 10/25/24 Transmitted 00:42 Cbc With Differential LAB 10/25/24 Complete 00:42 Comprehensive LAB 10/25/24 Complete Metabolic Panel 00:42 Lipase LAB 10/25/24 Complete 00:42 Amylase LAB 10/25/24 Complete 00:42 Urinalysis Profile LAB 10/25/24 Complete 00:42 0.9%Nacl 1000ml (Ns PHA 10/25/24 Complete 1000ml) 01:00 Ondansetron 4mg Inj PHA 10/25/24 Complete (Zofran 4mg Inj) 01:00 Ct Abdomen/Pelvis CT 10/25/24 Taken W/Contrast 00:48 Iohexol (Omnipaque) PHA 10/25/24 Complete 01:21 Ketorolac PHA 10/25/24 Complete Tromethamine 15mg/Ml 02:30 Current Medications Medications (Trade) Dose Ordered Sig/Ron Route PRN Reason Start Time Stop Time Status Last Admin Dose Admin Iohexol (Omnipaque) 75 ml STK-MED ONCE IV 10/25/24 01:21 10/25/24 01:26 DC Ketorolac Tromethamine (toRADol) 15 mg ONCE ONCE IV 10/25/24 02:30 10/25/24 02:31 DC 10/25/24 02:23 Ondansetron HCl (zoFRAN 4MG INJ) 4 mg ONCE ONCE IVP 10/25/24 01:00 10/25/24 01:01 DC 10/25/24 00:55 Sodium Chloride 1,000 ml @ 999 mls/hr Q1H1M IV 10/25/24 01:00 10/25/24 02:38 DC 10/25/24 00:55 Vital Signs Date Time Temp Pulse Resp B/P (MAP) Pulse Ox O2 Delivery O2 Flow Rate FiO2 10/25/24 03:44 18 155/76 98 Room Air* 0 21 10/25/24 02:21 74 18 180/73 98 Room Air* 0 21 10/25/24 01:02 70 18 176/78 99 Room Air* 0 21 10/25/24 00:32 97.9 85 20 185/85 100 Room Air DX & DISP Disposition: Discharge Departure Impression: Primary Impression: Nonspecific abdominal pain Condition: Stable Additional Instructions: Follow up with primary care physician. Return for any worsening symptoms or other concerns Referrals: NEPTALI VICTORIA PA-C (PCP) HUNTER REYES MD Oct 25, 2024 00:56
[2024-10-25 01:03] LABS: BASOPHILS # (AUTO) 0.02 K/uL (0.00-0.20); BASOPHILS % (AUTO) 0.3 % (0.0-5.0); EOSINOPHILS # (AUTO) 0.08 K/uL (0.00-0.70); EOSINOPHILS % (AUTO) 1.4 % (0.0-8.0); HEMATOCRIT 41.4 % (36-48); IMMATURE GRANULOCYTE ABSOLUTE 0.01 K/uL (0-1); LYMPHOCYTES # (AUTO) 2.7 K/uL (1.0-4.8); LYMPHOCYTES % (AUTO) 46.4 % (21.0-51.0); MEAN CORPUSCULAR HGB CONC 32.6 g/dL (32.0-36.0); MEAN CORPUSCULAR VOLUME 79.6 fL (79-99); MONOCYTES # (AUTO) 0.4 K/uL (0.1-1.0); MONOCYTES % (AUTO) 6.4 % (3.0-13.0); NEUTROPHILS # (AUTO) 2.6 K/uL (1.8-7.7); NEUTROPHILS % (AUTO) 45.3 % (40.0-77.0); PLATELET COUNT (AUTO) 182 K/uL (130-400); WHITE BLOOD COUNT (AUTO) 5.8 K/uL (4.8-10.8)
[2024-10-25 01:12] LABS: ADD UA MICROSCOPIC YES; APPEARANCE,URINE CLEAR (CLEAR); BILIRUBIN,URINE NEGATIVE (NEGATIVE); COLOR,URINE COLORLESS (YELLOW); GLUCOSE, URINE (UA) >=1000 mg/dL (NEGATIVE); KETONES,URINE NEGATIVE (NEGATIVE); LEUKOCYTE ESTERASE ,URINE NEGATIVE Leu/uL (NEGATIVE); NITRATE,URINE NEGATIVE (NEGATIVE); OCCULT BLOOD,URINE NEGATIVE (NEGATIVE); PROTEIN,URINE NEGATIVE (NEGATIVE); UROBILINOGEN,URINE 0.2 mg/dL (0.2-1.0)
[2024-10-25 01:14] LABS: BACTERIA,URINE RARE /HPF (None Seen); SQUAMOUS EPITHELIAL CELL,UR RARE /HPF (0-2); WBC,URINE 0-1 /HPF (0-1)
[2024-10-25 01:19] LABS: CREATININE 0.7 mg/dL (0.5-1.0); POTASSIUM 3.7 mmol/L (3.5-5.1)
[2024-10-25] MEDS ORDERED: IOHEXOL-350 75 ML VIAL IV ONE (01:21)
[2024-10-25 01:23] LABS: ALBUMIN 4.1 g/dL (3.5-5.0); BILIRUBIN,TOTAL 0.2 mg/dL (0.2-1.0)
[2024-10-25] MEDS: ketOROlac 15MG/ML VIAL (15MG/ML) IV ONE (02:23)
[2024-10-25 05:00] VITALS: BP 130/59; PULSE 73; RESP 18; TEMP 98.3; O2SAT 100
--- NOTE | 2024-10-25 08:21 | HMCIMG ---
CT ABDOMEN/PELVIS W/CONTRAST REASON: right ab pain COMPARISON: 05/08/2024 TECHNIQUE: Images are obtained from lung bases through the symphysis pubis following IV contrast, 75 cc Omnipaque 350. FINDINGS: Lung bases are clear. There are no focal liver lesions. There are normal-appearing kidneys.. Spleen and pancreas appear unremarkable. The gallbladder appears normal as well. Bowel loops appear unremarkable. There has been a previous appendectomy. There is no evidence of free fluid or intraperitoneal air. There are no focal fluid collections. Aorta and retroperitoneum appear normal as do pelvic soft tissue structures. The anterior abdominal wall is intact. Osseous structures appear unremarkable. IMPRESSION: 1. Negative postcontrast CT abdomen and pelvis. CT was performed with one or more following dose reduction techniques: automated exposure control, adjustment of the mA and kv according to patient's size, or use of a iterative reconstruction technique.
== END 2024-10-25 05:10 | disposition home or self-care (01) ==
LOC: EDH 00:30
DX: R10.31 Right lower quadrant pain (principal); E11.9 Type 2 diabetes mellitus without complications; E78.00 Pure hypercholesterolemia, unspecified; I10 Essential (primary) hypertension; Z79.82 Long term (current) use of aspirin; Z79.84 Long term (current) use of oral hypoglycemic drugs; Z79.899 Other long term (current) drug therapy; Z87.19 Personal history of other diseases of the digestive system; Z88.5 Allergy status to narcotic agent; Z90.49 Acquired absence of other specified parts of digestive tract
CPT/HCPCS: 99285; 74177; 96374; 96375; 82150; 80053; 83690; 85025; 81001; 36415; J1885; J7030; J2405; Q9967

== ENCOUNTER 2024-12-23 14:37 | Emergency (ER) | payer OTHER, MEDICAID ==
[~2024-12-23] VITALS: Ht 154.9 cm; Wt 65.8 kg
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
[2024-12-23] MEDS: acetaMINOPHEN 500 MG TABLET PO STA (18:07)
[2024-12-23 18:09] VITALS: BP 124/74; PULSE 82; RESP 16; TEMP 98.1; O2SAT 100
== END 2024-12-23 18:10 | disposition home or self-care (01) ==
LOC: EDH 14:37
DX: R51.9 Headache, unspecified (principal); E11.9 Type 2 diabetes mellitus without complications; E78.00 Pure hypercholesterolemia, unspecified; I10 Essential (primary) hypertension; Z79.82 Long term (current) use of aspirin; Z79.84 Long term (current) use of oral hypoglycemic drugs; Z79.899 Other long term (current) drug therapy; Z88.5 Allergy status to narcotic agent; Z90.49 Acquired absence of other specified parts of digestive tract; V89.2XXA Person injured in unspecified motor-vehicle accident, traffic, initial encounter; Y93.89 Activity, other specified; Y92.488 Other paved roadways as the place of occurrence of the external cause; Y99.8 Other external cause status
CPT/HCPCS: 70450; 99284

== ENCOUNTER 2025-04-29 12:21 | Emergency (ER) | payer MEDICAID ==
[~2025-04-29] VITALS: Ht 154.9 cm; Wt 68.9 kg
[2025-04-29 12:51] LABS: IMMATURE GRANULOCYTE ABSOLUTE 0.02 K/uL (0-1); NUCLEATED RED BLOOD CELLS 0.0 % (0.0-0.19); PLATELET COUNT (AUTO) 207 K/uL (130-400); RED BLOOD CELL COUNT(AUTO) 5.10 MIL/uL (4.00-5.50); RED CELL DISTRIBUTION WIDTH 13.5 % (11.0-15.5); WHITE BLOOD COUNT (AUTO) 6.2 K/uL (4.8-10.8)
[2025-04-29 12:55] LABS: APPEARANCE,URINE CLEAR (CLEAR); GLUCOSE, URINE (UA) 500 mg/dL (NEGATIVE); LEUKOCYTE ESTERASE ,URINE 250 Leu/uL (NEGATIVE); NITRATE,URINE NEGATIVE (NEGATIVE); OCCULT BLOOD,URINE NEGATIVE (NEGATIVE)
[2025-04-29 12:56] LABS: ADD UA MICROSCOPIC YES
[2025-04-29 12:59] LABS: SQUAMOUS EPITHELIAL CELL,UR RARE /HPF (0-2)
[2025-04-29 13:00] LABS: CREATININE 0.7 mg/dL (0.5-1.0); GLOMERULAR FILTR. RATE CALC 100.0 mL/min (>90); GLUCOSE,RANDOM 243.0 mg/dL (70-105); SODIUM SERUM 136.0 mmol/L (136-145); UREA NITROGEN, BLOOD 11.0 mg/dL (7-18)
[2025-04-29 13:05] LABS: ASPARTATE AMINOTRANSFERASE 12.0 U/L (10-37); TOTAL PROTEIN, SERUM 7.8 g/dL (6.0-8.3)
[2025-04-29] MEDS ORDERED: CEPH500T PO (13:16)
--- NOTE | 2025-04-29 13:17 | ERN ---
ED Note History of Present Illness Stated Complaint: ABDOMINAL PAIN Chief Complaint: Abdominal Pain Time Seen by MD: 12:25 Time Seen by Midlevel: 12:26 Dictation: 59-year-old female presents to the emergency department due to reported having burning and painful urination along with mild suprapubic discomfort that started at 2:00 a.m.. She denies having any fever this but does report having some chills treated there is no report of any nausea, vomiting or hematuria. Patient states that she does not know whether or not this might be having a urinary tract infection. Upon initial evaluation, the patient presents in no acute dist ress. 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 Home Meds Active Scripts Cephalexin (Cephalexin) 500 Mg Tablet, 1 TAB PO BID for 5 Days, #10 TAB 0 Refills Prov:JAKOB REYES 04/29/25 Dicyclomine HCl (Bentyl) 10 Mg Cap, 10 MG PO BID PRN for colic for 3 Days, #10 CAP Prov:CATIE THOMASON MD 05/08/24 Metronidazole (Flagyl) 375 Mg Capsule, 375 MG PO BID for 7 Days, #14 CAP Prov:CATIE THOMASON MD 05/08/24 Sennosides (Senna) 8.6 Mg Tablet, 8.6 MG PO At bedtime for 30 Days, #30 TAB Prov:ORTIZ BARCENAS MD 02/22/24 Lisinopril (Lisinopril) 2.5 Mg Tablet, 2.5 MG PO DAILY for 30 Days, #30 TAB 1 Refill Prov:CAROL EL MD 01/02/24 Metoprolol Succinate (Toprol Xl) 25 Mg Tab.er.24h, 25 MG PO DAILY for 30 Days, #30 TAB 1 Refill Prov:CAROL EL MD 01/02/24 Aspirin (ASPIRIN 81MG CHEW TAB) 81 Mg Tab.chew, 81 MG PO DAILY for 30 Days, #30 TAB.CHEW 2 Refills Prov:CAROL EL MD 01/02/24 Reported Medications Insulin Detemir (Levemir) 100 Unit/Ml Vial, 28 UNIT SQ BIDMEALS, VIAL 01/01/24 Cetirizine HCl (Cetirizine HCl) 10 Mg Tablet, 10 MG PO DAILY, TAB 10/31/21 Sitagliptin Phosphate (Januvia) 100 Mg Tablet, 100 MG PO DAILY, TAB 01/07/20 Atorvastatin Calcium (LIPITOR) 40 Mg Tablet, 40 MG PO HS, TAB 01/07/20 Past Medical History Past Medical History: Diabetes-Type II, High Cholesterol, Hypertension, Other Additional Past Medical Hx: HX OF GASTRITIS Surgical History: Appendectomy, Surgical History Other: RIGHT OOPHRECTOMY, Family History: Negative Social History: Negative, Lives with family, Other History: Not Applicable : 8 RN Note Reviewed/Agreed w/PFSH: Yes Review of System Dictation : Dysuria Initial Vital Sign VS Vital Signs Date Time Temp Pulse Resp B/P (MAP) Pulse Ox O2 Delivery O2 Flow Rate FiO2 04/29/25 12:22 98.1 81 16 163/80 99 Room Air 04/29/25 13:32 0 21 Physical Exam Dictation General: awake, alert, NAD Head/Face: Normocephalic, atraumatic Eyes: PERRL, EOMI ENT: Oral mucosa moist Neck: Trachea midline, supple Cardiovascular: RRR, no edema Respiratory: Symmetrical, non-labored Abdomen: Soft, non-tender, non-distended, no guarding. Skin: Warm, dry, good turgor, no rash MS/Extremity: Pulses equal, no cyanosis, neurovascular intact, FROM Neuro: COAx4, GCS 15, steady gait, Psych: Normal behavior, mood, and affect normal Results (Laboratory/Radiology) Laboratory/Radiology Laboratory Tests Test 04/29/25 12:42 04/29/25 12:46 Urine Color LIGHT-YELLOW (YELLOW) Urine Appearance CLEAR (CLEAR) Urine pH 5.5 (5.0-8.0) Urine Specific [place] 1.005 (1.001-1.031) Urine Protein 10 mg/dL (NEGATIVE) H Urine Glucose (UA) 500 mg/dL (NEGATIVE) H Urine Ketones NEGATIVE mg/dL (NEGATIVE) Urine Occult Blood NEGATIVE (NEGATIVE) Urine Nitrate NEGATIVE (NEGATIVE) Urine Bilirubin NEGATIVE mg/dL (NEGATIVE) Urine Urobilinogen 0.2 mg/dL (0.2-1.0) Urine Leukocyte Esterase 250 Jill/uL (NEGATIVE) H Urine RBC 2-5 /HPF (0-1) H Urine WBC 26-50 /HPF (0-1) H Urine Squamous Epithelial Cells RARE /HPF (0-2) Urine Bacteria RARE /HPF (None Seen) White Blood Count 6.2 K/uL (4.8-10.8) Red Blood Count 5.10 MIL/uL (4.00-5.50) Hemoglobin 13.5 g/dL (12.0-16.0) Hematocrit 41.7 % (36-48) Mean Corpuscular Volume 81.8 fL (79-99) Mean Corpuscular Hemoglobin 26.5 pg (27.0-33.0) L Mean Corpuscular Hemoglobin Concent 32.4 g/dL (32.0-36.0) Red Cell Distribution Width 13.5 % (11.0-15.5) Platelet Count 207 K/uL (130-400) Mean Platelet Volume 11.6 fL (7.5-10.5) H Immature Granulocyte % (Auto) 0.3 % (0-1) Neutrophils (%) (Auto) 68.2 % (40.0-77.0) Lymphocytes (%) (Auto) 25.4 % (21.0-51.0) Monocytes (%) (Auto) 4.5 % (3.0-13.0) Eosinophils (%) (Auto) 1.3 % (0.0-8.0) Basophils (%) (Auto) 0.3 % (0.0-5.0) Neutrophils # (Auto) 4.2 K/uL (1.8-7.7) Lymphocytes # (Auto) 1.6 K/uL (1.0-4.8) Monocytes # (Auto) 0.3 K/uL (0.1-1.0) Eosinophils # (Auto) 0.08 K/uL (0.00-0.70) Basophils # (Auto) 0.02 K/uL (0.00-0.20) Absolute Immature Granulocyte (auto 0.02 K/uL (0-1) Nucleated Red Blood Cells 0.0 % (0.0-0.19) Sodium Level 136 mmol/L (136-145) Potassium Level 4.1 mmol/L (3.5-5.1) Chloride Level 102 mmol/L (101-111) Carbon Dioxide Level 30 mmol/L (21-32) Blood Urea Nitrogen 11 mg/dL (7-18) Creatinine 0.7 mg/dL (0.5-1.0) Glomerular Filtration Rate Calc 100 mL/min (>90) Random Glucose 243 mg/dL (70-105) H Total Calcium 9.3 mg/dL (8.5-10.1) Total Bilirubin 0.2 mg/dL (0.2-1.0) Aspartate Amino Transf (AST/SGOT) 12 U/L (10-37) Alanine Aminotransferase (ALT/SGPT) 21 U/L (12-78) Alkaline Phosphatase 72 U/L (50-136) Total Protein 7.8 g/dL (6.0-8.3) Albumin 3.9 g/dL (3.5-5.0) Labs Reviewed?: Yes ED Course ED Course Orders Procedure Category Date Status Time Cbc With Differential LAB 04/29/25 Complete 12:28 Comprehensive LAB 04/29/25 Complete Metabolic Panel 12:28 Urinalysis Profile LAB 04/29/25 Complete 12:28 Culture Urine DUONG 04/29/25 In Process 12:56 Vital Signs Date Time Temp Pulse Resp B/P (MAP) Pulse Ox O2 Delivery O2 Flow Rate FiO2 04/29/25 13:32 98.1 80 16 151/79 99 Room Air* 0 21 04/29/25 12:22 98.1 81 16 163/80 99 Room Air Medical Decision Making MDM MDM: Differential diagnosis: Acute UTI, dysuria, acute pyelonephritis. Rationale: Tests considered and ordered secondary to shared decision making include: Previous outside records reviewed: Old ER visits. Risk of complication and/or morbidity or mortality of patient management: None Medications-Per medication reconciliation Need for hospitalization: Patient does not meet criteria for hospitalization. Need for emergency major/minor surgery: No There are no social concerns with this patient. Prescription drug management Prescriptions will include symptomatic care Patient's prior external medical records from other ER visits were reviewed by me as indicated. Prior testing and results from previous visits were reviewed. Prior tests were taken into account with medical decision making and resource utilization, independent historian/historians were used to obtain complete medical history. I independently interpreted the test that were performed, results were reviewed by me and considered findings on radiology if ordered. Medical management and examination interpretation discussions were had by me with other qualified healthcare professionals as indicated for the patient's care. DX & DISP Disposition: Discharge Departure Impression: Primary Impression: Acute UTI Condition: Stable Scripts Cephalexin (Cephalexin) 500 Mg Tablet 1 TAB PO BID for 5 Days, #10 TAB 0 Refills Prov: JAKOB REYES 04/29/25 Referrals: NEREIDA FERNANDEZ-ANDREAS (PCP) Time of Disposition: 13:16 JAKOB REYES Apr 29, 2025 13:17 FELIX FOSTER DO Apr 29, 2025 16:35
[2025-04-29 13:32] VITALS: BP 151/79; PULSE 80; RESP 16; TEMP 98; O2SAT 99
== END 2025-04-29 13:56 | disposition home or self-care (01) ==
LOC: EDH 12:21
DX: N39.0 Urinary tract infection, site not specified (principal); E11.9 Type 2 diabetes mellitus without complications; E78.00 Pure hypercholesterolemia, unspecified; I10 Essential (primary) hypertension; Z88.5 Allergy status to narcotic agent; Z79.84 Long term (current) use of oral hypoglycemic drugs; Z79.899 Other long term (current) drug therapy; Z79.82 Long term (current) use of aspirin; Z87.19 Personal history of other diseases of the digestive system; Z90.49 Acquired absence of other specified parts of digestive tract; Z98.890 Other specified postprocedural states; Z79.4 Long term (current) use of insulin
CPT/HCPCS: 36415; 80053; 81001; 85025; 87086; 99283

== ENCOUNTER 2025-05-24 21:05 | Emergency (ER) | payer MEDICAID ==
[~2025-05-24] VITALS: Ht 154.9 cm; Wt 69.4 kg
[~2025-05-24 21:05] MED LIST changes: +CEPH500T PO
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
[2025-05-24 21:32] LABS: IMMATURE GRANULOCYTE ABSOLUTE 0.02 K/uL (0-1); NUCLEATED RED BLOOD CELLS 0.0 % (0.0-0.19); PLATELET COUNT (AUTO) 213 K/uL (130-400); RED BLOOD CELL COUNT(AUTO) 4.75 MIL/uL (4.00-5.50); RED CELL DISTRIBUTION WIDTH 13.6 % (11.0-15.5); WHITE BLOOD COUNT (AUTO) 6.4 K/uL (4.8-10.8)
[2025-05-24 21:39] LABS: CREATININE 0.7 mg/dL (0.5-1.0); GLOMERULAR FILTR. RATE CALC 100.0 mL/min (>90); GLUCOSE,RANDOM 149.0 mg/dL (70-105); SODIUM SERUM 133.0 mmol/L (136-145); UREA NITROGEN, BLOOD 23.0 mg/dL (7-18)
[2025-05-24 23:12] VITALS: BP 123/65; PULSE 75; RESP 15; TEMP 98.8; O2SAT 98
--- NOTE | 2025-05-25 02:45 | EKG ---
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
== END 2025-05-24 23:42 | disposition home or self-care (01) ==
LOC: EDH 21:05
DX: I10 Essential (primary) hypertension (principal); E11.9 Type 2 diabetes mellitus without complications; E78.00 Pure hypercholesterolemia, unspecified; Z79.82 Long term (current) use of aspirin; Z79.84 Long term (current) use of oral hypoglycemic drugs; Z79.899 Other long term (current) drug therapy; Z88.5 Allergy status to narcotic agent
CPT/HCPCS: 36415; 80048; 83735; 83880; 84484; 85025; 93005; 99284

== ENCOUNTER 2025-07-07 10:00 | Emergency (ER) | payer MEDICAID ==
[~2025-07-07] VITALS: Ht 157.5 cm; Wt 67.6 kg
[2025-07-07] MEDS: 0.9%NACL 1000ML 1,000 ML IV ONE (10:09)
--- NOTE | 2025-07-07 10:10 | ERN ---
General Chief Complaint: Flank Pain Stated Complaint: RT FLANK PAIN Time Seen by MD: 10:01 Source: patient History of Present Illness Initial Comments Patient is a 60-year-old female coming in complaining of right flank pain. Per patient the flank pain began two days ago. She states that the pain is localized to the right lower back region radiates to the right lower groin re gion. The pain is sharp 7/10 intensity. She also states that she has had a kidney stone in the past and this seems like same thing. No fever or chills Allergies: Coded Allergies: morphine (Unverified Allergy, Unknown, 04/05/19) Home Meds Active Scripts Cephalexin (Cephalexin) 500 Mg Tablet, 1 TAB PO BID for 5 Days, #10 TAB 0 Ref ills Prov:JAKOB REYES 04/29/25 Dicyclomine HCl (Bentyl) 10 Mg Cap, 10 MG PO BID PRN for colic for 3 Days, #10 CAP Prov:CATIE THOMASON MD 05/08/24 Metronidazole (Flagyl) 375 Mg Capsule, 375 MG PO BID for 7 Days, #14 CAP Prov:CATIE THOMASON MD 05/08/24 Sennosides (Senna) 8.6 Mg Tablet, 8.6 MG PO At bedtime for 30 Days, #30 TAB Prov:ORTIZ BARCENAS MD 02/22/24 Lisinopril (Lisinopril) 2.5 Mg Tablet, 2.5 MG PO DAILY for 30 Days, #30 TAB 1 Refill Prov:CAROL EL MD 01/02/24 Metoprolol Succinate (Toprol Xl) 25 Mg Tab.er.24h, 25 MG PO DAILY for 30 Days, #30 TAB 1 Refill Prov:CAROL EL MD 01/02/24 Aspirin (ASPIRIN 81MG CHEW TAB) 81 Mg Tab.chew, 81 MG PO DAILY for 30 Days, #30 TAB.CHEW 2 Refills Prov:CAROL EL MD 01/02/24 Reported Medications Insulin Detemir (Levemir) 100 Unit/Ml Vial, 28 UNIT SQ BIDMEALS, VIAL 01/01/24 Cetirizine HCl (Cetirizine HCl) 10 Mg Tablet, 10 MG PO DAILY, TAB 10/31/21 Sitagliptin Phosphate (Januvia) 100 Mg Tablet, 100 MG PO DAILY, TAB 01/07/20 Atorvastatin Calcium (LIPITOR) 40 Mg Tablet, 40 MG PO HS, TAB 01/07/20 Past Medical History Past Medical History: Diabetes-Type II, High Cholesterol, Hypertension, Kidney Stone Medical History Other: HX OF GASTRITIS Past Surgical History: None Surgical History Other: RIGHT OOPHRECTOMY, Family History Family History: Negative Social History Social History: Negative, Lives with family, Other Female( History) History: Not Applicable : 8 ROS Dictation CONSTITUTIONAL: No chills, no fever, no weakness, no diaphoresis, no malaise. HEAD/FACE: No signs of trauma. EENT: No eye pain, no blurred vision, no tearing, no double vision, no ear pain, no ear discharge, no nose pain, no nasal congestion, no throat pain, no throat swelling, no mouth pain. RESPIRATORY: No cough, no orthopnea, no SOB, no stridor, no wheezing. CARDIOVASCULAR: No chest pain, no edema, no palpitations, no syncope. GASTROINTESTINAL/ABDOMINAL: No abdominal pain, no constipation, no diarrhea, no nausea, no vomiting. GENITOURINARY: No abnormal discharge, no dysuria, no frequent urination, no hematuria. No complaints of pain in the genitals. MUSCULOSKELETAL: back pain, no gout, no joint pain, no joint swelling, no muscle pain, no muscle stiffness, no neck pain. INTEGUMENTARY: No change in color, no change in hair/nails, no dryness, no lesion, no lumps, no rash. NEUROLOGICAL/PSYCH: No anxiety, not depressed, no emotional problem, no headache, no numbness, no pre-existing deficit, no history of seizures, no tremors, no weakness. HEMATOLOGIC/LYMPHATIC: Not anemic, no history of blood clots, no apparent bleeding, no bruising, glands not swollen. All Systems Negative, Except as Noted. Physical Exam Physical Exam Dictation VITAL SIGNS: Reviewed. GENERAL APPEARANCE: Alert, oriented x3, no acute distress, obese. HEAD AND FACE: Non-traumatic. EYES: PERRL, pink conjunctivas, eyelid no trauma, anterior chamber clear. EARS: Pinnas intact and no signs of trauma or erythema. Ear canals clear and no discharge. TMs no erythema. NOSE: No discharge, no bleeding. OROPHARYNX: Mouth normal, teeth no caries, tongue pink. Pharynx clear, no erythema. Tonsils no exudates, no abscesses noted. Mucous membrane moist. NECK: Supple, non-tender, no thyromegaly, no masses, no JVD, no bruits. BREAST: Deferred. CHEST: No tenderness, no crepitus, no paradoxical movement, no retractions. LUNGS: Clear, well-ventilated, symmetric, no rales, no wheezing, no rhonchi, no stridor, good breath sounds bilaterally. HEART: Regular rate, regular rhythm, no murmur, no gallops. VASCULAR: No peripheral edema. ABDOMEN: Soft, positive bowel sounds, nondistended, no guarding, nontender, no rebound, no masses no hepatomegaly, no splenomegaly, no Esteban's sign, no hernias. RECTAL: Deferred. GENITAL: Deferred. NEUROLOGICAL: Normal speech, gross motor function intact, gross sensory function intact. MUSCULOSKELETAL: Neck nontender, full range of motion, back nontender, full range of motion. EXTREMITIES: Nontender, full range of motion. SKIN: Color pink, dry, no turgor, no rash, no lacerations, no abrasions, no contusions. LYMPHATICS: Deferred. Results Laboratory and Microbiology Lab and Micro Result Laboratory Tests Test 07/07/25 10:30 07/07/25 10:40 Urine Color LIGHT-YELLOW (YELLOW) Urine Appearance CLEAR (CLEAR) Urine pH 5.0 (5.0-8.0) Urine Specific Volin 1.026 (1.001-1.031) Urine Protein NEGATIVE mg/dL (NEGATIVE) Urine Glucose (UA) >=1000 mg/dL (NEGATIVE) H Urine Ketones NEGATIVE mg/dL (NEGATIVE) Urine Occult Blood NEGATIVE (NEGATIVE) Urine Nitrate NEGATIVE (NEGATIVE) Urine Bilirubin NEGATIVE mg/dL (NEGATIVE) Urine Urobilinogen 0.2 mg/dL (0.2-1.0) Urine Leukocyte Esterase NEGATIVE Jill/uL Urine RBC 0-1 /HPF (0-1) Urine WBC 0-1 /HPF (0-1) Urine Squamous Epithelial Cells RARE /HPF (0-2) Urine Bacteria None /HPF (None Seen) White Blood Count 4.9 K/uL (4.8-10.8) Red Blood Count 5.14 MIL/uL (4.00-5.50) Hemoglobin 13.6 g/dL (12.0-16.0) Hematocrit 42.4 % (36-48) Mean Corpuscular Volume 82.5 fL (79-99) Mean Corpuscular Hemoglobin 26.5 pg (27.0-33.0) L Mean Corpuscular Hemoglobin Concent 32.1 g/dL (32.0-36.0) Red Cell Distribution Width 13.5 % (11.0-15.5) Platelet Count 232 K/uL (130-400) Mean Platelet Volume 11.8 fL (7.5-10.5) H Immature Granulocyte % (Auto) 0.2 % (0-1) Neutrophils (%) (Auto) 59.8 % (40.0-77.0) Lymphocytes (%) (Auto) 32.5 % (21.0-51.0) Monocytes (%) (Auto) 5.9 % (3.0-13.0) Eosinophils (%) (Auto) 1.2 % (0.0-8.0) Basophils (%) (Auto) 0.4 % (0.0-5.0) Neutrophils # (Auto) 2.9 K/uL (1.8-7.7) Lymphocytes # (Auto) 1.6 K/uL (1.0-4.8) Monocytes # (Auto) 0.3 K/uL (0.1-1.0) Eosinophils # (Auto) 0.06 K/uL (0.00-0.70) Basophils # (Auto) 0.02 K/uL (0.00-0.20) Absolute Immature Granulocyte (auto 0.01 K/uL (0-1) Nucleated Red Blood Cells 0.0 % (0.0-0.19) Sodium Level 140 mmol/L (136-145) Potassium Level 4.1 mmol/L (3.5-5.1) Chloride Level 103 mmol/L (101-111) Carbon Dioxide Level 30 mmol/L (21-32) Blood Urea Nitrogen 25 mg/dL (7-18) H Creatinine 0.8 mg/dL (0.5-1.0) Glomerular Filtration Rate Calc 84 mL/min (>90) Random Glucose 244 mg/dL (70-105) H Total Calcium 9.4 mg/dL (8.5-10.1) Labs Reviewed?: Yes EKG/XRAY/US/CT/MRI CT Scan Comment [facility] [address] [place], [place] [address] IMAGING REPORT Signed PATIENT: AMBIKA PATEL V MR#: [id number] : 1965 SEX: F AGE: 60 LOCATION: [facility] ORDER 1003 STATUS: REG ER REPORT#: [id number] SERVICE 1002 REASON: ABD PAIN ORDERING PHYSICIAN: CATIE THOMASON MD PROCEDURE: ABD PEL WO - CT ABDOMEN/PELVIS W/O CONTRAST CT ABDOMEN/PELVIS W/O CONTRAST REASON: ABD PAIN COMPARISON: None. FINDINGS: Lung bases are clear. There is coronary calcification suggesting of coronary artery disease. There is a small hiatal hernia. There are no focal liver lesions. There are normal-appearing kidneys.. Spleen and pancreas appear unremarkable. The gallbladder appears normal as well. Bowel loops appear unremarkable. This includes normal appearance of the appendix there are scattered diverticulosis mostly in the descending and sigmoid colon with no associated diverticulitis. There is no evidence of free fluid or intraperitoneal air. There are no focal fluid collections. Aorta restricted diffuse atherosclerotic changes with calcified plaque this is also seen in both common iliac and external iliac arteries. Retroperitoneum appear normal as do pelvic soft tissue structures. The anterior abdominal wall is intact. Osseous structures appear unremarkable. IMPRESSION: 1. No acute process seen a CT of the abdomen and pelvis without intravenous contrast 2. Coronary calcification suggesting of coronary artery disease 3. Scattered diverticulosis with no evidence of diverticulitis. CT was performed with one or more following dose reduction techniques: automated exposure control, adjustment of the mA and kv according to patient's size, or use of a iterative reconstruction technique. DICTATED BY: ALENA BEE MD DATE: 07/07/25 143 ELECTRONICALLY SIGNED BY: ALENA BEE MD DATE: 07/07/25 1442 [facility] MDM: Differential diagnosis: Diverticulosis, kidney stones, Rationale: Tests considered and ordered secondary to shared decision making include: Previous outside records reviewed: Old ER visits. Risk of complication and/or morbidity or mortality of patient management: None Medications-Per medication reconciliation Need for hospitalization: Patient does not meet criteria for hospitalization. Need for emergency major/minor surgery: No Patient is a 60-year-old female coming in complaining of right flank pain. CT did not disclose any acute findings. That has some scattered diverticulosis but no acute kidney injury. Patient states that the pain was significant but improved with the pain medication I did advise her that we will be prescribing anti-inflammatories to continue taking and I also encouraged her to follow up with the PCP as soon as possible for ongoing management. ED Course Orders Procedure Category Date Status Time Cbc With Differential LAB 07/07/25 Complete 10: Urinalysis Profile LAB 07/07/25 Complete 10: Ct Abdomen/Pelvis W/O CT 07/07/25 Resulted Contrast 10: Basic Metabolic Panel LAB 07/07/25 Complete 10: 0.9%Nacl 1000ml (Ns PHA 07/07/25 Complete 1000ml) 10: Ketorolac PHA 07/07/25 In Process Tromethamine 15mg/Ml 15:00 Current Medications Medications (Trade) Dose Ordered Sig/Ron Route PRN Reason Start Time Stop Time Status Last Admin Dose Admin Ketorolac Tromethamine (toRADol) 15 mg ONCE ONCE IM 07/07/25 15:00 07/07/25 15:01 07/07/25 14:47 Sodium Chloride 1,000 ml @ 0 mls/hr ONCE ONCE IV 07/07/25 10:30 07/07/25 10:31 DC 07/07/25 10:09 Vital Signs Date Time Temp Pulse Resp B/P (MAP) Pulse Ox O2 Delivery O2 Flow Rate FiO2 07/07/25 12:46 98.6 75 13 144/76 100 Room Air* 0 21 07/07/25 10:09 97.7 80 20 135/65 99 Room Air* 0 21 07/07/25 10:01 97.7 80 20 135/65 99 Room Air DX & DISP Disposition: Discharge Departure Impression: Primary Impression: Diverticulosis Additional Impression: Abdominal muscle strain Condition: Stable Scripts Naproxen (Naproxen) 250 Mg Tablet 1 TAB PO BID for pain for 15 Days, #30 TAB 0 Refills Prov: CATIE THOMASON MD 07/07/25 Additional Instructions: FOLLOW-UP WITH PRIMARY CARE PROVIDER IN 1 TO 2 DAYS. TAKE MEDICATIONS DIRECTED HERE IN THE EMERGENCY ROOM. OKAY TO CONTINUE HOME MEDICATIONS UNLESS OTHERWISE DISCUSSED DURING YOUR VISIT IN THE EMERGENCY ROOM TODAY. RETURN TO YOUR NEAREST EMERGENCY ROOM IF SYMPTOMS WORSEN OR IF THERE IS NO IMPROVEMENT. CALL 911 IF YOU NEED IMMEDIATE ASSISTANCE. TAKE TYLENOL [id number] N EEDED AND IF NO CONTRAINDICATIONS ARE PRESENT. INCREASE ORAL HYDRATION. A WOUND CULTURE OR URINE CULTURE WAS ORDERED HERE IN THE EMERGENCY ROOM DEPARTMENT PLEASE FOLLOW-UP WITH PRIMARY CARE PROVIDER AND ADVISE THEM TO GET REPORTS FROM OUR FACILITY. IF YOU HAD ANY RICHARD WRAP/SPLINTS THAT WERE APPLIED HERE, PLEASE DO NOT REMOVE THEM UNTIL YOU SEE YOUR PRIMARY CARE OR SPECIALTY. Referrals: Referrals: NEREIDA FERNANDEZ (PCP) Time of Disposition: 14:55 CATIE THOMASON MD Jul 07, 2025 10:10
[2025-07-07 10:47] LABS: IMMATURE GRANULOCYTE ABSOLUTE 0.01 K/uL (0-1); NUCLEATED RED BLOOD CELLS 0.0 % (0.0-0.19); PLATELET COUNT (AUTO) 232 K/uL (130-400); RED BLOOD CELL COUNT(AUTO) 5.14 MIL/uL (4.00-5.50); RED CELL DISTRIBUTION WIDTH 13.5 % (11.0-15.5); WHITE BLOOD COUNT (AUTO) 4.9 K/uL (4.8-10.8)
[2025-07-07 10:53] LABS: CREATININE 0.8 mg/dL (0.5-1.0); GLOMERULAR FILTR. RATE CALC 84.0 mL/min (>90); GLUCOSE,RANDOM 244.0 mg/dL (70-105); SODIUM SERUM 140.0 mmol/L (136-145); UREA NITROGEN, BLOOD 25.0 mg/dL (7-18)
[2025-07-07 11:03] LABS: APPEARANCE,URINE CLEAR (CLEAR); GLUCOSE, URINE (UA) >=1000 mg/dL (NEGATIVE); LEUKOCYTE ESTERASE ,URINE NEGATIVE Leu/uL (NEGATIVE); NITRATE,URINE NEGATIVE (NEGATIVE); OCCULT BLOOD,URINE NEGATIVE (NEGATIVE)
[2025-07-07 11:05] LABS: ADD UA MICROSCOPIC YES
[2025-07-07 11:08] LABS: SQUAMOUS EPITHELIAL CELL,UR RARE /HPF (0-2)
[2025-07-07 12:46] VITALS: BP 144/76; PULSE 75; RESP 13; TEMP 98.6; O2SAT 100
--- NOTE | 2025-07-07 14:42 | HMCIMG ---
CT ABDOMEN/PELVIS W/O CONTRAST REASON: ABD PAIN COMPARISON: None. FINDINGS: Lung bases are clear. There is coronary calcification suggesting of coronary artery disease. There is a small hiatal hernia. There are no focal liver lesions. There are normal-appearing kidneys.. Spleen and pancreas appear unremarkable. The gallbladder appears normal as well. Bowel loops appear unremarkable. This includes normal appearance of the appendix there are scattered diverticulosis mostly in the descending and sigmoid colon with no associated diverticulitis. There is no evidence of free fluid or intraperitoneal air. There are no focal fluid collections. Aorta restricted diffuse atherosclerotic changes with calcified plaque this is also seen in both common iliac and external iliac arteries. Retroperitoneum appear normal as do pelvic soft tissue structures. The anterior abdominal wall is intact. Osseous structures appear unremarkable. IMPRESSION: 1. No acute process seen a CT of the abdomen and pelvis without intravenous contrast 2. Coronary calcification suggesting of coronary artery disease 3. Scattered diverticulosis with no evidence of diverticulitis. CT was performed with one or more following dose reduction techniques: automated exposure control, adjustment of the mA and kv according to patient's size, or use of a iterative reconstruction technique.
[2025-07-07] MEDS ORDERED: NAPR-1196 PO (14:56)
== END 2025-07-07 15:33 | disposition home or self-care (01) ==
LOC: EDH 10:00
DX: S39.011A Strain of muscle, fascia and tendon of abdomen, initial encounter (principal); K57.30 Diverticulosis of large intestine without perforation or abscess without bleeding; E11.9 Type 2 diabetes mellitus without complications; E78.00 Pure hypercholesterolemia, unspecified; I10 Essential (primary) hypertension; Z88.5 Allergy status to narcotic agent; Z79.899 Other long term (current) drug therapy; Z79.82 Long term (current) use of aspirin; Z79.84 Long term (current) use of oral hypoglycemic drugs; Z87.19 Personal history of other diseases of the digestive system; Z87.442 Personal history of urinary calculi; X58.XXXA Exposure to other specified factors, initial encounter; Y93.89 Activity, other specified; Y92.89 Other specified places as the place of occurrence of the external cause; Y99.8 Other external cause status
CPT/HCPCS: 99285; 74176; 96360; 80048; 85025; 81001; 36415; 96372; J1885; J7030

== ENCOUNTER 2025-07-14 18:48 | Emergency (ER) | payer MEDICAID ==
[~2025-07-14] VITALS: Ht 154.9 cm; Wt 67.1 kg
[~2025-07-14 18:48] MED LIST changes: +NAPR-1196 PO
--- NOTE | 2025-07-14 19:32 | ERN ---
ED Note History of Present Illness Stated Complaint: FALL Chief Complaint: Mechanical Fall Time Seen by MD: 18:51 Time Seen by Midlevel: 18:51 Dictation: The patient is a 60-year-old female with history of hld, htn who presents to the emergency department with complains of left foot injury and pain after accidentally tripping over a stroller and falling prior to arrival. Patient denies any head trauma, denies any back or chest pain, denies any other injuries. Allergies: Coded Allergies: morphine (Unverified Allergy, Unknown, 04/05/19) Home Meds Active Scripts Meloxicam (Meloxicam) 15 Mg Tablet, 1 TAB PO DAILY for 10 Days, #15 TAB 0 Refills Prov:NIEVES BERRY 07/14/25 Naproxen (Naproxen) 250 Mg Tablet, 1 TAB PO BID for pain for 15 Days, #30 TAB 0 Refills Prov:CATIE THOMASON MD 07/07/25 Cephalexin (Cephalexin) 500 Mg Tablet, 1 TAB PO BID for 5 Days, #10 TAB 0 Refills Prov:JAKOB REYES 04/29/25 Dicyclomine HCl (Bentyl) 10 Mg Cap, 10 MG PO BID PRN for colic for 3 Days, #10 CAP Prov:CATIE THOMASON MD 05/08/24 Metronidazole (Flagyl) 375 Mg Capsule, 375 MG PO BID for 7 Days, #14 CAP Prov:CATIE THOMASON MD 05/08/24 Sennosides (Senna) 8.6 Mg Tablet, 8.6 MG PO At bedtime for 30 Days, #30 TAB Prov:ORTIZ BARCENAS MD 02/22/24 Lisinopril (Lisinopril) 2.5 Mg Tablet, 2.5 MG PO DAILY for 30 Days, #30 TAB 1 Refill Prov:CAROL EL MD 01/02/24 Metoprolol Succinate (Toprol Xl) 25 Mg Tab.er.24h, 25 MG PO DAILY for 30 Days, #30 TAB 1 Refill Prov:CAROL EL MD 01/02/24 Aspirin (ASPIRIN 81MG CHEW TAB) 81 Mg Tab.chew, 81 MG PO DAILY for 30 Days, #30 TAB.CHEW 2 Refills Prov:CAROL LE MD 01/02/24 Reported Medications Insulin Detemir (Levemir) 100 Unit/Ml Vial, 28 UNIT SQ BIDMEALS, VIAL 01/01/24 Cetirizine HCl (Cetirizine HCl) 10 Mg Tablet, 10 MG PO DAILY, TAB 10/31/21 Sitagliptin Phosphate (Januvia) 100 Mg Tablet, 100 MG PO DAILY, TAB 01/07/20 Atorvastatin Calcium (LIPITOR) 40 Mg Tablet, 40 MG PO HS, TAB 01/07/20 Past Medical History Past Medical History: Diabetes-Type II, High Cholesterol, Hypertension, Kidney Stone Additional Past Medical Hx: HX OF GASTRITIS Surgical History: None Surgical History Other: RIGHT OOPHRECTOMY, Family History: Negative Social History: Negative, Lives with family, Other History: Not Applicable : 8 RN Note Reviewed/Agreed w/PFSH: Yes Review of System Dictation Constitutional: Negative for fever,chills, and weight loss Eyes: Negative for injury, pain,redness, and discharge ENT: Negative for injury,pain or swelling Cardiovascular: Negative for chest pain, palpitations, and edema Respiratory: Negative for shortness of breath, cough, and wheezing, Abdomen/GI: Negative for abdominal pain, nausea, vomiting, diarrhea, and constipation Back: Negative for injury and pain : Negative for injury, bleeding and discharge MS/Extremity: Positive for left foot injury, Skin: Negative for rash, and discoloration Neuro: Negative for headache, weakness, numbness, tingling, and seizure Psych: Negative for suicide ideation, homicidal ideation, and hallucinations Initial Vital Sign VS Vital Signs Date Time Temp Pulse Resp B/P (MAP) Pulse Ox O2 Delivery O2 Flow Rate FiO2 07/14/25 18:50 98.4 62 18 158/68 98 07/14/25 19:06 Room Air* 0 21 Physical Exam Dictation Vital Signs reviewed General Appearance: Alert, oriented x 3, no acute distress, well developed, nourished. Head and Face: non-traumatic. Eyes: PERRL, pink conjunctivas, eyelid no trauma, anterior chamber with arcus senilis. Ears: Pinnas intact and no signs of trauma or erythema ear canals clear and no discharge TM no erythema Nose: No discharge, no bleeding. Oropharynx: Mouth normal, tongue pink. pharynx clear,no erythema, tonsils no exudates, no abscesses noted, mucous membrane moist Neck: Supple, non-tender, no thyromegaly, no masses, no JVD, no bruits Breast:Deferred Chest:No tenderness, no crepitus, no paradoxical movement, no retractions Lungs:Clear, well-ventilated, symmetric, no rales, no wheezing, no rhonchi, no stridor, good breath sounds bilaterally Heart: Regular rate, regular rhythm, no murmur, no gallops Vascular: no peripheral edema, dorsalis pedis 3+ bilaterally Abdomen: Soft, positive bowel sounds, nondistended, no guarding, nontender, no rebound, no masses no hepatomegaly, no splenomegaly, no Esteban's sign, no hernias. Rectal: Deferred Genital: Deferred Neurological: Normal speech, motor function intact, sensory function intact Musculoskeletal: Neck nontender, full range of motion, back nontender, full range of motion, Extremities:, full range of motion , tenderness to left front, cap refill less than 2 seconds, no open wounds Skin: Color pink, dry, no turgor, no rash, no lacerations, no abrasions, no contusions. Lymphatic: Deferred Results (Laboratory/Radiology) Laboratory/Radiology REASON: injury ORDERING PHYSICIAN: NIEVES BERRY [facility] [employer]SE[employer]PER PROCEDURE: FT 3VW LT - FOOT COMP 3+VWS LT EXAM: CR right foot, 3 View. CLINICAL HISTORY: injury COMPARISON: None provided. FINDINGS: FINDINGS: Mildly displaced oblique fracture of the mid to distal fifth metatarsal. No definite intra-articular extension. Joint spaces remain anatomically aligned. IMPRESSION: 1. Mildly displaced oblique fracture of the mid to distal fifth metatarsal without definite intra-articular extension. /[place] REASON: injury ORDERING PHYSICIAN: NIEVES BERRY [facility] PROCEDURE: [id number] - ANKLE COMP 3VWS LT EXAM: CR left ankle, 3 View. CLINICAL HISTORY: injury COMPARISON: None provided. FINDINGS: Mildly displaced oblique fracture of the mid to distal fifth metatarsal. Joint spaces remain anatomically aligned. The ankle mortise is congruent, and subtalar joint is preserved. No ankle joint effusion. IMPRESSION: 1. Mildly displaced oblique fracture of the mid to distal fifth metatarsal. /[place] Labs Reviewed?: Yes ED Course ED Course Orders Procedure Category Date Status Time Foot Comp 3+Vws Lt RAD 07/14/25 Resulted 19:04 Ankle Comp 3vws Lt RAD 07/14/25 Resulted 19:04 Ketorolac PHA 07/14/25 Complete Tromethamine 30mg/Ml 19:30 *Nursing CPOE 07/14/25 Transmitted Communication: 20:17 Crutches W/Training CPOE 07/14/25 Transmitted (Er) 20:17 Current Medications Medications (Trade) Dose Ordered Sig/Ron Route PRN Reason Start Time Stop Time Status Last Admin Dose Admin Ketorolac Tromethamine (toRADol) 30 mg ONCE ONCE IM 07/14/25 19:30 07/14/25 19:31 DC 07/14/25 19:20 Vital Signs Date Time Temp Pulse Resp B/P (MAP) Pulse Ox O2 Delivery O2 Flow Rate FiO2 07/14/25 19:06 98.4 62 18 158/68 98 Room Air* 0 21 07/14/25 18:50 98.4 62 18 158/68 98 Medical Decision Making MDM The patient is a 60-year-old female with history of hld, htn who presents to the emergency department with complains of left foot injury and pain after accidentally tripping over a stroller and falling prior to arrival. Patient denies any head trauma, denies any back or chest pain, denies any other injuries. Xray showed a midly displace oblique fracture of the mid to distal fifth metatarsal without definite intra articular extension. Patient placed on a splint. patient otherwise in no acute distress, neurovascular intact, Patient instructed to follow up with ortho. Differential diagnosis: Fracture, ankle sprain, foot contusion Need for hospitalization: Patient does not meet criteria for hospitalization. There are no social concerns with this patient. DX & DISP Disposition: Discharge Departure Impression: Primary Impression: Fracture of fifth metatarsal bone of left foot Condition: Stable Scripts Meloxicam (Meloxicam) 15 Mg Tablet 1 TAB PO DAILY for 10 Days, #15 TAB 0 Refills Prov: NIEVES BERRY H[facility] [employer]SEK[employer]PER 07/14/25 Additional Instructions: Your xray showed you have a foot fracture. You need to follow up with orthopedic (bone doctor) as soon as possible. also follow up with your PCP in 1-2 days. Continue to monitor your foot for any discoloration or extreme pain. If anything worsens please return to ER. FOLLOW-UP WITH PRIMARY CARE PROVIDER IN 1 TO 2 DAYS. TAKE MEDICATIONS DIRECTED HERE IN THE EMERGENCY ROOM. OKAY TO CONTINUE HOME MEDICATIONS UNLESS OTHERWISE DISCUSSED DURING YOUR VISIT IN THE EMERGENCY ROOM TODAY. RETURN TO YOUR NEAREST EMERGENCY ROOM IF SYMPTOMS WORSEN OR IF THERE IS NO IMPROVEMENT. CALL 911 IF YOU NEED IMMEDIATE ASSISTANCE. TAKE TYLENOL [id number] NEEDED AND IF NO CONTRAINDICATIONS ARE PRESENT. INCREASE ORAL HYDRATION. A WOUND CULTURE OR URINE CULTURE WAS ORDERED HERE IN THE EMERGENCY ROOM DEPARTMENT PLEASE FOLLOW-UP WITH PRIMARY CARE PROVIDER AND ADVISE THEM TO GET REPEAT PORTS FROM OUR FACILITY. IF YOU HAD ANY RICHARD WRAP/SPLINTS THAT WERE APPLIED HERE, PLEASE DO NOT REMOVE THEM UNTIL YOU SEE YOUR PRIMARY CARE OR SPECIALTY. Referrals: NEPTALI VICTORIA PA-C (PCP) ALTAGRACIA VERA MD Time of Disposition: 20:41 I have reviewed the case, and I agree with, Diagnosis and Plan NIEVES BERRY [facility] Jul 14, 2025 19:32
[2025-07-14] MEDS ORDERED: MELO-108 PO (20:42)
--- NOTE | 2025-07-14 21:04 | HMCIMG ---
EXAM: CR left ankle, 3 View. CLINICAL HISTORY: injury COMPARISON: None provided. FINDINGS: Mildly displaced oblique fracture of the mid to distal fifth metatarsal. Joint spaces remain anatomically aligned. The ankle mortise is congruent, and subtalar joint is preserved. No ankle joint effusion. IMPRESSION: 1. Mildly displaced oblique fracture of the mid to distal fifth metatarsal. /[place]
--- NOTE | 2025-07-14 21:05 | HMCIMG ---
EXAM: CR right foot, 3 View. CLINICAL HISTORY: injury COMPARISON: None provided. FINDINGS: FINDINGS: Mildly displaced oblique fracture of the mid to distal fifth metatarsal. No definite intra-articular extension. Joint spaces remain anatomically aligned. IMPRESSION: 1. Mildly displaced oblique fracture of the mid to distal fifth metatarsal without definite intra-articular extension. /[place]
[2025-07-14 21:56] VITALS: BP 148/67; PULSE 63; RESP 18; TEMP 98.4; O2SAT 99
--- NOTE | 2025-07-14 21:56 | NUR ---
PER ER RETAIL CUSTOMER SERVICE SPECIALIST, SHORT POSTERIOR SPLINT APPLIED TO PATIENT'S LEFT ANKLE. DISTAL CAPILLARY REFILL IS NORMAL. PATIENT EDUCATED ON SPLINT CARE AND VERBALIZED UNDERSTANDING.
== END 2025-07-14 22:02 | disposition home or self-care (01) ==
LOC: EDH 18:48
DX: S92.352A Displaced fracture of fifth metatarsal bone, left foot, initial encounter for closed fracture (principal); E11.9 Type 2 diabetes mellitus without complications; E78.00 Pure hypercholesterolemia, unspecified; I10 Essential (primary) hypertension; Z79.1 Long term (current) use of non-steroidal anti-inflammatories (NSAID); Z79.82 Long term (current) use of aspirin; Z79.84 Long term (current) use of oral hypoglycemic drugs; Z79.899 Other long term (current) drug therapy; Z87.442 Personal history of urinary calculi; Z88.5 Allergy status to narcotic agent; Z87.19 Personal history of other diseases of the digestive system; W01.0XXA Fall on same level from slipping, tripping and stumbling without subsequent striking against object, initial encounter; Y93.89 Activity, other specified; Y92.89 Other specified places as the place of occurrence of the external cause; Y99.8 Other external cause status
CPT/HCPCS: 99284; 29515; 73610; 73630; 96372; J1885

== ENCOUNTER 2025-07-15 10:47 | Emergency (ER) | payer MEDICAID ==
[~2025-07-15] VITALS: Ht 154.9 cm; Wt 67.1 kg
[~2025-07-15 10:47] MED LIST changes: +MELO-108 PO
[2025-07-15 11:14] LABS: IMMATURE GRANULOCYTE ABSOLUTE 0.02 K/uL (0-1); NUCLEATED RED BLOOD CELLS 0.0 % (0.0-0.19); PLATELET COUNT (AUTO) 199 K/uL (130-400); RED BLOOD CELL COUNT(AUTO) 5.12 MIL/uL (4.00-5.50); RED CELL DISTRIBUTION WIDTH 13.3 % (11.0-15.5); WHITE BLOOD COUNT (AUTO) 5.3 K/uL (4.8-10.8)
[2025-07-15 11:29] LABS: CREATININE 0.9 mg/dL (0.5-1.0); GLOMERULAR FILTR. RATE CALC 73.0 mL/min (>90); SODIUM SERUM 132.0 mmol/L (136-145); UREA NITROGEN, BLOOD 26.0 mg/dL (7-18)
[2025-07-15 11:33] LABS: GLUCOSE,RANDOM 444.0 mg/dL (70-105)
[2025-07-15] MEDS: 0.9%NACL 1000ML 1,000 ML IV ONE (11:53)
--- NOTE | 2025-07-15 12:25 | HMCIMG ---
EXAM: CR Left Tibia and fibula, 2 View. CLINICAL HISTORY: fall COMPARISON: None provided. FINDINGS: BONES: No acute fracture or aggressive appearing osseous lesion. JOINTS: No dislocation. The joint spaces are normal. SOFT TISSUES: The soft tissues are unremarkable. IMPRESSION: No acute osseous abnormality. /[place]
--- NOTE | 2025-07-15 12:26 | HMCIMG ---
EXAM: CR right Knee, 3 View. CLINICAL HISTORY: fall COMPARISON: None provided. FINDINGS: BONES: No acute fracture or aggressive appearing osseous lesion. JOINTS: The joint spaces show no significant degenerative disease. There is no joint effusion appreciated. SOFT TISSUES: The soft tissues are unremarkable. IMPRESSION: No acute osseous pathology evident. /[place]
[2025-07-15 13:13] VITALS: BP 147/62; PULSE 81; RESP 20; TEMP 98.8; O2SAT 97
--- NOTE | 2025-07-15 13:24 | ERN ---
General Chief Complaint: Lower Extremity Pain/Injury Stated Complaint: FALL W/BILAT LEG DISCOMFORT. Time Seen by MD: 10:55 Time Seen by Midlevel: 10:55 Source: patient History of Present Illness Initial Comments 60-year-old female with a past medical history of type 2 diabetes presents to the emergency department after she sustained a mechanical ground level fall. The patient was seen in our emergency department yesterday after she injured her left lower extremity. She was diagnosed with a 5th meta tarsal fracture and discharged home with a splint. Today while she was trying to get on the toilet her walker slipped from underneath her and she fell onto her right side. She has pain to her right knee and left tib-fib area. She specifically denies any head injury or loss of consciousness. According to EMS glucose on arrival was over 500. The patient does report having a history of diabetes but states she forgot to take her insulin last night and she was going to take it this morning but did not get the chance to. Denies any other symptoms at this time. Allergies: Coded Allergies: morphine (Unverified Allergy, Unknown, 04/05/19) Home Meds Active Scripts Meloxicam (Meloxicam) 15 Mg Tablet, 1 TAB PO DAILY for 10 Days, #15 TAB 0 Refills Prov:NIEVES BERRY DOG RAISER 07/14/25 Naproxen (Naproxen) 250 Mg Tablet, 1 TAB PO BID for pain for 15 Days, #30 TAB 0 Refills Prov:CATIE THOMASON MD 07/07/25 Cephalexin (Cephalexin) 500 Mg Tablet, 1 TAB PO BID for 5 Days, #10 TAB 0 Refills Prov:JAKOB REYES DOG RAISER 04/29/25 Dicyclomine HCl (Bentyl) 10 Mg Cap, 10 MG PO BID PRN for colic for 3 Days, #10 CAP Prov:CATIE THOMASON MD 05/08/24 Metronidazole (Flagyl) 375 Mg Capsule, 375 MG PO BID for 7 Days, #14 CAP Prov:CATIE THOMASON MD 05/08/24 Sennosides (Senna) 8.6 Mg Tablet, 8.6 MG PO At bedtime for 30 Days, #30 TAB Prov:ORTIZ BARCENAS MD 02/22/24 Lisinopril (Lisinopril) 2.5 Mg Tablet, 2.5 MG PO DAILY for 30 Days, #30 TAB 1 Refill Prov:CAROL EL MD 01/02/24 Metoprolol Succinate (Toprol Xl) 25 Mg Tab.er.24h, 25 MG PO DAILY for 30 Days, #30 TAB 1 Refill Prov:CAROL EL MD 01/02/24 Aspirin (ASPIRIN 81MG CHEW TAB) 81 Mg Tab.chew, 81 MG PO DAILY for 30 Days, #30 TAB.CHEW 2 Refills Prov:CAROL EL MD 01/02/24 Reported Medications Insulin Detemir (Levemir) 100 Unit/Ml Vial, 28 UNIT SQ BIDMEALS, VIAL 01/01/24 Cetirizine HCl (Cetirizine HCl) 10 Mg Tablet, 10 MG PO DAILY, TAB 10/31/21 Sitagliptin Phosphate (Januvia) 100 Mg Tablet, 100 MG PO DAILY, TAB 01/07/20 Atorvastatin Calcium (LIPITOR) 40 Mg Tablet, 40 MG PO HS, TAB 01/07/20 Past Medical History Past Medical History: Diabetes-Type II, High Cholesterol, Hypertension, Kidney Stone Medical History Other: HX OF GASTRITIS, TOE FX, BLIND Past Surgical History: None Surgical History Other: RIGHT OOPHRECTOMY, Family History Family History: Negative Social History Social History: Negative, Lives with family, Other Female( History) History: Not Applicable : 8 ROS Dictation CONSTITUTIONAL: Negative except for HPI HEAD/FACE: Negative except for HPI EENT: Negative except for HPI RESPIRATORY: Negative except for HPI GASTROINTESTINAL/ABDOMINAL: Negative except for HPI GENITOURINARY: Negative except for HPI MUSCULOSKELETAL: Negative except for HPI INTEGUMENTARY: Negative except for HPI NEUROLOGICAL/PSYCH: Negative except for HPI HEMATOLOGIC/LYMPHATIC: Negative except for HPI All Systems Negative, Except as noted above. 13 point review of systems assessed and all negative except for above. Physical Exam Physical Exam Dictation Vital Signs reviewed General Appearance: Alert, oriented x 3, no acute distress, well developed, nourished. Head and Face: non-traumatic. Eyes: PERRL, pink conjunctivas, eyelid no trauma, anterior chamber with arcus senilis. Ears: Pinnas intact and no signs of trauma or erythema ear canals clear and no discharge TM no erythema Nose: No discharge, no bleeding. Oropharynx: Mouth normal, tongue pink, pharynx clear,no erythema, tonsils no exudates, no abscesses noted, mucous membrane moist Neck: Supple, non-tender, no thyromegaly, no masses, no JVD, no bruits Breast:Deferred Chest:No tenderness, no crepitus, no paradoxical movement, no retractions Lungs:Clear, well-ventilated, symmetric, no rales, no wheezing, no rhonchi, no stridor, good breath sounds bilaterally Heart: Regular rate, regular rhythm, no murmur, no gallops Vascular: no peripheral edema, Abdomen: Soft, positive bowel sounds, nondistended, no guarding, nontender, no rebound, no masses no hepatomegaly, no splenomegaly, no Esteban's sign, no hernias. Rectal: Deferred Genital: Deferred Neurological: Normal speech, motor function intact, sensory function intact Musculoskeletal: Neck nontender, full range of motion, splint in place to the left lower extremity Extremities: nontender, full range of motion Skin: Color pink, dry, no turgor, no rash, no lacerations, no abrasions, no contusions. Lymphatic: Deferred Results Laboratory and Microbiology Lab and Micro Result Laboratory Tests Test 07/15/25 11:07 07/15/25 13:00 White Blood Count 5.3 K/uL (4.8-10.8) Red Blood Count 5.12 MIL/uL (4.00-5.50) Hemoglobin 13.4 g/dL (12.0-16.0) Hematocrit 42.2 % (36-48) Mean Corpuscular Volume 82.4 fL (79-99) Mean Corpuscular Hemoglobin 26.2 pg (27.0-33.0) L Mean Corpuscular Hemoglobin Concent 31.8 g/dL (32.0-36.0) L Red Cell Distribution Width 13.3 % (11.0-15.5) Platelet Count 199 K/uL (130-400) Mean Platelet Volume 11.6 fL (7.5-10.5) H Immature Granulocyte % (Auto) 0.4 % (0-1) Neutrophils (%) (Auto) 67.3 % (40.0-77.0) Lymphocytes (%) (Auto) 25.0 % (21.0-51.0) Monocytes (%) (Auto) 6.0 % (3.0-13.0) Eosinophils (%) (Auto) 1.1 % (0.0-8.0) Basophils (%) (Auto) 0.2 % (0.0-5.0) Neutrophils # (Auto) 3.6 K/uL (1.8-7.7) Lymphocytes # (Auto) 1.3 K/uL (1.0-4.8) Monocytes # (Auto) 0.3 K/uL (0.1-1.0) Eosinophils # (Auto) 0.06 K/uL (0.00-0.70) Basophils # (Auto) 0.01 K/uL (0.00-0.20) Absolute Immature Granulocyte (auto 0.02 K/uL (0-1) Nucleated Red Blood Cells 0.0 % (0.0-0.19) Sodium Level 132 mmol/L (136-145) L Potassium Level 4.5 mmol/L (3.5-5.1) Chloride Level 98 mmol/L (101-111) L Carbon Dioxide Level 23 mmol/L (21-32) Blood Urea Nitrogen 26 mg/dL (7-18) H Creatinine 0.9 mg/dL (0.5-1.0) Glomerular Filtration Rate Calc 73 mL/min (>90) Random Glucose 444 mg/dL (70-105) *H Whole Blood Ketones Quantitative 0.1 mmol/L (0.0-0.6) Total Calcium 9.3 mg/dL (8.5-10.1) Whole Blood Glucose 211 MG/DL (70-110) H Labs Reviewed?: Yes MDM MDM: 60-year-old female with a past medical history of type 2 diabetes presents to the emergency department after she sustained a mechanical ground level fall. The patient was seen in our emergency department yesterday after she injured her left lower extremity. She was diagnosed with a 5th meta tarsal fracture and discharged home with a splint. Today while she was trying to get on the toilet her walker slipped from underneath her and she fell onto her right side. She has pain to her right knee and left tib-fib area. She specifically denies any head injury or loss of consciousness. According to EMS glucose on arrival was over 500. The patient does report having a history of diabetes but states she forgot to take her insulin last night and she was going to take it this morning but did not get the chance to. Denies any other symptoms at this time. Physical examination the patient has a superficial abrasion to the right knee otherwise her physical examination is reassuring. An x-ray of the right knee and left tib-fib area was obtained since this was the only place she was complaining of pain two. X-rays are negative for any acute fracture or dislocation. Given the EMS obtained a glucose of over 500 basic labs were obtained including ketones. Ketones are negative. She has a normal anion gap. Her sugar is 444 in the emergency department. She was given 6 units of regular insulin IV and 1 L of IV fluids. Her sugar improved to 211. No evidence of DKA. We will discharged home with supportive management Differential diagnosis: Fracture, contusion, dislocation hyperglycemia There are no social concerns with this patient. Prescription drug management Prescriptions will include: None Medical management and examination interpretation discussions were had by me with other qualified healthcare professionals as indicated for the patient's care. ED Course Orders Procedure Category Date Status Time Cbc With Differential LAB 07/15/25 Complete 11:00 Basic Metabolic Panel LAB 07/15/25 Complete 11:00 Ketone Blood LAB 07/15/25 Complete Quantitative 11:00 Knee 3vws Rt RAD 07/15/25 Resulted 11:00 Tibia/Fibula 2vws Lt RAD 07/15/25 Resulted 11:00 Acetaminophen 325 Tab PHA 07/15/25 Complete (Tylenol 325mg Tab 11:00 0.9%Nacl 1000ml (Ns PHA 07/15/25 Complete 1000ml) 12:00 Insulin Regular, PHA 07/15/25 Complete Human 3ml (Humulin R 12:00 Bedside Glucose CPOE 07/15/25 Transmitted Fingerstick 12:37 Current Medications Medications (Trade) Dose Ordered Sig/Ron Route PRN Reason Start Time Stop Time Status Last Admin Dose Admin Acetaminophen (TYLenol 325MG TAB) 650 mg ONCE ONCE PO 07/15/25 11:00 07/15/25 11:03 DC 07/15/25 11:51 Insulin Human Regular (humuLIN R 100 UNIT/ML 3ML) 6 unit ONCE ONCE IV 07/15/25 12:00 07/15/25 12:01 DC 07/15/25 11:53 Sodium Chloride 1,000 ml @ 0 mls/hr ONCE ONCE IV 07/15/25 12:00 07/15/25 12:01 DC 07/15/25 11:53 Vital Signs Date Time Temp Pulse Resp B/P (MAP) Pulse Ox O2 Delivery O2 Flow Rate FiO2 07/15/25 13:13 98.8 81 20 147/62 97 Room Air* 0 21 07/15/25 11:30 98.8 81 20 152/60 98 Room Air* 0 21 07/15/25 10:53 99.0 82 17 165/88 97 Room Air 0 DX & DISP Disposition: Discharge Departure Impression: Primary Impression: Contusion of right knee Additional Impressions: Contusion of left leg, Uncontrolled diabetes mellitus with hyperglycemia Condition: Stable Additional Instructions: Your blood work today showed a glucose level of 444. You were given 6 units of regular insulin IV. Your repeat sugar in the emergency department was 211. An x-ray of your right knee and left leg were taken. No evidence of fractures or dislocations noted. Follow up with your primary care doctor tomorrow or next week. Return to the ER if you develop any new or worsening symptoms Referrals: NEPTALI VICTORIA PA-C (PCP) I have reviewed the case, and I agree with, Diagnosis and Plan I performed the substantive portion of the visit. I have reviewed and personally made and approve the management plan that is documented in the note by myself or the MARY. I acknowledge for responsibility for the patient's management plan. ALEXEI CLAYTON PAC Jul 15, 2025 13:24
== END 2025-07-15 14:00 | disposition home or self-care (01) ==
LOC: EDH 10:47
DX: S80.01XA Contusion of right knee, initial encounter (principal); S80.12XA Contusion of left lower leg, initial encounter; E11.65 Type 2 diabetes mellitus with hyperglycemia; E78.00 Pure hypercholesterolemia, unspecified; I10 Essential (primary) hypertension; Z88.5 Allergy status to narcotic agent; Z79.899 Other long term (current) drug therapy; Z79.82 Long term (current) use of aspirin; Z79.1 Long term (current) use of non-steroidal anti-inflammatories (NSAID); Z79.84 Long term (current) use of oral hypoglycemic drugs; Z87.19 Personal history of other diseases of the digestive system; Z87.442 Personal history of urinary calculi; W01.0XXA Fall on same level from slipping, tripping and stumbling without subsequent striking against object, initial encounter; Y93.89 Activity, other specified; Y92.89 Other specified places as the place of occurrence of the external cause; Y99.8 Other external cause status
CPT/HCPCS: 99284; 80048; 85025; 82948; 36415; 82010; 73562; 73590; J1815; J7030